=== PATIENT | male | born 1955 | race African-American/Black ===

== ENCOUNTER 2018-01-16 11:56 | Observation (INO) | payer SELFPAY ==
[2018-01-16 12:46] LABS: #Basophils 0.1 thou/uL (0.0-0.2); #Eosinphils 0.3 thou/uL (0.0-0.7); #Lymphocytes 2.2 thou/uL (1.20-3.40); #Monocytes 0.7 thou/uL (0.11-0.59); #Neutrophils 4.5 thou/uL (1.40-6.50); %Basophils 0.7 % (0.0-1.0); %Eosinophils 3.3 % (0.0-10.0); %Lymphocytes 28.3 % (21.0-51.0); %Monocytes 9.4 % (0.0-10.0); %Neutrophils 58.3 % (42.0-75.0); Hemoglobin 14.7 g/dL (14.0-18.0); Mean Corpuscular HGB CONC 32.3 g/dL (32.0-36.0); Mean Corpuscular Hemoglobin 28.8 pg (27.0-31.0); Mean Corpuscular Volume 89.1 fL (78.0-98.0); Mean Platelet Volume 8.2 fL (7.4-10.4); Platelet Count 210 thou/uL (130-400); RBC Distribution Width 13.6 % (11.5-14.5); White Blood Cell (WBC) Count 7.7 thou/uL (4.8-10.8)
[2018-01-16] MEDS ORDERED: Nitroglycerin 2% Ointment 1 INCH/1 GM Packet ONE (13:04)
--- NOTE | 2018-01-16 13:06 | RAD ---
PORTABLE CHEST: Date: 01/16/18 PROVIDED CLINICAL HISTORY: Cough. FINDINGS: Comparison with 09/29/15. The cardiac silhouette appears enlarged, which may be at least partially on the basis of portable kulwinder hnique. No focal consolidation, pleural fluid, or pneumothorax apparent. IMPRESSION: No evidence for an acute cardiopulmonary process. POS: [facility]
[2018-01-16 13:12] LABS: CKMB 3.8 ng/mL (0-6.6)
[2018-01-16 13:22] LABS: Troponin I Less than 0.010 ng/mL (< 0.028)
[2018-01-16 13:40] LABS: ALT (SGPT) 22 U/L (8-55); AST (SGOT) 28 U/L (5-34); Albumin 3.8 g/dL (3.4-4.8); Alkaline Phosphatase 158 U/L (40-150); Anion Gap 17 mmol/L (10-20); BUN (Urea Nitrogen) 15 mg/dL (8.4-25.7); Bilirubin, Total 0.6 mg/dL (0.2-1.2); CK (CPK) 272 U/L (30-200); Calc. Creatinine Clearance 0 mL/min (70-130); Calcium 8.7 mg/dL (7.8-10.44); Carbon Dioxide 19 mmol/L (23-31); Chloride 106 mmol/L (98-107); Estimated GFR-MDRD 80; Globulin 4.1 g/dL (2.4-3.5); Glucose 183 mg/dL (80-115); Lipase 14 U/L (8-78); Potassium 4.7 mmol/L (3.5-5.1); Protein, Total 7.9 g/dL (5.8-8.1); Sodium 137 mmol/L (136-145)
--- NOTE | 2018-01-16 15:06 | HP ---
PRIMARY CARE PHYSICIAN: [facility] call admission. REASON FOR ADMISSION: Chest pain. HISTORY OF PRESENT ILLNESS: This is a 62-year-old -Wel[place] male, who has a history of hypert ension and not on any medication, who came to the emergency room with a complaint of chest pain on th e left side, which started yesterday before going to bed. Because of pain, he was not able to sleep well. His pain was persistent about 6/10 in intensity. He was feeling some pressure as well as dull pain, and it was getting worse with movement as well as taking deep breath. He denies any associate d cough, but he feels shortness of breath with exertion. He denies any associated nausea, vomiting, diaphoresis. He denies any palpitation, dizziness, syncope. He denies any orthopnea, PND, or leg sw elling. Patient reports that he has hypertension, but he was not taking medication. He denies any exertion-r elated chest pain, palpitation, or shortness of breath. He denies any constipation, melena, diarrhea , or UTI symptoms. He denies any focal motor or sensory symptoms. In the emergency room, this patient had routine blood tests, which was unremarkable. His echocardiog sima was showing some repolarization-type of changes. He had slightly elevated D-dimer, but he was on room air and hypertensive. REVIEW OF SYSTEMS: The following complete review of systems was negative, unless otherwise mentioned in the HPI or below: Constitutional: Weight loss or gain, ability to conduct usual activities. Sk in: Rash, itching. Eyes: Double vision, pain. ENT/Mouth: Nose bleeding, neck stiffness, pain, te nderness. Cardiovascular: Palpitations, dyspnea on exertion, orthopnea. Respiratory: Shortness of breath, wheezing, cough, hemoptysis, fever, or night sweats. Gastrointestinal: Poor appetite, abdo chelsy pain, heartburn, nausea, vomiting, constipation, or diarrhea. Genitourinary: Urgency, frequen cy, dysuria, nocturia. Musculoskeletal: Pain, swelling. Neurologic/Psychiatric: Anxiety, depressi on. Allergy/Immunologic: Skin rash, bleeding tendency. Please see my HPI for pertinent positive an d negative. All other review of systems reviewed and negative except as mentioned in the HPI. The p atient denies any recent immobilization or any prolonged drive. He denies any calf tenderness. PAST MEDICAL HISTORY: Hypertension, untreated and uncontrolled; obesity; tobacco abuse disorder. PAST SURGICAL HISTORY: Right arm surgery, PICC line placement, incision and drainage for abscess of the right foot. PAST PSYCHIATRIC HISTORY: Reviewed and negative. SOCIAL HISTORY: Patient reports that he smokes about 5 to 6 cigarettes everyday basis. He drinks al cohol every weekend. He denies any other illicit drug abuse. He is not working. FAMILY HISTORY: No strong family history of premature coronary artery disease, stroke, or cancer. ALLERGIES: No known drug allergy. CURRENT HOME MEDICATIONS: The patient is not taking any prescribed or non-prescribed medication. EMERGENCY ROOM COURSE: Patient is given nitro patch and aspirin. PHYSICAL EXAMINATION: VITAL SIGNS: Blood pressure 180/81, pulse 82, respiratory rate 20, temperature 98.1, saturation 97% on room air, weight 98.8 kilograms. GENERAL: The patient is currently alert, awake, in no obvious acute distress. HEENT: Head: Normocephalic, atraumatic. Eyes: Pupils round, reactive to light. Extraocular muscl e intact. ENT: Oropharynx within normal limits. Moist mucous membranes. No oral lesion, no pharyn geal erythema, no exudate. NECK: Supple, no JVD, no thyromegaly, no carotid bruit, no jugular venous distention. LUNGS: Clear to auscultation without any rhonchi or rales. CARDIOVASCULAR: S1 and S2, regular. No murmur, no gallop, no rub. CHEST WALL: The patient does have mild discomfort in the left side of the chest. ABDOMEN: Obesity present. Bowel sounds present, nontender, nondistended. No organomegaly, no mass, no suprapubic tenderness, no Christensen's sign, no epigastric tenderness. BACK EXAMINATION: Unremarkable. No CVA tenderness. EXTREMITIES: Upper extremities, passive movement of all joints are normal. Lower extremities, no ed flavia. Good peripheral pulsation, no calf tenderness. SKIN: No skin rash. HEMATOLOGICAL SYSTEM: No lymphadenopathy. PSYCHIATRIC: Normal affect. SIGNIFICANT LABORATORY DATA: EKG showing normal sinus rhythm, nonspecific T-wave changes in lateral lead, which is unchanged from previous. Chest x-ray, based on my review, no acute cardiopulmonary pr ocess. CBC: WBC 7.7, hemoglobin 14.7, platelets 210. BNP 79.1. CK-MB 3.8. D-dimer 0.55. CK-MB 3 .8, troponin I less than 0.010. Lipase 14. CK 272. Sodium 137, potassium 4.7, chloride 106, carbon dioxide 19, anion gap 17, BUN 15, creatinine 1.12, glucose 183, calcium 8.7. LFT: Protein 7.9, alb umin 3.8, alkaline phosphatase is 158, AST 28, ALT 22. ASSESSMENT AND PLAN: 1. Acute chest pain. Patient's chest pain description is mostly nonanginal. He has chest pain star consuelo last night and constant without any stop. He has component of pleuritic pain and movement-relate d pain. I am suspecting mostly costochondritis, but given his slight elevated D-dimer, we need to ru le out pulmonary embolism, though probability of pulmonary embolism in this particular patient is ext remely low given hypertension and saturating normal. We will also perform nuclear medicine exercise stress test tomorrow morning for rule out ischemia. We will check lipid profile for risk stratificat ion. Meanwhile, we will continue the aspirin 325 mg p.o. daily, nitro patch q.8 hourly, and we will control his pain with the pain medication. We will also try Pepcid 20 mg p.o. b.i.d. 2. Hypertension, uncontrolled, likely due to his noncompliance with the treatment. We are going to start lisinopril 10 mg p.o. daily. Upon discharge, patient will need Coreg 6.25 mg p.o. b.i.d. We a re not giving beta delio, because we are planning to do stress test tomorrow. We will also continu e the nitro patch q.8 hourly. 3. Chronic kidney disease, stage 2. We will monitor renal function. 4. Tobacco abuse disorder. Smoking cessation counseling given. Healthy lifestyle measures discusse d with the patient. 5. Obesity. Dietary education given, weight loss education given. Healthy lifestyle measures discu ssed with the patient. 6. Deep venous thrombosis prophylaxis not needed, because we are expecting discharge in 24 hours. 7. Gastrointestinal prophylaxis, Pepcid 20 mg p.o. b.i.d. 8. Code status: The patient is FULL CODE. The patient does not have any surrogate decision maker. Disposition plan based on clinical course. We are expecting patient's stay in hospital [address] of care discussed with the patient's family member at bedside in the emergency room.
[2018-01-16] MEDS ORDERED: Artificial Tears 18 DROP/0.9 ML EA EYE PRN (15:16)
[2018-01-16] MEDS ORDERED: Nitroglycerin 0.4 MG TAB (25 Tab Bottle) SL PRN (15:16)
[2018-01-16] MEDS ORDERED: Senokot 8.6 MG TAB PO PRN (15:16)
[2018-01-16] MEDS ORDERED: Sodium Chloride 0.65% Nasal 44 ML BOT EA NARE PRN (15:16)
[2018-01-16] MEDS ORDERED: Zolpidem Tartrate 5 MG TAB PO PRN (15:16)
[2018-01-16] MEDS ORDERED: hydrALAZINE 20 MG/ML VIAL SLOW IVP PRN (15:16)
[2018-01-16] MEDS ORDERED: Loratadine 10 MG TAB PO PRN (15:16)
[2018-01-16] MEDS ORDERED: Eucerin (Mineral Oil/Petrolatum,White) 30 gm Jar TOP PRN (15:16)
[2018-01-16] MEDS ORDERED: Diabetic Tussin 200 MG/10 ML UDCUP PO PRN (15:16)
[2018-01-16] MEDS ORDERED: Ondansetron HCl/PF 4 MG/2 ML Vial IVP PRN (15:16)
[2018-01-16] MEDS ORDERED: Chloraseptic Spray 180 ml Bottle PO PRN (15:16)
[2018-01-16] MEDS ORDERED: Acetaminophen 325 MG TAB PO PRN (15:16)
[2018-01-16] MEDS ORDERED: Mag-Al 1200 mg/1200 mg/30 ML UDCUP PO PRN (15:16)
[2018-01-16] MEDS ORDERED: Ondansetron ODT 4 MG TAB PO PRN (15:16)
[2018-01-16] MEDS ORDERED: Milk Of Magnesia 30 ML UDCUP PO PRN (15:16)
[2018-01-16] MEDS ORDERED: Loperamide HCl 2 MG CAP PO PRN (15:16)
[2018-01-16 16:17] VITALS: BMI 29.9
[2018-01-16 17:05] LABS: Troponin I Less than 0.010 ng/mL (< 0.028)
[2018-01-16] MEDS: Famotidine 20 MG TAB PO SCH (19:46)
[2018-01-16] MEDS: HYDROcodone/Acetaminophen 5/325 mg Tablet PO PRN (19:46)
[2018-01-16] MEDS: Nitroglycerin 2% Ointment 1 INCH/1 GM Packet TOP SCH (19:48)
[2018-01-16 19:49] LABS: Troponin I Less than 0.010 ng/mL (< 0.028)
[2018-01-16 19:55] LABS: Medtox Reader # READER 4
[2018-01-16 19:57] LABS: Amphetamine Not Detected (NotDetected); Barbiturates Screen Not Detected (NotDetected); Benzodiazepine Screen Not Detected (NotDetected); Cocaine Metabolite Screen Detected (NotDetected); Medtox Control Line Valid? VALID (VALID); Methadone Not Detected (NotDetected); Methamphetamine Not Detected (NotDetected); Opiate Screen Not Detected (NotDetected); Oxycodone Screen Not Detected (NotDetected); Phencyclidine (PCP) Not Detected (NotDetected); THC/Cannabinoid Screen Not Detected (NotDetected); Tricyclic Screen Not Detected (NotDetected)
[2018-01-17] MEDS: HYDROcodone/Acetaminophen 5/325 mg Tablet PO PRN (00:09)
[2018-01-17 04:46] LABS: Cardiac Risk 4.5 (Less than 4.5)
[2018-01-17] MEDS: Nitroglycerin 2% Ointment 1 INCH/1 GM Packet TOP SCH ×2 (05:03→13:03)
[2018-01-17] MEDS ORDERED: Aspirin 325 MG TAB PO SCH (09:00)
[2018-01-17] MEDS ORDERED: Amlodipine 10 MG TAB PO SCH (09:00)
[2018-01-17] MEDS ORDERED: Lisinopril 10 MG TAB PO SCH (09:00)
--- NOTE | 2018-01-17 10:39 | PDOC.PN ---
- Subjective Encounter Start Date: 01/17/18 Encounter Start Time: 07:10 -: old records requested/rev Patient seen and examined. No new complaints. No overnight events - Objective Resuscitation Status: Resuscitation Status FULL:Full Resuscitation MAR Reviewed: Yes Vital Signs & Weight: Vital Signs (12 hours) Temp Pulse Resp BP BP Pulse Ox 01/17/18 08:25 98.2 F 68 19 01/17/18 07:43 98.2 F 68 19 175/99 H 97 01/17/18 04:50 71 20 140/67 95 01/17/18 03:49 98.0 F 76 16 191/91 H 95 01/16/18 23:55 98.0 F 79 20 169/75 H 97 Weight Weight 215 lb I&O: 01/16/18 01/17/18 01/18/18 06:59 06:59 06:59 Intake Total 2650 Output Total 450 Balance 2200 Result Diagrams: 01/16/18 12:35 01/16/18 12:35 EKG Reviewed by me: Yes (nsr) Phys Exam - Physical Examination Constitutional: NAD HEENT: PERRLA, moist MMs, sclera anicteric Neck: no JVD, supple Respiratory: no wheezing, no rales, no rhonchi Cardiovascular: RRR, no significant murmur, no rub Gastrointestinal: soft, non-tender, no distention, positive bowel sounds Musculoskeletal: no edema, pulses present Neurological: non-focal, normal sensation, moves all 4 limbs Lymphatic: no nodes Psychiatric: normal affect, A&O x 3 Skin: no rash, normal turgor Dx/Plan (1) Chest pain Code(s): R07.9 - CHEST PAIN, UNSPECIFIED Status: Acute (2) Cocaine abuse Code(s): F14.10 - COCAINE ABUSE, UNCOMPLICATED Status: Acute (3) CKD (chronic kidney disease), stage II Code(s): N18.2 - CHRONIC KIDNEY DISEASE, STAGE 2 (MILD) Status: Chronic (4) Hypertension Code(s): I10 - ESSENTIAL (PRIMARY) HYPERTENSION Status: Chronic (5) Obesity (BMI 30.0-34.9) Code(s): E66.9 - OBESITY, UNSPECIFIED Status: Chronic (6) Tobacco abuse Code(s): Z72.0 - TOBACCO USE Status: Chronic - Plan cont current plan of care, plan discussed w/ family * medication reviewed as below * symptomatic treatment * see discharge summery later today * stable for discharge today if stress test negative * discharge medication reconciliation done. . Review of Systems - Review of Systems Eyes: negative: Pain, Vision Change, Conjunctivae Inflammation, Eyelid Inflammation, Redness, Other ENT: negative: Ear Pain, Ear Discharge, Nose Pain, Nose Discharge, Nose Congestion, Mouth Pain, Mouth Swelling, Throat Pain, Throat Swelling, Other Respiratory: negative: Cough, Dry, Shortness of Breath, Hemoptysis, SOB with Excertion, Pleuritic Pain, Sputum, Wheezing Cardiovascular: negative: chest pain, palpitations, orthopnea, paroxysmal nocturnal dyspnea, edema, light headedness, other Gastrointestinal: negative: Nausea, Vomiting, Abdominal Pain, Diarrhea, Constipation, Melena, Hematochezia, Other Genitourinary: negative: Dysuria, Frequency, Incontinence, Hematuria, Retention , Other Musculoskeletal: negative: Neck Pain, Shoulder Pain, Arm Pain, Back Pain, Hand Pain, Leg Pain, Foot Pain, Other Skin: negative: Rash, Lesions, Jez, Bruising, Other - Medications/Allergies Allergies/Adverse Reactions: Allergies Allergy/AdvReac Type Severity Reaction Status Date / Time No Known Drug Allergies Allergy Verified 09/29/15 20:43 Medications: Current Medications Acetaminophen (Tylenol) 650 mg PO Q4H PRN PRN Reason: Headache/Fever or Pain Hydrocodone Bitart/Acetaminophen ([place] 5/325) 1 tab PO Q4H PRN PRN Reason: Moderate Pain (4-6) Last Admin: 01/17/18 00:09 Dose: 1 tab Al Hydroxide/Mg Hydroxide (Maalox) 30 ml PO Q6H PRN PRN Reason: Heartburn or Indigestion Amlodipine Besylate (Norvasc) 10 mg PO DAILY [facility] Artificial Tears (Tears Naturale) 0 drop EA EYE PRN PRN PRN Reason: Dry Eyes Aspirin (Aspirin) 325 mg PO DAILY [facility] Famotidine (Pepcid) 20 mg PO BID [facility] Last Admin: 01/16/18 19:46 Dose: 20 mg Guaifenesin (Robitussin Sf) 200 mg PO Q4H PRN PRN Reason: Cough Hydralazine HCl (Apresoline) 10 mg SLOW IVP Q4H PRN PRN Reason: Systolic BP > 180 Last Admin: 01/17/18 03:49 Dose: 10 mg Lisinopril (Zestril) 10 mg PO DAILY [facility] Last Admin: 01/17/18 00:09 Dose: 10 mg Loperamide HCl (Imodium) 2 mg PO PRN PRN PRN Reason: Diarrhea/Loose Stools Loratadine (Claritin) 10 mg PO DAILYPRN PRN PRN Reason: Sinus Symptoms Magnesium Hydroxide (Milk Of Magnesium) 30 ml PO DAILYPRN PRN PRN Reason: Constipation Mineral Oil/White Petrolatum (Eucerin Cream) 0 gm TOP BIDPRN PRN PRN Reason: Dry Skin Nitroglycerin (Nitrostat) 0.4 mg SL Q5MIN PRN PRN Reason: Chest Pain Nitroglycerin (Nitro-Bid 2% Ointment) 0.5 inch TOP Q8HR [facility] Last Admin: 01/17/18 05:03 Dose: Not Given Ondansetron HCl (Zofran Odt) 4 mg PO Q6H PRN PRN Reason: Nausea/Vomiting Ondansetron HCl (Zofran) 4 mg IVP Q6H PRN PRN Reason: Nausea/Vomiting Phenol (Chloraseptic [place] 180 Ml Bot) 0 ml PO PRN PRN PRN Reason: Sore Throat Senna (Senokot) 2 tab PO HSPRN PRN PRN Reason: Constipation Sodium Chloride ([place] Nasal [place] 0.65%) 0 ml EA NARE QIDPRN PRN PRN Reason: Nasal Congestion Zolpidem Tartrate (Ambien) 5 mg PO HSPRN PRN PRN Reason: Insomnia
[2018-01-17] MEDS: Famotidine 20 MG TAB PO SCH (11:29)
[2018-01-17 12:07] VITALS: TEMP 97.5
[2018-01-17] MEDS ORDERED: cloNIDine 0.1 MG TAB PO PRN (12:32)
[2018-01-17 12:48] VITALS: BP 169/83
--- NOTE | 2018-01-17 12:50 | NM ---
NUCLEAR MEDICINE MYOCARDIAL PERFUSION SCAN: DATE: 01/17/18. COMPARISON: None. HISTORY: Chest pain. TECHNIQUE: SPECT imaging of the left ventricular myocardium obtained during rest and stress following the intrav enous administration of 27.3 and 9.0 mCi Technetium 99m labelled sestamibi. FINDINGS: No discrete fixed or reversible defect is noted. TID is 1.23. Wall motion evaluation demonstrates mild global hypokinesis with a left ventricular eje ction fraction estimated at 38%. EDV is 142 mL and ESV is 88 mL. IMPRESSION: Global mild hypokinesis with the left ventricular ejection fraction at 38%. TID Is 1.23. No focal r eversible defect seen. POS: [facility]
--- NOTE | 2018-01-17 12:56 | DIS ---
PRIMARY CARE PHYSICIAN: [facility]. DATE OF ADMISSION: 01/16/2018 DATE OF DISCHARGE: 01/17/2018 DISCHARGE DISPOSITION: Home. PRIMARY DISCHARGE DIAGNOSES: 1. Hypertensive urgency. 2. Chest pain, likely due to cocaine abuse. SECONDARY DISCHARGE DIAGNOSES: Tobacco abuse disorder, polysubstance drug abuse , obesity with body mass index 30, hypertension, CKD stage 2. PRIMARY PROCEDURE/OPERATION: None. RADIOLOGICAL INVESTIGATION: Chest x-ray normal. Stress test revealed no reversible ischemia. SIGNIFICANT LABORATORY DATA: WBC 7.7, hemoglobin 14.7, platelet 210. D-dimer 0.55. Sodium 137, creatinine 1.12, AST 28, ALT 22, alkaline phosphatase is 158 , albumin 3.8. Cardiac enzymes negative. BNP 79.1. LDL 78, lipase 14. Urine drug screen positive for cocaine. DISCHARGE MEDICATIONS: Norvasc 10 mg p.o. daily, aspirin 81 mg p.o. daily, clonidine 0.1 mg p.o. b.i.d., Pepcid 20 mg p.o. b.i.d., lisinopril 10 mg p.o. daily. CONTRAINDICATIONS: None. CODE STATUS: FULL CODE. INPATIENT CONSULTANTS: None. ALLERGIES: No known drug allergy. DISCHARGE PLAN: Post hospital, the patient will follow up with primary care physician in 1 or 2 weeks. HOSPITAL COURSE: The patient is a 62-year-old male who came to emergency room with complaint of chest pain. His chest pain description was atypical. He was changing his character of chest pain. This patient was having very high blood pressure on admission. We suspected drug abuse and that is why we did urine drug screen and it was positive for cocaine that was contributing to his chest pain and elevated hypertension. He had slightly elevated D-dimer, but that was not contributing to any thromboembolic disorder. This patient was on room air and his description was not consistent with thromboembolic disorder and was extremely very, very low. We did not pursue any investigation at this point. He remained stable while in the hospital. He was hypertensive and that is why we started lisinopril, amlodipine and clonidine as above. Necessary patient education about avoidance of smoking cocaine abuse was given. Healthy lifestyle measures discussed with the patient. The patient underwent stress test and that was negative for any reversible ischemia. His troponins remain negative. His telemetry remained normal. His BNP is normal. At this point, patient is medically stable for discharge today. The patient is seen and examined at bedside today. Please see my progress note from today for further details. MTDD
[2018-01-17] MEDS ORDERED: ADENOSINE 60 MG/20 ML VIAL ONE (13:12)
[2018-01-17] MEDS ORDERED: cloNIDine 0.1 MG TAB PO SCH (21:00)
== END 2018-01-17 14:38 | disposition home or self-care (01) ==
LOC: ERS 11:56 → 2SW 15:12
PROVIDERS: ADMIT Internal Medicine; ATTEND Internal Medicine
DX: R07.9 Chest pain, unspecified (principal); I16.0 Hypertensive urgency; I12.9 Hypertensive chronic kidney disease with stage 1 through stage 4 chronic kidney disease, or unspecified chronic kidney disease; N18.2 Chronic kidney disease, stage 2 (mild); E66.9 Obesity, unspecified; F17.210 Nicotine dependence, cigarettes, uncomplicated; F14.10 Cocaine abuse, uncomplicated; Z68.30 Body mass index [BMI] 30.0-30.9, adult; Z79.82 Long term (current) use of aspirin; Z79.899 Other long term (current) drug therapy
CPT/HCPCS: 36415; 71045; 78452; 80053; 80061; 80306; 82550; 82553; 83690; 83880; 84484; 85025; 85379; 93005; 93017; 96374; 99406; A9500; G0378; J0153; J0360

== ENCOUNTER 2018-10-12 11:07 | Inpatient (IN) | payer SELFPAY ==
[2018-10-12] MEDS ORDERED: Nitroglycerin 0.4 MG TAB 1 EACH ONE (11:33)
--- NOTE | 2018-10-12 11:41 | RAD ---
EXAM: XR Chest 1 View Portable PROVIDED CLINICAL HISTORY: Left-sided chest pain with pain radiating to left arm. Diaphoresis. COMPARISON: 01/17/2028 FINDINGS: Cardiac pacing device overlies the right upper chest and left upper quadrant. The cardiac silhouette is magnified by projection. The pulmonary vasculature is within normal limits. The lungs remain clear . There is prominent right glenohumeral osteoarthropathy again noted with degenerative changes again seen in the spine. No other interval change. IMPRESSION: No acute cardiopulmonary process.
[2018-10-12 11:44] LABS: #Eosinphils 0.1 thou/uL (0.0-0.7); #Monocytes 0.7 thou/uL (0.11-0.59); #Neutrophils 5.4 thou/uL (1.40-6.50); %Basophils 0.5 % (0.0-1.0); %Eosinophils 1.4 % (0.0-10.0); %Lymphocytes 31.9 % (21.0-51.0); %Monocytes 7.9 % (0.0-10.0); %Neutrophils 58.4 % (42.0-75.0); Hemoglobin 15.1 g/dL (14.0-18.0); Mean Corpuscular HGB CONC 32.8 g/dL (32.0-36.0); Mean Corpuscular Volume 88.3 fL (78.0-98.0); Mean Platelet Volume 7.7 fL (7.4-10.4); Platelet Count 262 thou/uL (130-400); RBC Distribution Width 13.7 % (11.5-14.5); Red Blood Cell (RBC) Count 5.22 mill/uL (4.70-6.10); White Blood Cell (WBC) Count 9.3 thou/uL (4.8-10.8)
[2018-10-12] MEDS ORDERED: Iopamidol 370 76% 100 ML VIAL ONE (11:59)
[2018-10-12 12:01] LABS: ALT (SGPT) 35 U/L (8-55); AST (SGOT) 43 U/L (5-34); Albumin 3.8 g/dL (3.4-4.8); Alkaline Phosphatase 126 U/L (40-150); Anion Gap 13 mmol/L (10-20); BUN (Urea Nitrogen) 16 mg/dL (8.4-25.7); Bilirubin, Total 0.4 mg/dL (0.2-1.2); CK (CPK) 335 U/L (30-200); Calc. Creatinine Clearance 0 mL/min (70-130); Calcium 9.4 mg/dL (7.8-10.44); Carbon Dioxide 27 mmol/L (23-31); Estimated GFR-MDRD 74; Globulin 4.2 g/dL (2.4-3.5); Glucose 148 mg/dL (80-115); Lipase 7 U/L (8-78)
[2018-10-12] MEDS ORDERED: Heparin 10,000 UNITS/1 ML VIAL ONE (12:03)
[2018-10-12] MEDS ORDERED: Atropine Sulfate 1 mg/10 ml Syringe ONE (12:03)
[2018-10-12] MEDS ORDERED: Aspirin Chewable 81 MG TAB ONE (12:03)
[2018-10-12] MEDS ORDERED: Nitroglycerin 100MG/250ML BOT 250 ML ONE (12:16)
[2018-10-12 12:18] LABS: Chloride 101 mmol/L (98-107); Potassium 4.1 mmol/L (3.5-5.1); Sodium 137 mmol/L (136-145)
[2018-10-12] MEDS ORDERED: Adenosine 6 MG/2 ML VIAL ONE (12:19)
[2018-10-12 12:33] LABS: CKMB 8.7 ng/mL (0-6.6)
[2018-10-12] MEDS ORDERED: traMADol HCl 50 MG TAB PO PRN (12:50)
[2018-10-12] MEDS ORDERED: Milk Of Magnesia 30 ML UDCUP PO PRN (12:50)
[2018-10-12] MEDS ORDERED: Zolpidem Tartrate 5 MG TAB PO PRN (12:50)
[2018-10-12] MEDS ORDERED: Acetaminophen/Codeine 30-300mg Tablet PO PRN (12:50)
[2018-10-12] MEDS ORDERED: Mag-Al 1200 mg/1200 mg/30 ML UDCUP PO PRN (12:50)
[2018-10-12] MEDS ORDERED: Nitroglycerin 0.4 MG TAB (25 Tab Bottle) SL PRN (12:50)
[2018-10-12] MEDS ORDERED: Morphine 2 MG/ML SYRINGE SLOW IVP PRN (12:50)
[2018-10-12] MEDS ORDERED: Sodium Chloride 0.9% 1,000 ML IV SCH (13:00)
[2018-10-12] MEDS ORDERED: hydrALAZINE 20 MG/ML VIAL ONE (13:33)
--- NOTE | 2018-10-12 13:37 | HP ---
REASON FOR ADMISSION: Inferior ST-elevation NC. HISTORY OF PRESENT ILLNESS: Mr. Jennings is a 62-year-old gentleman, who comes to the hospital for chest pain. He started having chest pain at 7:30 a.m. this morning. He had breakfast prior to that. He continued to have pain, so showed up to the hospital close to noon. He had an EKG initially that showed ischemic inferior changes. A repeat EKG showed complete heart block and ST elevation in the inferior leads, so the STEMI pager was activated. On my evaluation initially, he had ongoing chest pain with ongoing ST elevations, so we brought him emergently to the catheterization lab where he was found to have a subtotaled and eventually occluded RCA. This was wired, ballooned open, and stented successfully with bare-metal stent. He had also a 70% lesion on the mid RCA which also received a bare-metal stent. He has moderate residual disease in a diagonal. Nothing flow limiting that would require further intervention. He is chest pain free. His complete heart block has resolved completely and is doing better. PAST MEDICAL HISTORY: 1. Hypertension. 2. Obesity. 3. Tobacco abuse. 4. Drug abuse in the past with cocaine. 5. Noncompliance. SURGICAL HISTORY: 1. Right arm surgery. 2. Incision and drainage of abscess in the right foot. SOCIAL HISTORY: Smokes about 5 cigarettes a day. Drinks alcohol only on weekends. Denies drug use, but has been positive for cocaine in the past. FAMILY HISTORY: No early coronary artery disease. OUTPATIENT MEDICATIONS: None. ALLERGIES: NO KNOWN DRUG ALLERGIES. REVIEW OF SYSTEMS: A 12-point review of systems was done and was found to be negative unless stated in the History of Present Illness. PHYSICAL EXAMINATION: VITAL SIGNS: Temperature 98.2, pulse 80, respiratory rate 20, saturations 98% on 2 L nasal cannula, blood pressure 138/62. GENERAL: Awake, alert, and oriented x3, in no distress. HEENT: Normocephalic and atraumatic. NECK: Supple. LUNGS: Clear. CARDIOVASCULAR: S1 and S2. No S3 or S4. No murmurs. ABDOMEN: Soft. Positive bowel sounds. EXTREMITIES: No edema. SKIN: Warm and dry. LABORATORY DATA: Laboratory work was reviewed. CBC with a white count of 9.3, hemoglobin of 15, hematocrit of 46, platelet count of 262. Coags were reviewed. Chemistries were reviewed. Troponin initially was 0.3 with a CK-MB of 8.7. Glucose was 148, but this is nonfasting, globulin of 4.2, lipase is 7. Chest x-ray on admission today showed no acute cardiopulmonary process. EKG was reviewed. ASSESSMENT: 1. Acute inferior ST-elevation myocardial infarction. 2. Hypertension. 3. Noncompliance. 4. Substance abuse in the past. PLAN: 1. Dual anticoagulant therapy with Plavix and aspirin for minimum of 1 month and then aspirin for life. 2. High dose statins. 3. We will start beta-delio and MILLY inhibitor tomorrow as long as blood pressure allows. 4. Echocardiogram pending. 5. Counseled on cessation of substance abuse. 6. Full code. 7. We will admit to the ICU overnight, probably transfer to the floor if stable tomorrow. DISPOSITION: Home when clinically indicated. Job ID: [id number]
[2018-10-12 15:04] LABS: CKMB 43.1 ng/mL (0-6.6); Troponin I 1.771 ng/mL (< 0.028)
[2018-10-12] MEDS ORDERED: Morphine 2 MG/ML SYRINGE ONE (15:21)
[2018-10-12] MEDS ORDERED: hydrALAZINE 20 MG/ML VIAL SLOW IVP SCH (16:15)
[2018-10-12] MEDS ORDERED: Fentanyl 100 MCG/2 ML VIAL ONE (16:25)
--- NOTE | 2018-10-12 17:10 | EKG ---
Test Reason : Blood Pressure : / mmHG Vent. Rate : 082 BPM Atrial Rate : 082 BPM P-R Int : 176 ms QRS Dur : 100 ms QT Int : 410 ms P-R-T Axes : 067 061 042 degrees QTc Int : 479 ms Normal sinus rhythm Possible Left atrial enlargement Prolonged QT Abnormal ECG When compared with ECG of 16-JAN-2018 12:01, Nonspecific T wave abnormality no longer evident in Inferior leads Confirmed by Laura MUJICA ([id number]) on 10/12/2018 5:09:45 PM Referred By: THOMPSON Confirmed By:Laura MUJICA
[2018-10-12] MEDS ORDERED: Fentanyl 100 MCG/2 ML VIAL SLOW IVP SCH (17:15)
[2018-10-12 18:27] VITALS: BMI 30.9
[2018-10-12 19:59] LABS: CKMB 86.1 ng/mL (0-6.6); Troponin I 10.359 ng/mL (< 0.028)
[2018-10-12 20:23] LABS: Medtox Reader # READER 1
[2018-10-12 20:24] LABS: Amphetamine Not Detected (NotDetected); Barbiturates Screen Not Detected (NotDetected); Benzodiazepine Screen Not Detected (NotDetected); Cocaine Metabolite Screen Detected (NotDetected); Medtox Control Line Valid? VALID (VALID); Methadone Not Detected (NotDetected); Methamphetamine Not Detected (NotDetected); Opiate Screen Detected (NotDetected); Oxycodone Screen Not Detected (NotDetected); Phencyclidine (PCP) Not Detected (NotDetected); THC/Cannabinoid Screen Not Detected (NotDetected); Tricyclic Screen Not Detected (NotDetected)
[2018-10-12] MEDS: Atorvastatin Calcium 40 MG TAB PO SCH (20:30)
[2018-10-13 06:12] LABS: #Basophils 0.1 thou/uL (0.0-0.2); #Eosinphils 0.1 thou/uL (0.0-0.7); #Lymphocytes 2.4 thou/uL (1.20-3.40); #Monocytes 0.8 thou/uL (0.11-0.59); %Basophils 0.7 % (0.0-1.0); %Eosinophils 0.8 % (0.0-10.0); %Lymphocytes 25.5 % (21.0-51.0); %Monocytes 8.3 % (0.0-10.0); %Neutrophils 64.7 % (42.0-75.0); Hemoglobin 13.7 g/dL (14.0-18.0); Mean Corpuscular HGB CONC 31.1 g/dL (32.0-36.0); Mean Corpuscular Hemoglobin 27.6 pg (27.0-31.0); Mean Corpuscular Volume 88.8 fL (78.0-98.0); Mean Platelet Volume 7.8 fL (7.4-10.4); Platelet Count 238 thou/uL (130-400); RBC Distribution Width 13.7 % (11.5-14.5); Red Blood Cell (RBC) Count 4.97 mill/uL (4.70-6.10); White Blood Cell (WBC) Count 9.2 thou/uL (4.8-10.8)
[2018-10-13 06:33] LABS: ALT (SGPT) 30 U/L (8-55); AST (SGOT) 64 U/L (5-34); Albumin 3.2 g/dL (3.4-4.8); Alkaline Phosphatase 103 U/L (40-150); Anion Gap 11 mmol/L (10-20); BUN (Urea Nitrogen) 13 mg/dL (8.4-25.7); Bilirubin, Total 0.6 mg/dL (0.2-1.2); Calc. Creatinine Clearance 121 mL/min (70-130); Calcium 9.1 mg/dL (7.8-10.44); Carbon Dioxide 22 mmol/L (23-31); Chloride 107 mmol/L (98-107); Cholesterol 140 mg/dl (< 200 Desired); Estimated GFR-MDRD Greater than 90; Globulin 3.7 g/dL (2.4-3.5); Glucose 103 mg/dL (80-115); HDL Cholesterol 28 mg/dL (>60 Neg Risk); LDL Cholesterol, Calculated 87 mg/dL; Potassium 4.1 mmol/L (3.5-5.1); Protein, Total 6.9 g/dL (5.8-8.1); Sodium 136 mmol/L (136-145); Triglycerides 127 mg/dL (Less than 150)
[2018-10-13 06:50] LABS: Free T4 (Free Thyroxine) 0.94 ng/dL (0.70-1.48); Thyroid Stimulating Hormone 0.6646 uIU/mL (0.35-4.94)
[2018-10-13] MEDS ORDERED: Lisinopril 2.5 MG TAB PO SCH (09:00)
[2018-10-13] MEDS: Clopidogrel Bisulfate 75 MG TAB PO SCH (09:28)
[2018-10-13] MEDS: Metoprolol Tartrate 25 MG TAB PO SCH ×2 (09:29→20:39)
[2018-10-13] MEDS: Aspirin Chewable 81 MG TAB PO SCH (09:29)
[2018-10-13 10:45] LABS: CKMB 37.5 ng/mL (0-6.6)
--- NOTE | 2018-10-13 16:25 | PDOC.CTH ---
Cardiology Progress Note - Subjective He is doing well. No chest pain. - Objective Vital Signs Temp Pulse Pulse Pulse Resp BP BP 10/13/18 16:15 99 F 69 20 10/13/18 16:00 99 F 10/13/18 15:00 97.9 F 10/13/18 14:00 98.8 F 10/13/18 12:00 98.1 F 10/13/18 09:56 72 73 156/94 H 10/13/18 09:27 86 159/77 H 10/13/18 08:00 10/13/18 07:00 98.7 F BP BP Pulse Ox Pulse Ox Pulse Ox 10/13/18 16:15 163/67 H 97 10/13/18 16:00 10/13/18 15:00 10/13/18 14:00 10/13/18 12:00 10/13/18 09:56 175/90 H 96 96 10/13/18 09:27 10/13/18 08:00 96 10/13/18 07:00 Admit Weight 222 lb 3.615 oz Weight 222 lb 3.615 oz 10/12/18 10/13/18 10/14/18 06:59 06:59 06:59 Intake Total 1463 720 Output Total 500 300 Balance 963 420 - Physical Examination General/Neuro: alert & oriented x3, NAD Neck: no JVD present Lungs: CTA, unlabored respirations Heart: RRR Abdomen: NT/ND Extremities: other: (no edema) - Telemetry Telemetry Rhythm: NSR - Labs Result Diagrams: 10/13/18 05:52 10/13/18 05:52 Troponin/CKMB CK-MB (CK-2) 37.5 ng/mL (0-6.6) H* 10/13/18 09:40 Troponin I 7.276 ng/mL (< 0.028) H* 10/13/18 09:40 - Assessment/Plan 1. Acute inferior STEMI. 2. HTN 3. Noncompliacne 4. Substance abuse PLAN: - Cocaine positive. - Counselled on cessation og tobacco and cocaine,. - JUST[place] for 1 month ideally for one year. - Will increase Lisinopril for better BP control. - High dos statins. - Will transfer to telemetry. - Likely home tomorrow.
[2018-10-13] MEDS: Atorvastatin Calcium 40 MG TAB PO SCH (20:39)
--- NOTE | 2018-10-14 00:29 | CON ---
DATE OF CONSULTATION: 10/13/2018 HISTORY OF PRESENT ILLNESS: Mr. Jennings is a very pleasant 62-year-old male who recreationally uses cocaine. He came in with myocardial infarction, underwent emergent cardiac catheterization with stenting. He says he is pain-free now. PAST MEDICAL HISTORY: 1. Remarkable for hypertension. 2. History of tobacco use. 3. History of surgery on his right arm and incision and drainage of an abscess of his right foot. SOCIAL HISTORY: He smokes 5 cigarettes a day. Occasionally uses cocaine. Drinks alcohol on the weekends. FAMILY HISTORY: Negative for lung disease in early age. ALLERGIES: HE HAS NO REPORTED ALLERGIES. REVIEW OF SYSTEMS: 10 point review of systems completed, completely negative. PHYSICAL EXAMINATION: GENERAL: He is a very pleasant gentleman, in no distress. He is afebrile. Heart rate 69, respiratory rate 20, oximetry is 97% on room air, blood pressure 163/ 67. HEENT: His pupils are equal. Sclerae are anicteric. NECK: Supple. No lymphadenopathy. LUNGS: Clear. HEART: Regular rhythm. S1, S2 normal. No murmur or gallop. ABDOMEN: Soft and nontender. No masses. EXTREMITIES: Without clubbing, cyanosis, or edema. NEUROLOGY: Grossly nonfocal. LABORATORY DATA: White count is 9.2, hemoglobin 13.7, platelets 238. Sodium 136, potassium 4.1, chloride 107, bicarb 22, BUN 13, creatinine 0.9, glucose 103. Troponin peaked at 10.3. IMPRESSION: 1. Myocardial infarction status post stenting. 2. Cocaine use. We discussed abstinence from tobacco and cocaine. 3. He says he has done with his extracurricular activities. Hopefully, he will proceed down the road in a stable fashion. We will see him as long as he is in the Critical Care Unit. TIME SPENT: This is a 70-minute consult, with greater than 50% of the time spent on the unit coordinating care. Job ID: [id number] MTDD
[2018-10-14 08:31] LABS: #Basophils 0.1 thou/uL (0.0-0.2); #Eosinphils 0.2 thou/uL (0.0-0.7); #Lymphocytes 2.4 thou/uL (1.20-3.40); #Monocytes 0.8 thou/uL (0.11-0.59); #Neutrophils 4.4 thou/uL (1.40-6.50); %Basophils 0.7 % (0.0-1.0); %Eosinophils 2.3 % (0.0-10.0); %Lymphocytes 30.9 % (21.0-51.0); %Monocytes 9.7 % (0.0-10.0); %Neutrophils 56.3 % (42.0-75.0); Hemoglobin 13.5 g/dL (14.0-18.0); Mean Corpuscular HGB CONC 30.9 g/dL (32.0-36.0); Mean Corpuscular Hemoglobin 27.7 pg (27.0-31.0); Mean Corpuscular Volume 89.7 fL (78.0-98.0); Mean Platelet Volume 7.9 fL (7.4-10.4); Platelet Count 235 thou/uL (130-400); RBC Distribution Width 13.8 % (11.5-14.5); Red Blood Cell (RBC) Count 4.89 mill/uL (4.70-6.10); White Blood Cell (WBC) Count 7.9 thou/uL (4.8-10.8)
[2018-10-14 08:49] LABS: ALT (SGPT) 39 U/L (8-55); AST (SGOT) 47 U/L (5-34); Albumin 3.3 g/dL (3.4-4.8); Alkaline Phosphatase 116 U/L (40-150); Anion Gap 12 mmol/L (10-20); BUN (Urea Nitrogen) 13 mg/dL (8.4-25.7); Bilirubin, Total 0.7 mg/dL (0.2-1.2); Calc. Creatinine Clearance 116 mL/min (70-130); Carbon Dioxide 21 mmol/L (23-31); Chloride 107 mmol/L (98-107); Estimated GFR-MDRD Greater than 90; Globulin 3.6 g/dL (2.4-3.5); Glucose 143 mg/dL (80-115); Potassium 3.9 mmol/L (3.5-5.1); Protein, Total 6.9 g/dL (5.8-8.1); Sodium 136 mmol/L (136-145)
[2018-10-14] MEDS ORDERED: Lisinopril 5 MG TAB PO SCH (09:00)
[2018-10-14] MEDS: Metoprolol Tartrate 25 MG TAB PO SCH ×2 (09:18→18:15)
[2018-10-14] MEDS: Clopidogrel Bisulfate 75 MG TAB PO SCH (09:19)
[2018-10-14] MEDS: Aspirin Chewable 81 MG TAB PO SCH (09:19)
[2018-10-14 15:53] VITALS: BP 166/79; TEMP 99.1
[2018-10-14] MEDS: Atorvastatin Calcium 40 MG TAB PO SCH (18:15)
[2018-10-15] MEDS ORDERED: Lisinopril 10 MG TAB PO SCH (09:00)
[2018-10-15] MEDS ORDERED: Amlodipine 10 MG TAB PO SCH (09:00)
--- NOTE | 2018-10-17 07:36 | DIS ---
DATE OF ADMISSION: 10/12/2018 DATE OF DISCHARGE: 10/14/2018 PRIMARY DIAGNOSES: 1. Inferior ST-elevation myocardial infarction. 2. Substance abuse, positive for cocaine. 3. Hypertension. PROCEDURES PERFORMED: 1. Heart catheterization with bare-metal stenting to the RCA. 2. Echocardiogram. SUMMARY: Mr. Jennings is a 62-year-old gentleman, who came to the hospital for chest pain. He was diagnosed with an acute ST-elevation [place] and transferred over and received a bare-metal stent to the right coronary artery. He tested positive for cocaine. He admitted to this as well. He was doing much better. He has remained asymptomatic and with normal sinus rhythm throughout his hospital stay. He has tolerated all his medications. He was evaluated today and will be discharged home in a stable condition. DISCHARGE MEDICATIONS: Unchanged from his home medications except the addition of: 1. Plavix 75 mg a day. 2. Aspirin 81 mg a day. 3. Metoprolol 12.5 mg b.i.d. 4. Sublingual nitroglycerin p.r.n. for chest pain. 5. Atorvastatin 80 mg at bedtime. Follow up in the office in 1 month. Over 30 minutes was spent at bedside counseling for discharge. Job ID: [id number]
== END 2018-10-14 18:30 | disposition home or self-care (01) | DRG 249 ==
LOC: ERS 11:07 → CCU 12:58 → 2NO 10-13 18:27
PROVIDERS: ADMIT Internal Medicine Cardiovascular Disease; ATTEND Internal Medicine Cardiovascular Disease
PROC: 02713EZ Dilation of Coronary Artery, Two Arteries with Two Intraluminal Devices, Percutaneous Approach (ICD-10-PCS; principal; 2018-10-12)
PROC: 4A023N7 Measurement of Cardiac Sampling and Pressure, Left Heart, Percutaneous Approach (ICD-10-PCS; 2018-10-12)
PROC: B2111ZZ Fluoroscopy of Multiple Coronary Arteries using Low Osmolar Contrast (ICD-10-PCS; 2018-10-12)
PROC: B2151ZZ Fluoroscopy of Left Heart using Low Osmolar Contrast (ICD-10-PCS; 2018-10-12)
DX: I21.19 ST elevation (STEMI) myocardial infarction involving other coronary artery of inferior wall (principal); I44.2 Atrioventricular block, complete; I10 Essential (primary) hypertension; F17.210 Nicotine dependence, cigarettes, uncomplicated; I25.10 Atherosclerotic heart disease of native coronary artery without angina pectoris; E66.9 Obesity, unspecified; F14.10 Cocaine abuse, uncomplicated; Z68.31 Body mass index [BMI] 31.0-31.9, adult; Z91.19 Patient's noncompliance with other medical treatment and regimen
CPT/HCPCS: 36415; 71045; 80053; 80061; 80306; 82550; 82553; 83690; 83880; 84439; 84443; 84484; 85025; 85347; 92941; 93005; 93010; 93306; 93458; 93798; 94760; C1725; C1769; C1876; C1887; J0153; J0360; J0461; J1644; J2270; J3010; Q9967

== ENCOUNTER 2019-01-24 10:55 | Emergency (ER) | payer SELFPAY ==
[2019-01-24] MEDS ORDERED: methylPREDNISolone Sod Succ/PF 125 MG/2 ML VIAL ONE (11:53)
[2019-01-24 12:04] LABS: #Eosinphils 0.2 thou/uL (0.0-0.7); #Lymphocytes 2.4 thou/uL (1.20-3.40); #Monocytes 0.9 thou/uL (0.11-0.59); #Neutrophils 4.9 thou/uL (1.40-6.50); %Basophils 0.5 % (0.0-1.0); %Eosinophils 2.1 % (0.0-10.0); %Lymphocytes 29.1 % (21.0-51.0); %Monocytes 10.2 % (0.0-10.0); %Neutrophils 58.1 % (42.0-75.0); Hemoglobin 14.1 g/dL (14.0-18.0); Mean Corpuscular HGB CONC 31.2 g/dL (32.0-36.0); Mean Corpuscular Hemoglobin 27.8 pg (27.0-31.0); Mean Corpuscular Volume 88.9 fL (78.0-98.0); Mean Platelet Volume 7.8 fL (7.4-10.4); Platelet Count 236 thou/uL (130-400); RBC Distribution Width 13.5 % (11.5-14.5); Red Blood Cell (RBC) Count 5.09 mill/uL (4.70-6.10); White Blood Cell (WBC) Count 8.4 thou/uL (4.8-10.8)
[2019-01-24 12:21] LABS: ALT (SGPT) 39 U/L (8-55); AST (SGOT) 49 U/L (5-34); Albumin 3.6 g/dL (3.4-4.8); Alkaline Phosphatase 120 U/L (40-150); Anion Gap 15 mmol/L (10-20); BUN (Urea Nitrogen) 26 mg/dL (8.4-25.7); Bilirubin, Total 0.9 mg/dL (0.2-1.2); Calc. Creatinine Clearance 0 mL/min (70-130); Calcium 9.1 mg/dL (7.8-10.44); Carbon Dioxide 23 mmol/L (23-31); Chloride 104 mmol/L (98-107); Estimated GFR-MDRD 58; Globulin 4.2 g/dL (2.4-3.5); Glucose 140 mg/dL (80-115); Protein, Total 7.8 g/dL (5.8-8.1); Sodium 138 mmol/L (136-145)
--- NOTE | 2019-01-24 12:32 | RAD ---
EXAM: Chest Two Views 01/24/2019 12:28 PM HISTORY: Cough COMPARISON: October 12, 2018 FINDINGS: Heart: There is mild/moderate cardiomegaly Pulmonary vessels: There is mild to moderate pulmonary vascular congestion Costophrenic angles: There are small bilateral pleural effusions Lungs: There is perihilar airspace opacities. Pneumothorax: None. Osseous structures:There is scattered degenerative change. No acute osseous abnormality. Additional findings: None. IMPRESSION: Findings of mild CHF. Perihilar airspace opacities are most suspicious for edema. A component of pneu monia cannot be entirely excluded. Recommend correlation with the clinical examination.
[2019-01-24] MEDS ORDERED: Furosemide 40 MG/4 ML VIAL ONE (13:19)
[2019-01-24] MEDS ORDERED: Azithromycin 250 MG TAB ONE (13:25)
== END 2019-01-24 13:40 | disposition home or self-care (01) ==
LOC: ERS 10:55
DX: I11.0 Hypertensive heart disease with heart failure (principal); I50.9 Heart failure, unspecified; I25.2 Old myocardial infarction; E78.5 Hyperlipidemia, unspecified; F17.210 Nicotine dependence, cigarettes, uncomplicated; Z79.82 Long term (current) use of aspirin; Z79.891 Long term (current) use of opiate analgesic; Z79.899 Other long term (current) drug therapy
CPT/HCPCS: 36415; 71046; 80053; 83880; 84484; 85025; 87081; 87430; 93005; 94640; 94760; 96361; 96374; 96375; J1940; J2930; J7620

== ENCOUNTER 2019-01-27 00:47 | Inpatient (IN) | payer SELFPAY ==
[2019-01-27 01:18] LABS: #Basophils 0.1 thou/uL (0.0-0.2); #Eosinphils 0.2 thou/uL (0.0-0.7); #Lymphocytes 2.5 thou/uL (1.20-3.40); #Neutrophils 5.8 thou/uL (1.40-6.50); %Eosinophils 2.6 % (0.0-10.0); %Lymphocytes 25.9 % (21.0-51.0); %Monocytes 10.1 % (0.0-10.0); %Neutrophils 60.4 % (42.0-75.0); Hemoglobin 14.3 g/dL (14.0-18.0); Mean Corpuscular HGB CONC 32.7 g/dL (32.0-36.0); Mean Corpuscular Hemoglobin 28.5 pg (27.0-31.0); Mean Corpuscular Volume 87.2 fL (78.0-98.0); Mean Platelet Volume 8.2 fL (7.4-10.4); Platelet Count 233 thou/uL (130-400); RBC Distribution Width 13.1 % (11.5-14.5); Red Blood Cell (RBC) Count 5.02 mill/uL (4.70-6.10); White Blood Cell (WBC) Count 9.6 thou/uL (4.8-10.8)
[2019-01-27] MEDS ORDERED: Aspirin Chewable 81 MG TAB ONE (01:21)
[2019-01-27] MEDS ORDERED: Dexamethasone 10 MG/ML VIAL ONE (01:21)
[2019-01-27 01:42] LABS: ALT (SGPT) 31 U/L (8-55); AST (SGOT) 33 U/L (5-34); Albumin 3.4 g/dL (3.4-4.8); Alkaline Phosphatase 148 U/L (40-150); Anion Gap 13 mmol/L (10-20); BUN (Urea Nitrogen) 41 mg/dL (8.4-25.7); Bilirubin, Total 0.4 mg/dL (0.2-1.2); Calc. Creatinine Clearance 0 mL/min (70-130); Calcium 8.9 mg/dL (7.8-10.44); Carbon Dioxide 23 mmol/L (23-31); Chloride 106 mmol/L (98-107); Estimated GFR-MDRD 65; Globulin 4.3 g/dL (2.4-3.5); Glucose 149 mg/dL (80-115); Potassium 4.1 mmol/L (3.5-5.1); Protein, Total 7.7 g/dL (5.8-8.1); Sodium 138 mmol/L (136-145)
[2019-01-27] MEDS ORDERED: Azithromycin 500 MG VIAL ONE (03:48)
[2019-01-27] MEDS ORDERED: cefTRIAXone\\ROCEPHIN 1 GM VIAL ONE (03:49)
[2019-01-27] MEDS ORDERED: Sodium Chloride For Inhalation 0.9% 3 ML NEB ONE (05:41)
--- NOTE | 2019-01-27 07:41 | CT ---
PRELIMINARY REPORT/[facility]/EMERGENCY AFTER HOURS PROCEDURE: EXAM: CT Angiography Chest With Contrast EXAM DATE/TIME: 01/27/2019 2:06 AM CLINICAL HISTORY: 63 years old, male; Cough and shortness of breath; Patient HX: M63 w/ HX of HTN and mi presents to the ED for evaluation of SOB and chest pain onset today. PT reports chest pain was onset 1.5 hours ago and lasted about 10 min. PT reports his pain is similar to angina he has experienced in the past. States his throat feels "full. " PT denies using o2 at home. TECHNIQUE: Imaging protocol: Axial computed tomographic angiography images of the chest with intravenous contrast using CT angiography protocol. 3D rendering: MIP reconstructed images were created and reviewed. COMPARISON: No relevant prior studies available. FINDINGS: Pulmonary arteries: Contrast enhancement of segmental and subsegmental pulmonary arteries is suboptimal. No pulmonary embolism is identified. Aorta: Calcifications in the estevez of the aorta and other arteries are consistent with atherosclerosi s. No thoracic aortic aneurysm or dissection is identified. Lungs: There is a 3.5 x 2.8 cm mass in the right lung apex. There are right perihilar consolidations and patchy groundglass opacities in the right upper, middle and lower lobes. There is a probable calcified granuloma in the right lower lobe. Pleural space: There is a moderate-sized right pleural effusion. There is a small left pleural effusi on. Heart: There are widespread coronary artery calcifications. A pericardial effusion measures 2.5 cm in thickness. It demonstrates increased density. Mediastinum: Mild infiltration of the anterior mediastinal fat is nonspecific. Kidneys and ureters: There is a nonobstructing right renal calculus. Lymph nodes: There is right hilar lymphadenopathy. Bones/joints: There are degenerative changes in the spine. There is sclerosis in multiple vertebral bodies and right scapula adjacent to glenoid cavity. Soft tissues: Unremarkable. IMPRESSION: 1. No pulmonary embolism identified. 2. Pleural and pericardial effusions. 3. Right upper lobe mass. 4. Right perihilar consolidations and opacities that may be due to pneumonia or neoplasm. 5. Right hilar lymphadenopathy. 6. Nonobstructing right renal calculus. 7. Sclerosis in multiple vertebral bodies and right scapula which may be due to degenerative changes or neoplasm. 8. Additional findings as above. Thank you for allowing us to participate in the care of your patient. Dictated and Authenticated by: Laz Sanchez MD 01/27/2019 3:39 AM Central Time ([place] & [place]) FINAL REPORT CT PULMONARY ANGIOGRAM WITH IV CONTRAST AND 3-D POSTPROCESSING: FINDINGS/IMPRESSION: I agree with the preliminary report given by Dr. Laz Sanchez of [facility] Transcribed Date/Time: 01/27/2019 7:51 AM
--- NOTE | 2019-01-27 08:02 | RAD ---
EXAM: CHEST ONE VIEW HISTORY: Shortness of breath. COMPARISON: 01/24/2019 FINDINGS: Cardiac silhouette is magnified by projection. Pulmonary vasculature is at the upper limits of normal . There is a rounded masslike density seen within the medial aspect of the right lung apex. Again noted is increased perihilar interstitial and alveolar opacities with small right pleural effusion pr esent. The left lung appears clear, but the most inferior aspect of the left lateral costophrenic angle is excluded from view. No other interval change. IMPRESSION: 1. Mass right lung apex better visualized on CTA thorax which was obtained after this exam. 2. Persistent right perihilar interstitial and alveolar opacities which could be related to infectiou s process. Follow-up to resolution is recommended. Neoplastic process cannot be entirely excluded.
[2019-01-27] MEDS ORDERED: Loratadine 10 MG TAB PO PRN (08:05)
[2019-01-27] MEDS ORDERED: Loperamide HCl 2 MG CAP PO PRN (08:05)
[2019-01-27] MEDS ORDERED: Ondansetron PF 4 MG/2 ML Vial IVP PRN (08:05)
[2019-01-27] MEDS ORDERED: Acetaminophen 325 MG TAB PO PRN (08:05)
[2019-01-27] MEDS ORDERED: Senokot S 8.6-50 MG TAB PO PRN (08:05)
[2019-01-27] MEDS ORDERED: Nicotine 21 MG PATCH TD PRN (08:05)
[2019-01-27] MEDS ORDERED: Calcium Carbonate 500 MG ChewTAB PO PRN (08:05)
[2019-01-27] MEDS ORDERED: Artificial Tears 18 DROP/0.9 ML EA EYE PRN (08:05)
[2019-01-27] MEDS ORDERED: Ondansetron ODT 4 MG TAB PO PRN (08:05)
[2019-01-27] MEDS ORDERED: hydrALAZINE 20 MG/ML VIAL SLOW IVP PRN (08:05)
[2019-01-27] MEDS ORDERED: Sodium Chloride 0.65% Nasal 44 ML BOT EA NARE PRN (08:05)
[2019-01-27] MEDS ORDERED: Bisacodyl 10 MG SUPP PR PRN (08:05)
[2019-01-27] MEDS ORDERED: Vancomycin HCl 1 GM in Premix Bag 1 BAG IVPB SCH (09:00)
--- NOTE | 2019-01-27 09:32 | CT ---
PRELIMINARY REPORT/[facility]/EMERGENCY AFTER HOURS PROCEDURE: EXAM: CT Neck With Contrast EXAM DATE/TIME: 01/27/2019 2:06 AM CLINICAL HISTORY: 63 years old, male; Dysphagia / difficulty swallowing and dyspnea / difficulty breathing; Patient HX: M63 patient states his throat feels "full. " reports voice changes. PT reports cervical adenopa thy. PT states he smokes cigarettes. PT denies using o2 at home. TECHNIQUE: Imaging protocol: Axial computed tomography images of the neck with intravenous contrast. Coronal and sagittal reformatted images were created and reviewed. COMPARISON: No relevant prior studies available. FINDINGS: Nasopharynx: The adenoid is prominent. Oropharynx: The tonsils are prominent. Hypopharynx: Normal. Larynx: Normal. Normal epiglottis. Retropharyngeal space: Normal. Submandibular/Parotid glands: Normal. Glands are normal in size. Thyroid: Normal. No enlarged or calcified nodules. Lymph nodes: There is a prominent number of small mediastinal lymph nodes. There are multiple small c ervical lymph nodes throughout the neck bilaterally. The lymph nodes demonstrate indistinct boundarie s and low density centers. Cervical lymph nodes measure up to 2.0 x 1.7 cm. Trachea: Visualized trachea is unremarkable. Lungs: There is a right pleural effusion. There are groundglass opacities in the right upper lobe and superior segment of the right lower lobe. There is a 3.4 x 2.5 cm mass in the right lung apex. It ab uts the pleura. Vasculature: There is evidence of atherosclerosis. Bones/joints: There are degenerative changes in the spine. There is sclerosis in all cervical vertebr ae. Soft tissues: Infiltration and nodularity of the anterior mediastinal fat is nonspecific. IMPRESSION: 1. Multiple abnormal-appearing cervical lymph nodes. 2. Prominent adenoid and tonsils. 3. Abnormal findings in the chest evaluated with a chest CT and reported separately. 4. Sclerosis in vertebral bodies. Thank you for allowing us to participate in the care of your patient. Dictated and Authenticated by: Laz Sanchez MD 01/27/2019 3:57 AM Central Time ([place] & [place]) FINAL REPORT BY DR. BERRY EMERGENCY AFTER HOURS STUDY CT NECK SOFT TISSUES WITH CONTRAST: Date: 01/27/19 Time: 0210 hours HISTORY: 63-year-old male with dysphagia and dyspnea, and vocal changes. FINDINGS: Conglomeration of very pathological, enlarged, matted right Level II cervical lymph nodes, with moder ately low density centers and rim enhancement. In aggregate, this large cluster on the right measures approximately 4.5 x 2.5 x 4.5 cm. Each individual lymph node is on the order of 1.0-1.5 cm in size. The margins are somewhat indistinct. On the contralateral left side, additional necrotic left Level II lymph nodes are visualized, smaller in aggregate than on the right. There are additional lymph nodes that are only mildly enlarged, but abnormally round in shape, throug hout the bilateral supraclavicular regions, and at levels 3, 4, and 5. There is diffuse thickening throughout the pharyngeal mucosal space, at the nasopharynx, oropharynx, hypopharynx, and larynx, including true and false vocal cords, such that there is effacement of the l aryngeal ventricles and complete effacement of the bilateral piriform sinuses, with thickening of the aryepiglottic folds, and effacement of the paraglottic fat. Adenoids and palatine tonsils are diffus alex mildly and symmetrically thickened. Epiglottis is thickened. Regarding these findings, this is in disagreement with the preliminary report by [facility]. There is an approximately 3.5 x 3 x 2.5 cm irregularly shaped soft tissue density pulmonary mass at t he apical segment of the right upper lobe, abutting the medial apical pleural surface. There is a rig ht pleural effusion that almost reaches the right apex. There is also diffuse fat stranding throughout the visceral space, such that the boundaries of the th yroid gland are difficult to distinguish from adjacent soft tissues. There is diffuse mild edema in t he deep soft tissues. Maxillary, sphenoid, and ethmoid sinuses, and bilateral mastoid and middle ear cavities, are grossly clear. IMPRESSION: 1. Evidence for right upper lobe primary lung cancer. 2. Evidence for pathological, highly abnormal bilateral cervical lymphadenopathy diffusely, but maryan cially conglomeration of numerous lymph nodes at Level II on the right, highly suspicious for maligna nt, metastatic lymphadenopathy. 3. Evidence for diffuse, inflammatory or infectious process throughout the pharyngeal mucosal space, especially of the larynx and hypopharynx (suggestive of laryngitis), and hyperplasia of Waldeyer's r ing. 4. Right pleural effusion. POS: TPC
[2019-01-27] MEDS: Famotidine/PF 20 mg/2ml Vial SLOW IVP SCH ×2 (09:42→20:08)
[2019-01-27] MEDS: Enoxaparin Sodium 40 MG/0.4 ML SYRINGE SC SCH (09:53)
[2019-01-27] MEDS: Piperacillin/Tazobactam 4.5 GM in Sodium Chloride 0.9% 100 ML IVPB SCH ×3 (09:53→21:11)
[2019-01-27] MEDS: Famotidine 20 MG TAB PO SCH ×2 (09:53→20:08)
[2019-01-27] MEDS: Saccharomyces boulardii 250 MG CAP PO SCH (09:53)
[2019-01-27 12:09] LABS: Bacteria/HPF None Seen HPF (None Seen); Bilirubin Negative (Negative); Blood, Urine Negative (Negative); Clarity Clear (Clear); Glucose, Urine (Dipstick) 70 mg/dL (Negative); Leukocyte Negative Leu/uL (Negative); Nitrite Negative (Negative); Protein, Urine (Dipstick) 10 mg/dL (Neg-Trace); RBC/HPF 0-3 HPF (0-3); Squamous Epithelial None Seen HPF (0-3); Urobilinogen Normal mg/dL (Less than 2); WBC/HPF 0-3 HPF (0-3)
--- NOTE | 2019-01-27 12:45 | CON ---
DATE OF CONSULTATION: HISTORY OF PRESENT ILLNESS: Eddie Jennings is a 63-year-old gentleman, who came to the hospital last night with shortness of breath, with chest pain on the left side, coughing and wheezing. He is still smoking about half a pack a day. His throat was feeling full. Additionally, he has noticed some supraclavicular adenopathy, which he says has been there for almost several weeks. He was recently in the hospital with myocardial infarction on the for evaluation of cough. It was unclear exactly what transpired, but he had an x-ray taken on the , which showed evidence of a right hilar mass-like density and a small pleural effusion. His x-ray now shows the similar findings. A CAT scan was done. He had an echocardiogram done during his last cardiac catheterization, which showed his EF was normal. He denied any wheezing, orthopnea, or any weight loss. PAST MEDICAL HISTORY: Pertinent for substance abuse, coronary artery disease, and hypertension. PAST SURGICAL HISTORY: Right arm drainage, recent stent insertion. HOME MEDICATIONS: Include; 1. Catapres 0.1. 2. Nitrostat. 3. Lopressor 12.5 b.i.d. 4. Lisinopril 10. 5. Pepcid 20. 6. Plavix 75. 7. Lipitor 80. 8. Aspirin 81. 9. Amlodipine 10. He now was started on steroids and neb treatments. SOCIAL AND FAMILY HISTORY: Otherwise, unremarkable. ALLERGIES: NO ALLERGIES. SOCIAL HISTORY: Tobacco, as noted. Substance abuse, he said he has quit. REVIEW OF SYSTEMS: Otherwise, ten-point negative. PHYSICAL EXAMINATION: VITAL SIGNS: On examination, saturations are 95% on 2 L, respirations 18, temperature 97, pulse 76, and blood pressure 140/93. EXTREMITIES: Finger clubbing. CHEST: Reveals decreased breath sounds in right lung. No wheezing. No crackles. CARDIAC: Normal S1 and S2. No gallop. ABDOMEN: Soft. LYMPHATICS: He has bilateral supraclavicular adenopathy. LABORATORY DATA: Shows white count 9000, H and H are unremarkable, and platelet count is normal. Creatinine 1.35. IMPRESSION: 1. Right upper lung mass, right hilar adenopathy, right pleural effusion, supraclavicular adenopathy is suggestive of metastatic disease. 2. Former smoker. 3. Previous substance abuse. 4. Renal failure. 5. Coronary artery disease. PLAN: The lesion in the right upper lung is not accessible via bronch. His pleural effusion at this stage is not large enough to be tapped. Awaiting input from Cardiology to see when his Plavix can be discontinued. He probably needs a supraclavicular lymph node biopsy. This may give a diagnosis regarding the right upper lung mass. Otherwise, agree with steroids and neb treatments. We will notify Dr. Jean, who has seen him in the past. Consultation note, 70 minutes, 50% direct patient care. Job ID: [id number]
[2019-01-27] MEDS: Diabetic Tussin 200 MG/10 ML UDCUP PO PRN ×3 (12:48→23:12)
[2019-01-27] MEDS: methylPREDNISolone Sod Succ 40 MG VIAL IVP SCH ×2 (13:57→21:10)
--- NOTE | 2019-01-27 16:12 | HP ---
PRIMARY CARE PHYSICIAN: [facility]. REASON FOR ADMISSION: New diagnosis of lung cancer, possible pneumonia. HISTORY OF PRESENT ILLNESS: A 63-year-old male, who has previous history of hypertension, coronary artery disease, as well as smoking history, who presented to emergency room with complaint of shortness of breath. The patient has symptoms for about 1 to 2 weeks. He is experiencing gradual increasing shortness of breath. His voice was also changed. He was feeling gurgling sound in his throat. He experienced chest pain today. He was coughing with a scant amount of sputum. He denies any weight loss. He denies any pleurisy. He denies any fever or chills. He denies any hemoptysis, lower extremity edema, orthopnea, or PND. This patient was evaluated in the emergency room and he had CT angiography for elevated D-dimer, which showed no evidence of pulmonary embolism, but the patient was found with pleural and pericardial effusion as well as right upper lobe mass and there was a perihilar consolidation on the right side as well as a hilar lymphadenopathy. The patient was admitted to medical floor. The patient was requiring oxygen to keep saturation normal. Normally, he does not use any oxygen at home. He denies any headache. REVIEW OF SYSTEMS: CONSTITUTIONAL: Negative for weight loss or gain, ability to conduct usual activities. SKIN: Negative for rash, itching. EYES: Negative for double vision, pain. ENT/MOUTH: Negative for nose bleeding, neck stiffness, pain, tenderness. CARDIOVASCULAR: Negative for palpitations, dyspnea on exertion, orthopnea. RESPIRATORY: Negative for shortness of breath, wheezing, cough, hemoptysis, fever or night sweats. GASTROINTESTINAL: Negative for poor appetite, abdominal pain, heartburn, nausea, vomiting, constipation, or diarrhea. GENITOURINARY: Negative for urgency, frequency, dysuria, nocturia. MUSCULOSKELETAL: Negative for pain, swelling. NEUROLOGIC/PSYCHIATRIC: Negative for anxiety, depression. ALLERGY/IMMUNOLOGIC: Negative for skin rash, bleeding tendency. Please see my HPI for pertinent positives and negatives. All other review of systems reviewed and negative except as mentioned in HPI. PAST MEDICAL HISTORY: Coronary artery disease with history of ME, hypertension, dyslipidemia, tobacco abuse disorder. PAST SURGICAL HISTORY: Cardiac catheterization, right arm surgery, right foot surgery. PAST PSYCHIATRIC HISTORY: Reviewed and negative. SOCIAL HISTORY: The patient is drinking about 25 ounce can every day. He smokes 3 to 4 cigarettes every day since age of 17. He is and lives at home with his . No history of ongoing drug abuse, but he has previous history of cocaine abuse. FAMILY HISTORY: No strong family history of premature coronary artery disease, stroke, or cancer. ALLERGIES: NO KNOWN DRUG ALLERGIES. CURRENT HOME MEDICATIONS: 1. Nitroglycerin 0.4 mg sublingual p.r.n. 2. Amlodipine 10 mg daily. 3. Aspirin 81 mg daily. 4. Lipitor 80 mg p.o. q.h.s. 5. Clonidine 0.1 mg b.i.d. 6. Plavix 75 mg p.o. daily. 7. Lisinopril 10 mg daily. 8. Metoprolol 12.5 mg twice daily. EMERGENCY ROOM COURSE: The patient has received racepinephrine, azithromycin, Rocephin, aspirin, and Decadron. PHYSICAL EXAMINATION: VITAL SIGNS: On arrival, blood pressure 152/108, pulse 96, respiratory rate 22, temperature 97.7, saturation 89% on room air, weight 102.06 kg. GENERAL: The patient is currently alert, awake, follows commands. No obvious acute distress. HEENT: Head; normocephalic, atraumatic. Eyes; pupils round, reactive to light. Extraocular muscle intact. ENT; oropharynx within normal limits. Moist mucous membranes. No oral lesion. No pharyngeal erythema. No exudate. NECK: Supple. LYMPHATIC: The patient does have palpable lymph nodes in the supraclavicular area. LUNGS: Bilateral coarse breath sound with rhonchi and rales. CARDIAC: S1 and S2 appears regular without any murmur. ABDOMEN: Obesity present. Bowel sounds present. Nontender. Nondistended. No organomegaly. No mass. No suprapubic tenderness. BACK: Unremarkable. No CVA tenderness. EXTREMITIES: Upper extremity, the patient does feel subjectively intermittent tingling and numbness on the right upper extremity with pain. The patient also experiencing pain in his shoulder on the right side. Lower extremity, no edema. Good distal pulsation. No calf tenderness. SKIN: No skin rash. HEMATOLOGIC: No lymphadenopathy. PSYCHIATRIC: Normal affect. NEUROLOGIC: Nonfocal examination. SIGNIFICANT LABORATORY DATA: As mentioned above. CT angiography showing no evidence of pulmonary embolism. Pleural and pericardial effusion, right upper lobe lung mass, right perihilar consolidation, right hilar lymphadenopathy. Nonobstructive right renal calculi. Sclerosis in multiple vertebral bodies and right scapula. CT soft tissue neck reported as multiple cervical lymph nodes, prominent adenoid and tonsil, sclerosis of vertebral body. Chest x-ray showing mass in the right upper apex and lymphadenopathy. CBC: WBC 9.6, hemoglobin 14.3 platelets 233. D-dimer 1.76. Sodium 138, potassium 4.1, chloride 106, carbon dioxide 23, BUN 41, creatinine 1.35, glucose 149, calcium 8.9. LFT: AST 33, ALT 31, alkaline phosphatase 148, and albumin 3.4. Troponin negative. BNP 76.9. Lactic acid 1.7. Urinalysis normal. Echocardiography done and showed moderate pericardial effusion. ASSESSMENT AND PLAN: 1. Likely new onset lung cancer with metastasis. This patient has lung mass in the right apex and the patient is also experiencing some Pancoast tumor symptoms. He does not have any superior vena cava syndrome, but his right upper extremity symptoms concerning with Pancoast tumor. He does have some vertebral and scapular lesions and suspected for bone metastasis. He already has pleural and pericardial effusion as well as supraclavicular lymphadenopathy. In this way, the patient has advanced metastatic lung cancer. He will need diagnosis and that is why we are consulting [employer]. He will need radiological guidance lymph node biopsy and Oncology will be consulted. We will obtain echocardiography. Further decision will defer to a specialist, oncologist, and [employer]. Further investigation, we will also defer to them. 2. Pneumonia suspected. The patient has hilar consolidation, most likely postobstructive versus neoplasm. The patient does not have any classic history of pneumonia with infectious etiology, but for benefit of doubt, we will treat with vancomycin and Zosyn. We will also prescribe Solu-Medrol 20 mg IV q.8 hourly and we will treat with DuoNeb therapy. 3. Tobacco abuse disorder. Smoking cessation counseling given. We will offer nicotine patch if needed. 4. Coronary artery disease. We will continue aspirin 81 mg p.o. daily, Lipitor 80 mg p.o. q.h.s., Plavix 75 mg p.o. daily, metoprolol 12.5 mg twice daily, lisinopril 10 mg p.o. daily, nitroglycerin p.r.n. basis, amlodipine 10 mg p.o. daily. 5. Hypertension. We will use clonidine only p.r.n. basis, but we will continue amlodipine and lisinopril if blood pressure permits. 6. Dyslipidemia. We will continue Lipitor 80 mg p.o. q.h.s. 7. Chronic kidney disease, stage 2. We will monitor renal function. 8. Pleural and pericardial effusion. We did echocardiography. The patient does not have any clinical tamponade symptoms at this point, but we will closely monitor while in hospital. 9. DVT prophylaxis. Lovenox 40 mg subcutaneous daily. 10. GI prophylaxis. Pepcid 20 mg p.o. or IV b.i.d. 11. Acute respiratory failure with hypoxia. We will monitor the patient's oxygen saturation while in the hospital and currently, we will continue the oxygen to keep saturation above 92%. CODE STATUS: The patient is full code. DISPOSITION PLAN: Based on clinical course, we are expecting the patient's stay in hospital more than 2 midnights. Job ID: [id number]
--- NOTE | 2019-01-27 16:44 | CON ---
DATE OF CONSULTATION: REASON FOR CONSULTATION: Likely metastatic cancer. HISTORY OF PRESENT ILLNESS: A 63-year-old male presenting to the hospital with worsening shortness of breath, coughing, and left-sided chest pain. According to the history, the patient was recently admitted to the hospital for evaluation of chest pain on January 24, 2019. He was then sent home and has now come back. He complains of cough for the past 8 or 9 years that has been worsening over the last 2 months along with worsening shortness of breath and gets very winded walking only a few feet. He also complains of swollen glands and lymph nodes in his neck, which has caused him dysphasia and continued to affect his breathing as well and cause voice changes. The patient is a pack and half daily smoker for the last 40+ years and is currently decreased to 4 or 5 cigarettes per day. He also drinks 25 ounce can of beer every other day. He denies any fevers, night sweats, weight loss, poor appetite, nausea, vomiting, or diarrhea. CT of the neck and chest show a 3.5 x 3 x 2.5 cm mass at the apical segment of the right upper lobe along with bilateral cervical lymphadenopathy mostly at level two on the right lung with supraclavicular lymphadenopathy and diffuse inflammatory infectious process throughout the pharyngeal mucosal space suspicious for larynx, hypopharynx, hyperplasia Waldeyer's ring, and right pleural effusion. REVIEW OF SYSTEMS: Ten-point review of systems negative except as per HPI. PAST MEDICAL HISTORY: Coronary artery disease, hypertension, tobacco abuse. PAST SURGICAL HISTORY: Right arm drainage, recent PCI. SOCIAL HISTORY: Polysubstance abuse. One and half packs per day times 40+ years, currently 4 cigarettes a day and 25-ounce beer every other day. CURRENT MEDICATIONS: Reviewed. PHYSICAL EXAMINATION: VITAL SIGNS: Temperature 98, pulse 89, respirations 20, saturating 98% on 3 L by nasal cannula, and blood pressure 139/88. GENERAL APPEARANCE: The patient is lying in bed, in no acute distress. HEENT: Normocephalic and atraumatic. CARDIOVASCULAR: S1 and S2. Regular rate and rhythm. RESPIRATIONS: Clear to auscultation bilaterally. ABDOMEN: Soft, nondistended, nontender. LYMPHATICS: Bilateral cervical and supraclavicular adenopathy. NEUROLOGIC: Cranial nerves 2 through 12 grossly intact and otherwise nonfocal. PSYCHIATRIC: Awake, alert, and oriented x3. LABORATORY DATA: White blood cells 9.6, hemoglobin 14.3, platelets 33. D-dimer 1.76, BUN 41, creatinine 1.35, glucose 149, troponin 0.018. BNP 76.9, lactic acid 1.7, calcium 8.9. IMAGING DATA: CT of the neck and CT chest showed 3.5 x 3 x 2.5 cm irregular-shaped pulmonary mass at the apical segment of the right upper lobe abutting the medial apical pleural surface and a right pleural effusion. In addition had a known bilateral cervical lymphadenopathy, especially at the level 2 on the right and supraclavicular adenopathy as well as diffuse inflammatory infectious process throughout the pharyngeal mucosal spaces suspicious for larynx, hypopharynx with hyperplasia Waldeyer's ring. ASSESSMENT AND PLAN: A 63-year-old male with tobacco use, worsening shortness of breath, cough, and cervical and supraclavicular lymphadenopathy with a right lung mass. The patient is currently on oxygen and has had an echocardiogram which shows moderate pericardial effusion, but no tamponade physiology. His bone mass is likely a primary lung cancer and they may not have a primary cancer of the head, neck area or this could be related or unrelated. He has easily palpable cervical or supraclavicular lymphadenopathy, and I have asked Dr. Farnsworth to get a core biopsy of one of these nodes for diagnosis. We will continue to follow this patient peripherally until we have pathology results at which time we can come up with a further plan which will likely include a PET scan and potential chemoimmunotherapy. Please call with questions. Job ID: [id number]
[2019-01-27] MEDS: Atorvastatin Calcium 40 MG TAB PO SCH (20:07)
[2019-01-27] MEDS: Metoprolol Tartrate 25 MG TAB PO SCH (20:07)
[2019-01-27] MEDS: Amlodipine 10 MG TAB PO SCH (20:08)
[2019-01-27] MEDS: Zolpidem Tartrate 5 MG TAB PO PRN (20:09)
[2019-01-28] MEDS: Diabetic Tussin 200 MG/10 ML UDCUP PO PRN ×3 (04:54→14:21)
[2019-01-28] MEDS: methylPREDNISolone Sod Succ 40 MG VIAL IVP SCH ×2 (05:00→21:54)
[2019-01-28] MEDS: Piperacillin/Tazobactam 4.5 GM in Sodium Chloride 0.9% 100 ML IVPB SCH ×3 (05:00→21:54)
[2019-01-28 07:10] LABS: #Lymphocytes 1.5 thou/uL (1.20-3.40); #Monocytes 1.1 thou/uL (0.11-0.59); #Neutrophils 11.8 thou/uL (1.40-6.50); %Basophils 0.2 % (0.0-1.0); %Eosinophils 0.1 % (0.0-10.0); %Lymphocytes 10.3 % (21.0-51.0); %Monocytes 7.8 % (0.0-10.0); %Neutrophils 81.6 % (42.0-75.0); Hemoglobin 14.2 g/dL (14.0-18.0); Mean Corpuscular HGB CONC 31.8 g/dL (32.0-36.0); Mean Corpuscular Hemoglobin 28.1 pg (27.0-31.0); Mean Corpuscular Volume 88.4 fL (78.0-98.0); Mean Platelet Volume 8.3 fL (7.4-10.4); Platelet Count 246 thou/uL (130-400); RBC Distribution Width 13.4 % (11.5-14.5); Red Blood Cell (RBC) Count 5.07 mill/uL (4.70-6.10); White Blood Cell (WBC) Count 14.4 thou/uL (4.8-10.8)
[2019-01-28 07:31] LABS: ALT (SGPT) 27 U/L (8-55); AST (SGOT) 23 U/L (5-34); Albumin 3.4 g/dL (3.4-4.8); Alkaline Phosphatase 116 U/L (40-150); Anion Gap 13 mmol/L (10-20); BUN (Urea Nitrogen) 23 mg/dL (8.4-25.7); Bilirubin, Total 0.4 mg/dL (0.2-1.2); Calc. Creatinine Clearance 108 mL/min (70-130); Calcium 9.3 mg/dL (7.8-10.44); Carbon Dioxide 24 mmol/L (23-31); Chloride 107 mmol/L (98-107); Estimated GFR-MDRD Greater than 90; Glucose 142 mg/dL (80-115); Potassium 4.6 mmol/L (3.5-5.1); Protein, Total 7.4 g/dL (5.8-8.1); Sodium 139 mmol/L (136-145)
[2019-01-28] MEDS: Clopidogrel Bisulfate 75 MG TAB PO SCH (09:42)
[2019-01-28] MEDS: Aspirin 81 mg Enteric Coated Tablet PO SCH (09:42)
[2019-01-28] MEDS: Saccharomyces boulardii 250 MG CAP PO SCH (09:42)
[2019-01-28] MEDS: Metoprolol Tartrate 25 MG TAB PO SCH ×2 (09:42→21:54)
[2019-01-28] MEDS: Famotidine 20 MG TAB PO SCH ×2 (09:43→21:54)
[2019-01-28] MEDS: Famotidine/PF 20 mg/2ml Vial SLOW IVP SCH ×2 (09:43→21:55)
[2019-01-28] MEDS: Lisinopril 10 MG TAB PO SCH (09:43)
[2019-01-28] MEDS: Enoxaparin Sodium 40 MG/0.4 ML SYRINGE SC SCH (09:43)
--- NOTE | 2019-01-28 11:18 | PRG ---
DATE OF SERVICE: 01/28/2019 SUBJECTIVE: Eddie Jennings this morning, is coughing and short of breath. He had a right supraclavicular lymph node removed yesterday by surgery. Awaiting final path. OBJECTIVE: VITAL SIGNS: Saturations 96% on 2 L, blood pressure 180/80, temperature 97, pulse 93. CHEST: Extensive rhonchi and crackles. CARDIAC: . IMPRESSION: Metastatic lung cancer, chronic obstructive pulmonary disease, congestive heart failure, coronary artery disease. PLAN: Continue present treatment. Continue steroids. We will follow. Await path. Job ID: [id number]
--- NOTE | 2019-01-28 14:37 | PDOC.HOSPP ---
- Subjective Subjective: Pt seen for followup re: lung mass. Reports dry cough, did not sleep well. - Objective Vital Signs & Weight: Vital Signs (12 hours) Temp Pulse Resp BP BP Pulse Ox 01/28/19 13:55 162/97 H 01/28/19 12:07 81 172/99 H 01/28/19 12:00 98.0 F 81 20 172/99 H 96 01/28/19 10:20 93 16 96 01/28/19 09:43 189/103 H 01/28/19 08:00 97.5 F L 93 24 H 189/103 H 96 01/28/19 06:22 89 16 98 01/28/19 04:00 97.6 F 88 20 169/97 H 96 Weight Weight 212 lb I&O: 01/27/19 01/28/19 01/29/19 06:59 06:59 06:59 Intake Total 1960 300 Output Total 701 Balance 1259 300 Result Diagrams: 01/28/19 06:42 01/28/19 06:42 Additional Labs: Labs and MARs reviewed by me ROS - Review of Systems All systems: All other ROS were reviewed and found negative. Constitutional: denies: fever, chills, sweats, weakness, malaise Respiratory: reports: cough, dry. denies: shortness of breath, hemoptysis, SOB with excertion, pleuritic pain, sputum, wheezing Cardiovascular: denies: chest pain, palpitations, orthopnea, paroxysmal noc. dyspnea, edema, light headedness Gastrointestinal: denies: nausea, vomitting, abdominal pain, diarrhea, constipation, melena, hematochezia Genitourinary: reports: other. denies: dysuria, frequency, incontinence, hematuria, retention - Medication Medications: Active Medications Generic Name Dose Route Start Last Admin Trade Name Freq PRN Reason Stop Dose Admin Albuterol/Ipratropium 3 ml 01/27/19 06:30 01/28/19 10:20 Duoneb NEB 3 ml [id number] FLOR Administration Amlodipine Besylate 10 mg 01/27/19 21:00 01/27/19 20:08 Norvasc PO 10 mg QPM FLOR Administration Aspirin 81 mg 01/28/19 09:00 01/28/19 09:42 Ecotrin PO 81 mg DAILY FLOR Administration Atorvastatin Calcium 80 mg 01/27/19 21:00 01/27/19 20:07 Lipitor PO 80 mg HS FLOR Administration Clopidogrel Bisulfate 75 mg 01/28/19 09:00 01/28/19 09:42 Plavix PO 75 mg DAILY FLOR Administration Enoxaparin Sodium 40 mg 01/27/19 09:00 01/28/19 09:43 Lovenox SC 40 mg 0900 FLOR Administration Famotidine 20 mg 01/27/19 09:00 01/28/19 09:43 Pepcid SLOW IVP Not Given Q12HR [facility] Famotidine 20 mg 01/27/19 09:00 01/28/19 09:43 Pepcid PO 20 mg BID FLOR Administration Guaifenesin 200 mg 01/27/19 08:05 01/28/19 14:21 Robitussin Sf PO 200 mg Q4H PRN Administration Cough Hydralazine HCl 10 mg 01/27/19 08:05 01/28/19 12:07 Apresoline SLOW IVP 10 mg Q4H PRN Administration SBP > 180 and HR < 70 Piperacillin Sod/Tazobactam 100 mls @ 200 mls/hr 01/27/19 06:00 01/28/19 14: 21 Sod 4.5 gm/ Sodium Chloride IVPB 100 mls Q8HR [facility] Administration Lisinopril 10 mg 01/28/19 09:00 01/28/19 09:43 Zestril PO 10 mg DAILY [facility] Administration Metoprolol Tartrate 12.5 mg 01/27/19 21:00 01/28/19 09:42 Lopressor PO 12.5 mg BID [facility] Administration Nicotine 21 mg 01/27/19 08:05 01/27/19 12:48 Nicoderm Patch TD 21 mg Q24H PRN Administration Smoking Cessation Saccharomyces Boulardii 250 mg 01/27/19 09:00 01/28/19 09:42 Florastor PO 250 mg DAILY [facility] Administration Zolpidem Tartrate 5 mg 01/27/19 08:05 01/27/19 20:09 Ambien PO 5 mg HSPRN PRN Administration Insomnia - Exam NAD Neck: supple, symmetric, no JVD, no Thyromegaly (cervical lymphadenopathy) Heart: RRR, no murmur, no rubs, normal peripheral pulses Respiratory: CTAB, no wheezes, no rales, no ronchi, normal chest expansion Gastrointestinal: soft, non-tender, non-distended, normal bowel sounds Extremities: no cyanosis Skin: normal turgor Neurological: CN's grossly intact Psychiatric: normal affect, normal behavior, A&O x 3 Hosp A/P (1) Lung mass Code(s): R91.8 - OTHER NONSPECIFIC ABNORMAL FINDING OF LUNG FIELD Status: Acute (2) Pneumonia Code(s): J18.9 - PNEUMONIA, UNSPECIFIED ORGANISM Status: Acute (3) Pericardial effusion Code(s): I31.3 - PERICARDIAL EFFUSION (NONINFLAMMATORY) Status: Acute (4) Hypertension Code(s): I10 - ESSENTIAL (PRIMARY) HYPERTENSION Status: Chronic (5) Tobacco abuse Code(s): Z72.0 - TOBACCO USE Status: Chronic (6) NATHAN (acute kidney injury) Code(s): N17.9 - ACUTE KIDNEY FAILURE, UNSPECIFIED Status: Resolved - Plan respiratory therapy, out of bed/ambulate, DVT proph w/lovenox Continue Zosyn, bronchodilators and steroids. s/p biposy of lymph node, await path report. Continue nicotine patch. Blood pressure is high, increase Lopressor to 25 mg PO BID. No evidence of cardiac tamponade. Discussed with CV surgery, they will intervene if pt's hemodynamics change or if the lymph node biopsy does not reveal malignancy.
[2019-01-28] MEDS: Cepastat Lozenges 1 LOZ PO PRN ×2 (16:33→21:59)
[2019-01-28] MEDS: Mometasone/Formoterol 120 PUFF INHALER INH SCH (18:36)
[2019-01-28] MEDS: Amlodipine 10 MG TAB PO SCH (21:54)
[2019-01-28] MEDS: Atorvastatin Calcium 40 MG TAB PO SCH (21:54)
[2019-01-29] MEDS: Piperacillin/Tazobactam 4.5 GM in Sodium Chloride 0.9% 100 ML IVPB SCH ×3 (06:28→22:32)
[2019-01-29] MEDS: Mometasone/Formoterol 120 PUFF INHALER INH SCH ×2 (06:56→19:09)
[2019-01-29] MEDS ORDERED: guaiFENesin ER 600 MG TAB PO SCH (10:00)
[2019-01-29] MEDS: Saccharomyces boulardii 250 MG CAP PO SCH (10:02)
[2019-01-29] MEDS: Lisinopril 10 MG TAB PO SCH (10:03)
[2019-01-29] MEDS: Famotidine 20 MG TAB PO SCH ×2 (10:03→22:07)
[2019-01-29] MEDS: Clopidogrel Bisulfate 75 MG TAB PO SCH (10:03)
[2019-01-29] MEDS: Aspirin 81 mg Enteric Coated Tablet PO SCH (10:03)
[2019-01-29] MEDS: Sodium Chloride 0.9% 10 ML ONE ×2 (10:04→14:03)
[2019-01-29] MEDS: Enoxaparin Sodium 40 MG/0.4 ML SYRINGE SC SCH (10:04)
[2019-01-29] MEDS: Metoprolol Tartrate 25 MG TAB PO SCH ×2 (10:04→22:07)
[2019-01-29] MEDS: methylPREDNISolone Sod Succ 40 MG VIAL IVP SCH ×2 (10:04→22:11)
[2019-01-29] MEDS: Famotidine/PF 20 mg/2ml Vial SLOW IVP SCH ×2 (10:05→22:15)
[2019-01-29] MEDS: Diabetic Tussin 200 MG/10 ML UDCUP PO PRN ×2 (10:13→17:43)
--- NOTE | 2019-01-29 11:08 | PRG ---
DATE OF SERVICE: 01/29/2019 SUBJECTIVE: This morning, he is awake, alert, responsive, having some pain, shortness of breath. OBJECTIVE: VITAL SIGNS: 151/85 blood pressure, pulse 90, and respiratory rate 18, sats 91% on 1 L. CHEST: Decreased breath sounds. No wheezing. CARDIAC: Normal S1, S2. No gallops. ABDOMEN: No masses. ASSESSMENT: Metastatic cancer, probably lung, pericardial effusion, pleural effusion, coronary artery disease, previous substance abuse. PLAN: Pulmonary estrada, await reports of the path. Continue neb treatments, supportive care. Job ID: [id number]
--- NOTE | 2019-01-29 11:29 | PDOC.HOSPP ---
- Subjective Subjective: Pt seen for followup re: lung mass. Cough+, no sputum. - Objective Vital Signs & Weight: Vital Signs (12 hours) Temp Pulse Resp BP BP Pulse Ox 01/29/19 10:03 151/85 H 01/29/19 10:01 90 20 98 01/29/19 06:59 88 20 98 01/29/19 06:56 88 20 98 01/29/19 06:28 97.6 F 70 20 181/94 H 95 01/29/19 02:34 95 20 98 Weight Weight 221 lb 5 oz I&O: 01/28/19 01/29/19 01/30/19 06:59 06:59 06:59 Intake Total 1960 1220 Output Total 701 125 Balance 1259 1095 Result Diagrams: 01/28/19 06:42 01/28/19 06:42 Additional Labs: Labs and MARs reviewed by me EKG Reviewed by me: Yes (Tele: NSR) ROS - Review of Systems All systems: All other ROS were reviewed and found negative. Constitutional: denies: fever, chills, sweats, weakness, malaise Respiratory: reports: cough, dry. denies: shortness of breath, hemoptysis, SOB with excertion, pleuritic pain, sputum, wheezing Cardiovascular: denies: chest pain, palpitations, orthopnea, paroxysmal noc. dyspnea, edema - Medication Medications: Active Medications Generic Name Dose Route Start Last Admin Trade Name Freq PRN Reason Stop Dose Admin Acetaminophen 650 mg 01/27/19 08:05 01/28/19 21:59 Tylenol PO 650 mg Q4H PRN Administration Headache/Fever/Mild Pain (1-3) Albuterol/Ipratropium 3 ml 01/27/19 06:30 01/29/19 10:01 Duoneb NEB 3 ml [id number] FLOR Administration Amlodipine Besylate 10 mg 01/27/19 21:00 01/28/19 21:54 Norvasc PO 10 mg QPM FLOR Administration Aspirin 81 mg 01/28/19 09:00 01/29/19 10:03 Ecotrin PO 81 mg DAILY [facility] Administration Atorvastatin Calcium 80 mg 01/27/19 21:00 01/28/19 21:54 Lipitor PO 80 mg HS FLOR Administration Clopidogrel Bisulfate 75 mg 01/28/19 09:00 01/29/19 10:03 Plavix PO 75 mg DAILY [facility] Administration Enoxaparin Sodium 40 mg 01/27/19 09:00 01/29/19 10:04 Lovenox SC 40 mg 0900 [facility] Administration Famotidine 20 mg 01/27/19 09:00 01/29/19 10:05 Pepcid SLOW IVP Not Given Q12HR [facility] Famotidine 20 mg 01/27/19 09:00 01/29/19 10:03 Pepcid PO 20 mg BID [facility] Administration Guaifenesin 200 mg 01/27/19 08:05 01/29/19 10:13 Robitussin Sf PO 200 mg Q4H PRN Administration Cough Guaifenesin 600 mg 01/29/19 10:00 01/29/19 10:14 Mucinex PO 01/29/19 12:00 600 mg 1000 FLOR Administration Hydralazine HCl 10 mg 01/27/19 08:05 01/28/19 12:07 Apresoline SLOW IVP 10 mg Q4H PRN Administration SBP > 180 and HR < 70 Piperacillin Sod/Tazobactam 100 mls @ 200 mls/hr 01/27/19 06:00 01/29/19 06: 28 Sod 4.5 gm/ Sodium Chloride IVPB 100 mls Q8HR [facility] Administration Lisinopril 10 mg 01/28/19 09:00 01/29/19 10:03 Zestril PO 10 mg DAILY [facility] Administration Methylprednisolone Sodium Succinate 40 mg 01/28/19 21:00 01/29/19 10:04 Solu-Medrol IVP 40 mg BID [facility] Administration Metoprolol Tartrate 25 mg 01/28/19 21:00 01/29/19 10:04 Lopressor PO 25 mg BID [facility] Administration Mometasone Furoate/Formoterol Fumar 2 puff 01/28/19 18:30 01/29/19 06:56 Dulera 200 Mcg/5 Mcg Inhaler INH 2 puff BID-RT [facility] Administration Nicotine 21 mg 01/27/19 08:05 01/27/19 12:48 Nicoderm Patch TD 21 mg Q24H PRN Administration Smoking Cessation Saccharomyces Boulardii 250 mg 01/27/19 09:00 01/29/19 10:02 Florastor PO 250 mg DAILY [facility] Administration Throat Lozenges 1 tayo 01/27/19 08:05 01/28/19 21:59 Cepastat Lozenges PO 1 tayo Q2H PRN Administration Sore Throat Zolpidem Tartrate 5 mg 01/27/19 08:05 01/27/19 20:09 Ambien PO 5 mg HSPRN PRN Administration Insomnia - Exam NAD Eye: PERRL ENT: no oropharyngeal lesions Neck: supple Heart: RRR Respiratory: CTAB Gastrointestinal: soft Skin: normal turgor Psychiatric: normal affect Hosp A/P (1) Lung mass Code(s): R91.8 - OTHER NONSPECIFIC ABNORMAL FINDING OF LUNG FIELD Status: Acute (2) Pneumonia Code(s): J18.9 - PNEUMONIA, UNSPECIFIED ORGANISM Status: Acute (3) Pericardial effusion Code(s): I31.3 - PERICARDIAL EFFUSION (NONINFLAMMATORY) Status: Acute (4) Hypertension Code(s): I10 - ESSENTIAL (PRIMARY) HYPERTENSION Status: Chronic (5) Tobacco abuse Code(s): Z72.0 - TOBACCO USE Status: Chronic (6) NATHAN (acute kidney injury) Code(s): N17.9 - ACUTE KIDNEY FAILURE, UNSPECIFIED Status: Resolved - Plan plan discussed w/ family, continue antibiotics, respiratory therapy, DVT proph w /lovenox Continue IV Zosyn. Ambulate patient. Await path report of lymph node. Add Mucinex. Continue nicotine patch.
--- NOTE | 2019-01-29 16:43 | CON ---
DATE OF CONSULTATION: HISTORY OF PRESENT ILLNESS: Mr. Jennings is a 63-year-old gentleman, who presented to the emergency department with shortness of breath and chest pain on the left side, coughing, wheezing. He has a history of a right hilar mass and small pleural effusion. He also has a right upper lobe lesion. He had a supraclavicular node, was biopsied by Dr. Farnsworth for diagnostic purposes. I was asked to see him for treatment options for pericardial effusion, which he is currently asymptomatic from. He has had an echocardiogram performed, which shows no tamponade physiology. The patient hemodynamically has been asymptomatic. PAST MEDICAL HISTORY: 1. Coronary artery disease. 2. Hypertension. 3. Right upper lobe mass concerning for metastatic lung cancer with a supraclavicular node that has been biopsied. PAST SURGICAL HISTORY: Right forearm I and D. MEDICATIONS: noted. ALLERGIES: NONE. SOCIAL HISTORY: He smokes both tobacco and marijuana. PHYSICAL EXAMINATION: GENERAL: This is a well-developed, well-nourished man, resting on the telemetry unit. VITAL SIGNS: Temperature is 97.6, pulse is 80 and regular, blood pressure is 181/94. LUNGS: Clear bilaterally. HEART: Rhythm is regular. ABDOMEN: Soft and nontender. EXTREMITIES: No cyanosis, clubbing, or edema. There is no JVD. ASSESSMENT AND PLAN: Right lower lobe lesion concerning for metastatic lung cancer. He has had a right supraclavicular node biopsy, pathology is pending. Currently, I would wait for the pathology to return from his lymph node. If this gives a diagnosis, then there is no indication for drainage of his pericardial effusion at this point. If he becomes symptomatic, has tamponade physiology on echocardiogram, or if the node is nondiagnostic, then certainly pericardial window can be performed for diagnostic and therapeutic purposes at that time. Job ID: [id number]
[2019-01-29] MEDS: cloNIDine 0.1 MG TAB PO PRN (17:45)
[2019-01-29] MEDS: guaiFENesin ER 600 MG TAB PO SCH (22:07)
[2019-01-29] MEDS: Atorvastatin Calcium 40 MG TAB PO SCH (22:07)
[2019-01-29] MEDS: Amlodipine 10 MG TAB PO SCH (22:08)
[2019-01-30] MEDS ORDERED: Sodium Chloride 0.9% 10 ML ONE (08:27)
[2019-01-30] MEDS: Lisinopril 10 MG TAB PO SCH (08:59)
[2019-01-30] MEDS: Clopidogrel Bisulfate 75 MG TAB PO SCH (08:59)
[2019-01-30] MEDS: Aspirin 81 mg Enteric Coated Tablet PO SCH (08:59)
[2019-01-30] MEDS: guaiFENesin ER 600 MG TAB PO SCH ×2 (08:59→20:24)
[2019-01-30] MEDS: Saccharomyces boulardii 250 MG CAP PO SCH (08:59)
[2019-01-30] MEDS: Enoxaparin Sodium 40 MG/0.4 ML SYRINGE SC SCH (09:00)
[2019-01-30] MEDS: Famotidine 20 MG TAB PO SCH ×2 (09:00→20:25)
[2019-01-30] MEDS: Metoprolol Tartrate 25 MG TAB PO SCH ×2 (09:00→20:25)
[2019-01-30] MEDS: Piperacillin/Tazobactam 4.5 GM in Sodium Chloride 0.9% 100 ML IVPB SCH ×3 (09:00→21:49)
[2019-01-30] MEDS: Famotidine/PF 20 mg/2ml Vial SLOW IVP SCH ×2 (09:01→20:29)
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
[2019-01-30] MEDS: Mometasone/Formoterol 120 PUFF INHALER INH SCH ×2 (10:28→19:26)
[2019-01-30] MEDS ORDERED: guaiFENesin ER 600 MG TAB PO SCH (11:15)
--- NOTE | 2019-01-30 12:15 | OP ---
DATE OF PROCEDURE: 01/27/2019 PREOPERATIVE DIAGNOSES: Lung mass, tobacco abuse, dyspnea, supraclavicular adenopathy, voice change. POSTOPERATIVE DIAGNOSES: Lung mass, tobacco abuse, dyspnea, supraclavicular adenopathy, voice change. PROCEDURE PERFORMED: Biopsy of right supraclavicular lymphadenopathy. ANESTHESIA: 1% Xylocaine with epinephrine. DESCRIPTION OF PROCEDURE: With the patient at bedside in his room, his supraclavicular area, right side, was prepared with alcohol and local anesthetic, 1% Xylocaine with epinephrine mixed with 0.5% Marcaine with epinephrine and bicarbonate infiltrated into the skin and subcutaneous tissue about the operative site. Using the core biopsy gun, three cores were obtained from the supraclavicular mass biopsying this tangentially to avoid injury to the lungs or clavicle or significant vascular soft tissues. Several cores were obtained, placed in formalin, submitted to Pathology. The patient tolerated the procedure well. Band-Aid applied. Job ID: [id number]
[2019-01-30] MEDS: Cepastat Lozenges 1 LOZ PO PRN ×2 (12:57→16:52)
[2019-01-30] MEDS: methylPREDNISolone Sod Succ 40 MG VIAL IVP SCH ×2 (12:57→20:27)
--- NOTE | 2019-01-30 14:25 | OP ---
DATE OF PROCEDURE: 01/30/2019 PREOPERATIVE DIAGNOSES: New lung mass, supraclavicular lymphadenopathy masses bilaterally. POSTOPERATIVE DIAGNOSES: New lung mass, supraclavicular lymphadenopathy masses bilaterally. ANESTHESIA: 1% Xylocaine with epinephrine. DESCRIPTION OF PROCEDURE: With the patient at bedside, using alcohol prep, right supraclavicular area was prepared with alcohol and local anesthetic 1% Xylocaine with epinephrine was infiltrated into the skin and subcutaneous tissue and a core biopsy gun used to biopsy the supraclavicular mass/nodes. Obtained several good cores, submitted to pathology in formalin. The patient tolerated the procedure well without complications. A Band-Aid applied. Job ID: [id number]
--- NOTE | 2019-01-30 15:16 | PDOC.HOSPP ---
- Subjective Subjective: Pt seen for followup re; lung mass. Feels better, coughing up sputum. - Objective Vital Signs & Weight: Vital Signs (12 hours) Temp Pulse Resp BP BP Pulse Ox 01/30/19 15:01 95 12 01/30/19 11:44 97.2 F L 82 16 158/85 H 97 01/30/19 10:28 81 16 01/30/19 10:22 90 L 01/30/19 10:21 81 16 01/30/19 08:59 168/77 H 01/30/19 08:00 97.0 F L 81 16 168/77 H 96 01/30/19 04:00 97.5 F L 80 20 168/91 H 97 Weight Weight 221 lb 5 oz I&O: 01/29/19 01/30/19 01/31/19 06:59 06:59 06:59 Intake Total 1220 1181 Output Total 125 1250 Balance 1095 -69 Result Diagrams: 01/28/19 06:42 01/28/19 06:42 EKG Reviewed by me: Yes (Tele: NSR) ROS - Review of Systems All systems: All other ROS were reviewed and found negative. Respiratory: reports: cough, SOB with excertion, sputum. denies: dry, shortness of breath, hemoptysis, pleuritic pain, wheezing Cardiovascular: denies: chest pain, palpitations, orthopnea, paroxysmal noc. dyspnea, edema, light headedness - Medication Medications: Active Medications Generic Name Dose Route Start Last Admin Trade Name Freq PRN Reason Stop Dose Admin Acetaminophen 650 mg 01/27/19 08:05 01/28/19 21:59 Tylenol PO 650 mg Q4H PRN Administration Headache/Fever/Mild Pain (1-3) Albuterol/Ipratropium 3 ml 01/27/19 06:30 01/30/19 15:01 Duoneb NEB 3 ml [id number] [facility] Administration Amlodipine Besylate 10 mg 01/27/19 21:00 01/29/19 22:08 Norvasc PO 10 mg QPM [facility] Administration Aspirin 81 mg 01/28/19 09:00 01/30/19 08:59 Ecotrin PO 81 mg DAILY [facility] Administration Atorvastatin Calcium 80 mg 01/27/19 21:00 01/29/19 22:07 Lipitor PO 80 mg HS [facility] Administration Clonidine 0.1 mg 01/27/19 08:05 01/29/19 17:45 Catapres PO 0.1 mg Q4H PRN Administration SBP Greater Than 170 Clopidogrel Bisulfate 75 mg 01/28/19 09:00 01/30/19 08:59 Plavix PO 75 mg DAILY [facility] Administration Enoxaparin Sodium 40 mg 01/27/19 09:00 01/30/19 09:00 Lovenox SC 40 mg 0900 [facility]OR Administration Famotidine 20 mg 01/27/19 09:00 01/30/19 09:01 Pepcid SLOW IVP Not Given Q12HR [facility] Famotidine 20 mg 01/27/19 09:00 01/30/19 09:00 Pepcid PO 20 mg BID [facility] Administration Guaifenesin 200 mg 01/27/19 08:05 01/29/19 17:43 Robitussin Sf PO 200 mg Q4H PRN Administration Cough Hydralazine HCl 10 mg 01/27/19 08:05 01/28/19 12:07 Apresoline SLOW IVP 10 mg Q4H PRN Administration SBP > 180 and HR < 70 Piperacillin Sod/Tazobactam 100 mls @ 200 mls/hr 01/27/19 06:00 01/30/19 09: 00 Sod 4.5 gm/ Sodium Chloride IVPB 100 mls Q8HR [facility] Administration Lisinopril 10 mg 01/28/19 09:00 01/30/19 08:59 Zestril PO 10 mg DAILY [facility] Administration Methylprednisolone Sodium Succinate 40 mg 01/28/19 21:00 01/30/19 12:57 Solu-Medrol IVP 40 mg BID [facility] Administration Metoprolol Tartrate 25 mg 01/28/19 21:00 01/30/19 09:00 Lopressor PO 25 mg BID [facility] Administration Mometasone Furoate/Formoterol Fumar 2 puff 01/28/19 18:30 01/30/19 10:28 Dulera 200 Mcg/5 Mcg Inhaler INH 2 puff BID-RT [facility] Administration Nicotine 21 mg 01/27/19 08:05 01/27/19 12:48 Nicoderm Patch TD 21 mg Q24H PRN Administration Smoking Cessation Saccharomyces Boulardii 250 mg 01/27/19 09:00 01/30/19 08:59 Florastor PO 250 mg DAILY [facility] Administration Throat Lozenges 1 tayo 01/27/19 08:05 01/30/19 12:57 Cepastat Lozenges PO 1 tayo Q2H PRN Administration Sore Throat Zolpidem Tartrate 5 mg 01/27/19 08:05 01/27/19 20:09 Ambien PO 5 mg HSPRN PRN Administration Insomnia - Exam NAD Eye: anicteric sclera ENT: normocephalic atraumatic Neck: supple Heart: RRR Respiratory: CTAB Gastrointestinal: soft Extremities: no cyanosis Neurological: CN's grossly intact Psychiatric: normal affect Hosp A/P (1) Lung mass Code(s): R91.8 - OTHER NONSPECIFIC ABNORMAL FINDING OF LUNG FIELD Status: Acute (2) Pneumonia Code(s): J18.9 - PNEUMONIA, UNSPECIFIED ORGANISM Status: Acute (3) Pericardial effusion Code(s): I31.3 - PERICARDIAL EFFUSION (NONINFLAMMATORY) Status: Acute (4) Hypertension Code(s): I10 - ESSENTIAL (PRIMARY) HYPERTENSION Status: Chronic (5) Tobacco abuse Code(s): Z72.0 - TOBACCO USE Status: Chronic (6) NATHAN (acute kidney injury) Code(s): N17.9 - ACUTE KIDNEY FAILURE, UNSPECIFIED Status: Resolved - Plan Continue IV Zosyn Await lymph node path report. Pt needs IV access, central line per surgical service. Increase Mucinex dose.
[2019-01-30] MEDS: Sodium Chloride 0.9% 10 ML ONE (16:31)
[2019-01-30] MEDS: Diabetic Tussin 200 MG/10 ML UDCUP PO PRN (16:51)
[2019-01-30] MEDS: Amlodipine 10 MG TAB PO SCH (20:25)
[2019-01-30] MEDS: HYDROcodone/Acetaminophen 5/325 mg Tablet PO PRN (20:25)
[2019-01-30] MEDS: Atorvastatin Calcium 40 MG TAB PO SCH (20:25)
--- NOTE | 2019-01-30 21:31 | PRG ---
DATE OF SERVICE: 01/30/2019 SUBJECTIVE: Eddie Jennings had no new complaints. We discussed his pending lymph node biopsy results. There are no results back yet. If we do not have results in the morning, I will call Pathology. His lymph node biopsy was done on the . OBJECTIVE: LUNGS: Clear. GENERAL: He is in no distress. He has no complaints. VITAL SIGNS: Stable. IMPRESSION AND PLAN: Lung mass, awaiting results of lymph node biopsy. We will follow the other physicians. Job ID: [id number]
[2019-01-31] MEDS: Piperacillin/Tazobactam 4.5 GM in Sodium Chloride 0.9% 100 ML IVPB SCH ×3 (05:29→20:45)
[2019-01-31] MEDS: Cepastat Lozenges 1 LOZ PO PRN ×2 (05:30→20:45)
[2019-01-31] MEDS: Mometasone/Formoterol 120 PUFF INHALER INH SCH ×2 (07:31→19:28)
[2019-01-31] MEDS ORDERED: Sodium Chloride 0.9% 10 ML ONE ×2 (08:58→13:32)
[2019-01-31] MEDS: Saccharomyces boulardii 250 MG CAP PO SCH (09:55)
[2019-01-31] MEDS: Metoprolol Tartrate 25 MG TAB PO SCH ×2 (09:55→20:42)
[2019-01-31] MEDS: Enoxaparin Sodium 40 MG/0.4 ML SYRINGE SC SCH (09:55)
[2019-01-31] MEDS: Clopidogrel Bisulfate 75 MG TAB PO SCH (09:55)
[2019-01-31] MEDS: guaiFENesin ER 600 MG TAB PO SCH ×2 (09:55→20:42)
[2019-01-31] MEDS: Aspirin 81 mg Enteric Coated Tablet PO SCH (09:55)
[2019-01-31] MEDS: methylPREDNISolone Sod Succ 40 MG VIAL IVP SCH ×2 (09:56→20:45)
[2019-01-31] MEDS: Famotidine 20 MG TAB PO SCH ×2 (09:56→20:42)
[2019-01-31] MEDS: Lisinopril 10 MG TAB PO SCH (09:57)
[2019-01-31] MEDS: Famotidine/PF 20 mg/2ml Vial SLOW IVP SCH ×2 (10:00→20:44)
--- NOTE | 2019-01-31 14:35 | PDOC.HOSPP ---
- Subjective Subjective: Pt seen for followup re: lung mass. Feels better, coughing up a lot of sputum. - Objective Vital Signs & Weight: Vital Signs (12 hours) Temp Pulse Resp BP BP BP Pulse Ox 01/31/19 14:13 87 18 95 01/31/19 11:35 97.2 F L 81 20 131/89 94 L 01/31/19 10:40 91 18 98 01/31/19 09:57 183/94 H 01/31/19 07:48 98.9 F 78 18 184/97 H 94 L 01/31/19 07:30 88 18 96 01/31/19 04:00 97.9 F 55 L 20 169/83 H 93 L Weight Weight 223 lb 8 oz I&O: 01/30/19 01/31/19 02/01/19 06:59 06:59 06:59 Intake Total 1181 1725 Output Total 1250 875 Balance -69 850 Result Diagrams: 01/28/19 06:42 01/28/19 06:42 Additional Labs: Labs and MARs reviewed by me EKG Reviewed by me: Yes (Tele: NSR) ROS - Review of Systems All systems: All other ROS were reviewed and found negative. Respiratory: reports: cough, sputum. denies: dry, shortness of breath, hemoptysis, SOB with excertion, pleuritic pain, wheezing Cardiovascular: denies: chest pain, palpitations, orthopnea, paroxysmal noc. dyspnea, edema, light headedness - Medication Medications: Active Medications Generic Name Dose Route Start Last Admin Trade Name Freq PRN Reason Stop Dose Admin Acetaminophen 650 mg 01/27/19 08:05 01/28/19 21:59 Tylenol PO 650 mg Q4H PRN Administration Headache/Fever/Mild Pain (1-3) Hydrocodone Bitart/Acetaminophen 1 tab 01/27/19 08:05 01/30/19 20:25 [place] 5/325 PO 1 tab Q4H PRN Administration Moderate Pain (4-6) Albuterol/Ipratropium 3 ml 01/27/19 06:30 01/31/19 14:13 Duoneb NEB 3 ml [id number] [facility]OR Administration Amlodipine Besylate 10 mg 01/27/19 21:00 01/30/19 20:25 Norvasc PO 10 mg QPM [facility] Administration Aspirin 81 mg 01/28/19 09:00 01/31/19 09:55 Ecotrin PO 81 mg DAILY [facility] Administration Atorvastatin Calcium 80 mg 01/27/19 21:00 01/30/19 20:25 Lipitor PO 80 mg HS [facility] Administration Clonidine 0.1 mg 01/27/19 08:05 01/29/19 17:45 Catapres PO 0.1 mg Q4H PRN Administration SBP Greater Than 170 Clopidogrel Bisulfate 75 mg 01/28/19 09:00 01/31/19 09:55 Plavix PO 75 mg DAILY [facility] Administration Enoxaparin Sodium 40 mg 01/27/19 09:00 01/31/19 09:55 Lovenox SC 40 mg 0900 [facility] Administration Famotidine 20 mg 01/27/19 09:00 01/31/19 10:00 Pepcid SLOW IVP Not Given Q12HR [facility] Famotidine 20 mg 01/27/19 09:00 01/31/19 09:56 Pepcid PO 20 mg BID [facility] Administration Guaifenesin 200 mg 01/27/19 08:05 01/30/19 16:51 Robitussin Sf PO 200 mg Q4H PRN Administration Cough Guaifenesin 1,200 mg 01/30/19 21:00 01/31/19 09:55 Mucinex PO 1,200 mg Q12HR [facility] Administration Hydralazine HCl 10 mg 01/27/19 08:05 01/28/19 12:07 Apresoline SLOW IVP 10 mg Q4H PRN Administration SBP > 180 and HR < 70 Piperacillin Sod/Tazobactam 100 mls @ 200 mls/hr 01/27/19 06:00 01/31/19 05: 29 Sod 4.5 gm/ Sodium Chloride IVPB 100 mls Q8HR [facility] Administration Lisinopril 10 mg 01/28/19 09:00 01/31/19 09:57 Zestril PO 10 mg DAILY [facility] Administration Methylprednisolone Sodium Succinate 40 mg 01/28/19 21:00 01/31/19 09:56 Solu-Medrol IVP 40 mg BID [facility] Administration Metoprolol Tartrate 25 mg 01/28/19 21:00 01/31/19 09:55 Lopressor PO 25 mg BID [facility] Administration Mometasone Furoate/Formoterol Fumar 2 puff 01/28/19 18:30 01/31/19 07:31 Dulera 200 Mcg/5 Mcg Inhaler INH 2 puff BID-RT [facility] Administration Nicotine 21 mg 01/27/19 08:05 01/27/19 12:48 Nicoderm Patch TD 21 mg Q24H PRN Administration Smoking Cessation Saccharomyces Boulardii 250 mg 01/27/19 09:00 01/31/19 09:55 Florastor PO 250 mg DAILY [facility] Administration Throat Lozenges 1 tayo 01/27/19 08:05 01/31/19 05:30 Cepastat Lozenges PO 1 tayo Q2H PRN Administration Sore Throat Zolpidem Tartrate 5 mg 01/27/19 08:05 01/27/19 20:09 Ambien PO 5 mg HSPRN PRN Administration Insomnia - Exam NAD Eye: anicteric sclera ENT: normocephalic atraumatic Neck: supple Heart: RRR Respiratory: CTAB Gastrointestinal: soft Skin: normal turgor Psychiatric: normal affect Hosp A/P (1) Lung mass Code(s): R91.8 - OTHER NONSPECIFIC ABNORMAL FINDING OF LUNG FIELD Status: Acute (2) Pneumonia Code(s): J18.9 - PNEUMONIA, UNSPECIFIED ORGANISM Status: Acute (3) Pericardial effusion Code(s): I31.3 - PERICARDIAL EFFUSION (NONINFLAMMATORY) Status: Acute (4) Hypertension Code(s): I10 - ESSENTIAL (PRIMARY) HYPERTENSION Status: Chronic (5) Tobacco abuse Code(s): Z72.0 - TOBACCO USE Status: Chronic (6) NATHAN (acute kidney injury) Code(s): N17.9 - ACUTE KIDNEY FAILURE, UNSPECIFIED Status: Resolved - Plan plan discussed w/ family, continue antibiotics, PT/OT, respiratory therapy, out of bed/ambulate Await pathology report. Continue IV Zosyn Continue Mucinex Continue nicotine patch.
--- NOTE | 2019-01-31 15:33 | PRG ---
DATE OF SERVICE: 01/31/2019 SUBJECTIVE: Eddie Jennings has no new complaints. Pathology is consistent with metastatic adenocarcinoma originating in the lung. OBJECTIVE: VITAL SIGNS: He is afebrile, heart rate is 81, respiratory rate is 20, oximetry is 94%, and blood pressure 131/89. LUNGS: Clear. HEART: Regular rhythm. ABDOMEN: Soft. IMPRESSION: 1. Metastatic lung cancer, stage IV based on biopsy of a supraclavicular node. 2. History of coronary artery disease. 3. Hypertension. 4. Pericardial effusion, which is not creating any tamponade physiology. PLAN: Chemotherapy recommendations for Oncology are pending. Job ID: [id number]
[2019-01-31] MEDS: cloNIDine 0.1 MG TAB PO PRN (17:36)
[2019-01-31] MEDS: Atorvastatin Calcium 40 MG TAB PO SCH (20:42)
[2019-01-31] MEDS: HYDROcodone/Acetaminophen 5/325 mg Tablet PO PRN (20:42)
[2019-01-31] MEDS: Amlodipine 10 MG TAB PO SCH (20:43)
[2019-01-31] MEDS: Diabetic Tussin 200 MG/10 ML UDCUP PO PRN (20:47)
[2019-02-01] MEDS: Piperacillin/Tazobactam 4.5 GM in Sodium Chloride 0.9% 100 ML IVPB SCH ×3 (06:18→20:38)
[2019-02-01] MEDS: Cepastat Lozenges 1 LOZ PO PRN ×4 (06:22→20:40)
[2019-02-01] MEDS: Mometasone/Formoterol 120 PUFF INHALER INH SCH ×2 (07:50→19:19)
--- NOTE | 2019-02-01 08:41 | PDOC.MOPN ---
Interval History: Pt feeling better but still having cough and lots of phlegm. His path showed Lung adenocarcinoma. I d/w the patient and his family the diagnosis, prognosis, and potential treatments. - Vital Signs Vital Signs: Vital Signs (12 hours) Temp Pulse Resp BP BP BP Pulse Ox 02/01/19 07:50 71 18 97 02/01/19 07:40 97.7 F 72 20 184/96 H 93 L 02/01/19 04:00 97.6 F 64 16 139/87 92 L 01/31/19 22:16 67 20 01/31/19 20:43 80 166/93 H Weight Weight 222 lb 6.4 oz - Physical Exam General: Alert, Oriented x3, No acute distress HEENT: Other (B/L cervical and supraclavicular LAD) Lungs: Other (CTAB) Cardiovascular: Regular rate, Normal S1, Normal S2, No murmurs, Gallops, Rubs Abdomen: Normal bowel sounds, Soft, No tenderness, No hepatospenomegaly, No masses Extremities: No clubbing, No cyanosis, No edema, Normal pulses, No tenderness/ swelling Skin: No rashes, No breakdown, No significant lesion Neurological: Normal gait, Normal speech, Strength at 5/5 X4 ext, Normal tone, Sensation intact, Cranial nerves 3-12 NL, Reflexes 2+ Psych/Mental Status: Mental status NL, Mood NL - Labs Result Diagrams: 01/28/19 06:42 01/28/19 06:42 - Pathology Pathology: supraclavicular LN - Lung adenocarcinoma A/P - Problem (1) Lung cancer Current Visit: Yes Code(s): C34.90 - MALIGNANT NEOPLASM OF UNSP PART OF UNSP BRONCHUS OR LUNG Status: Acute - Plan Plan: Adenocarcinoma, stage IV MRI-brain outpatient PET Mediport by Dr. Farnsworth path: f/u PD-L1 and lung panel to determine proper treatment - immunotherapy vs chemoimmunotherapy vs targeted oral therapies
[2019-02-01] MEDS: Famotidine/PF 20 mg/2ml Vial SLOW IVP SCH ×2 (09:18→20:42)
[2019-02-01] MEDS: methylPREDNISolone Sod Succ 40 MG VIAL IVP SCH ×2 (09:21→20:47)
[2019-02-01] MEDS: Clopidogrel Bisulfate 75 MG TAB PO SCH (09:22)
[2019-02-01] MEDS: Enoxaparin Sodium 40 MG/0.4 ML SYRINGE SC SCH (09:22)
[2019-02-01] MEDS: Lisinopril 10 MG TAB PO SCH (09:22)
[2019-02-01] MEDS: Famotidine 20 MG TAB PO SCH ×2 (09:22→20:41)
[2019-02-01] MEDS: Aspirin 81 mg Enteric Coated Tablet PO SCH (09:22)
[2019-02-01] MEDS: Metoprolol Tartrate 25 MG TAB PO SCH ×2 (09:23→20:41)
[2019-02-01] MEDS: guaiFENesin ER 600 MG TAB PO SCH ×2 (09:23→20:41)
[2019-02-01] MEDS: Saccharomyces boulardii 250 MG CAP PO SCH (09:25)
--- NOTE | 2019-02-01 11:36 | MRI ---
MRI BRAIN WITH AND WITHOUT CONTRAST: DATE: 02/01/2019 HISTORY: 63-year-old male with lung cancer. Evaluate for brain metastasis. TECHNIQUE: Multiplanar, multisequence MRI of the brain obtained pre and post IV injection of gadolinium based co ntrast agent. FINDINGS: There is no obstructive hydrocephalus. There is no midline shift or any other evidence of mass effect . There is no extra-axial fluid collection. There is a moderate-severe degree of T2-hyperintensities in the cerebral white matter consistent with chronic ischemic white matter change s due to microvascular atherosclerosis. There is no abnormal enhancement, mass, recent hemorrhage, or restricted diffusion. No evidence of intracranial metastasis. IMPRESSION: 1) moderate-severe chronic ischemic white matter changes. 2) otherwise negative
--- NOTE | 2019-02-01 13:52 | PDOC.HOSPP ---
- Subjective Subjective: Pt seen for followup re: lung cancer. Cough+, sputum+ - Objective Vital Signs & Weight: Vital Signs (12 hours) Temp Pulse Resp BP BP BP Pulse Ox 02/01/19 12:10 97.8 F 72 20 171/80 H 92 L 02/01/19 11:00 70 16 94 L 02/01/19 07:50 71 18 97 02/01/19 07:40 97.7 F 72 20 184/96 H 93 L 02/01/19 04:00 97.6 F 64 16 139/87 92 L Weight Weight 222 lb 6.4 oz I&O: 01/31/19 02/01/19 02/02/19 06:59 06:59 06:59 Intake Total 1725 3020 Output Total 875 1350 Balance 850 1670 Result Diagrams: 01/28/19 06:42 01/28/19 06:42 Additional Labs: Labs and MARs reviewed by me EKG Reviewed by me: Yes (Tele: NSR) ROS - Review of Systems All systems: All other ROS were reviewed and found negative. Constitutional: denies: fever, chills, sweats, weakness, malaise Respiratory: reports: cough, sputum. denies: dry, shortness of breath, hemoptysis, SOB with excertion, pleuritic pain, wheezing Neurological: denies: weakness, numbness, incoordination, change in speech, confusion, seizures - Medication Medications: Active Medications Generic Name Dose Route Start Last Admin Trade Name Freq PRN Reason Stop Dose Admin Acetaminophen 650 mg 01/27/19 08:05 01/28/19 21:59 Tylenol PO 650 mg Q4H PRN Administration Headache/Fever/Mild Pain (1-3) Hydrocodone Bitart/Acetaminophen 1 tab 01/27/19 08:05 01/31/19 20:42 [place] 5/325 PO 1 tab Q4H PRN Administration Moderate Pain (4-6) Albuterol/Ipratropium 3 ml 01/27/19 06:30 02/01/19 11:00 Duoneb NEB 3 ml [id number] [facility] Administration Amlodipine Besylate 10 mg 01/27/19 21:00 01/31/19 20:43 Norvasc PO 10 mg QPM [facility] Administration Aspirin 81 mg 01/28/19 09:00 02/01/19 09:22 Ecotrin PO 81 mg DAILY [facility] Administration Atorvastatin Calcium 80 mg 01/27/19 21:00 01/31/19 20:42 Lipitor PO 80 mg HS [facility] Administration Clonidine 0.1 mg 01/27/19 08:05 01/31/19 17:36 Catapres PO 0.1 mg Q4H PRN Administration SBP Greater Than 170 Clopidogrel Bisulfate 75 mg 01/28/19 09:00 02/01/19 09:22 Plavix PO 75 mg DAILY [facility] Administration Enoxaparin Sodium 40 mg 01/27/19 09:00 02/01/19 09:22 Lovenox SC 40 mg 0900 [facility] Administration Famotidine 20 mg 01/27/19 09:00 02/01/19 09:18 Pepcid SLOW IVP Not Given Q12HR [facility] Famotidine 20 mg 01/27/19 09:00 02/01/19 09:22 Pepcid PO 20 mg BID [facility] Administration Guaifenesin 200 mg 01/27/19 08:05 01/31/19 20:47 Robitussin Sf PO 200 mg Q4H PRN Administration Cough Guaifenesin 1,200 mg 01/30/19 21:00 02/01/19 09:23 Mucinex PO 1,200 mg Q12HR [facility] Administration Hydralazine HCl 10 mg 01/27/19 08:05 01/28/19 12:07 Apresoline SLOW IVP 10 mg Q4H PRN Administration SBP > 180 and HR < 70 Piperacillin Sod/Tazobactam 100 mls @ 200 mls/hr 01/27/19 06:00 02/01/19 06: 18 Sod 4.5 gm/ Sodium Chloride IVPB 100 mls Q8HR [facility] Administration Lisinopril 10 mg 01/28/19 09:00 02/01/19 09:22 Zestril PO 10 mg DAILY [facility] Administration Methylprednisolone Sodium Succinate 40 mg 01/28/19 21:00 02/01/19 09:21 Solu-Medrol IVP 40 mg BID [facility] Administration Metoprolol Tartrate 25 mg 01/28/19 21:00 02/01/19 09:23 Lopressor PO 25 mg BID [facility] Administration Mometasone Furoate/Formoterol Fumar 2 puff 01/28/19 18:30 02/01/19 07:50 Dulera 200 Mcg/5 Mcg Inhaler INH 2 puff BID-RT [facility] Administration Nicotine 21 mg 01/27/19 08:05 01/27/19 12:48 Nicoderm Patch TD 21 mg Q24H PRN Administration Smoking Cessation Saccharomyces Boulardii 250 mg 01/27/19 09:00 02/01/19 09:25 Florastor PO 250 mg DAILY [facility] Administration Throat Lozenges 1 tayo 01/27/19 08:05 02/01/19 12:08 Cepastat Lozenges PO 1 tayo Q2H PRN Administration Sore Throat Zolpidem Tartrate 5 mg 01/27/19 08:05 01/27/19 20:09 Ambien PO 5 mg HSPRN PRN Administration Insomnia - Exam NAD ENT: normocephalic atraumatic Neck: supple Heart: RRR, no rubs Respiratory: CTAB Gastrointestinal: soft Psychiatric: normal affect, normal behavior Hosp A/P (1) Lung cancer Code(s): C34.90 - MALIGNANT NEOPLASM OF UNSP PART OF UNSP BRONCHUS OR LUNG Status: Acute (2) Pneumonia Code(s): J18.9 - PNEUMONIA, UNSPECIFIED ORGANISM Status: Acute (3) Pericardial effusion Code(s): I31.3 - PERICARDIAL EFFUSION (NONINFLAMMATORY) Status: Acute (4) Hypertension Code(s): I10 - ESSENTIAL (PRIMARY) HYPERTENSION Status: Chronic (5) Tobacco abuse Code(s): Z72.0 - TOBACCO USE Status: Chronic (6) NATHAN (acute kidney injury) Code(s): N17.9 - ACUTE KIDNEY FAILURE, UNSPECIFIED Status: Resolved - Plan plan discussed w/ family, continue antibiotics, PT/OT, out of bed/ambulate, DVT proph w/SCDs Plan for MRI brain, MedPort, chemotherapy. Continue IV Zosyn. Continue Mucinex.
[2019-02-01] MEDS ORDERED: Mag-Al 1200 mg/1200 mg/30 ML UDCUP PO SCH (15:45)
[2019-02-01 17:22] LABS: Troponin I Less than 0.010 ng/mL (< 0.028)
[2019-02-01] MEDS: Amlodipine 10 MG TAB PO SCH (20:41)
[2019-02-01] MEDS: HYDROcodone/Acetaminophen 5/325 mg Tablet PO PRN (20:45)
[2019-02-01] MEDS: Atorvastatin Calcium 40 MG TAB PO SCH (20:45)
--- NOTE | 2019-02-01 20:57 | PRG ---
DATE OF SERVICE: 02/01/2019 SUBJECTIVE: Eddie Jennings is a 63-year-old male. He says that he is overall feeling better. He is aware that he has a metastatic lung cancer. He underwent brain imaging today. No central nervous system metastatic disease was identified. OBJECTIVE: VITAL SIGNS: He is afebrile, heart rate 72, respiratory rate 16, oximetry is 93% on 2 L, blood pressure 147/84. LUNGS: Clear. HEART: Regular rhythm. ABDOMEN: Soft. IMPRESSION: 1. Chronic obstructive pulmonary disease. 2. [id number] respiratory failure with hypoxemia. 3. Metastatic [id number] lung cancer. PLAN: Placement of a port, then chemo plus/minus immunotherapy per Oncology's recommendations. In my opinion, he could be transferred off the telemetry unit. Job ID: [id number]
[2019-02-01 22:48] LABS: Troponin I Less than 0.010 ng/mL (< 0.028)
[2019-02-02] MEDS: Cepastat Lozenges 1 LOZ PO PRN ×4 (03:14→21:23)
[2019-02-02] MEDS: Piperacillin/Tazobactam 4.5 GM in Sodium Chloride 0.9% 100 ML IVPB SCH ×3 (05:56→22:58)
[2019-02-02] MEDS: Mometasone/Formoterol 120 PUFF INHALER INH SCH ×2 (07:10→19:07)
[2019-02-02] MEDS ORDERED: CEFAZOLIN 2 GM in Premix Bag 1 BAG IVPB SCH (07:15)
[2019-02-02] MEDS ORDERED: CEFAZOLIN 2 GM in Sodium Chloride 0.9% 100 ML IVPB SCH (07:30)
[2019-02-02] MEDS: guaiFENesin ER 600 MG TAB PO SCH ×2 (09:57→20:40)
[2019-02-02] MEDS: Aspirin 81 mg Enteric Coated Tablet PO SCH (09:57)
[2019-02-02] MEDS: Famotidine 20 MG TAB PO SCH ×2 (09:58→20:39)
[2019-02-02] MEDS: Saccharomyces boulardii 250 MG CAP PO SCH (09:58)
[2019-02-02] MEDS: Clopidogrel Bisulfate 75 MG TAB PO SCH (09:58)
[2019-02-02] MEDS: Lisinopril 10 MG TAB PO SCH (09:58)
[2019-02-02] MEDS: Enoxaparin Sodium 40 MG/0.4 ML SYRINGE SC SCH (09:58)
[2019-02-02] MEDS: Metoprolol Tartrate 25 MG TAB PO SCH ×2 (09:58→20:40)
[2019-02-02] MEDS: methylPREDNISolone Sod Succ 40 MG VIAL IVP SCH (09:59)
[2019-02-02] MEDS: Famotidine/PF 20 mg/2ml Vial SLOW IVP SCH (10:00)
--- NOTE | 2019-02-02 10:22 | PRG ---
DATE OF SERVICE: 02/02/2019 Eddie Jennings is a pathology return from his supraclavicular node biopsy and he has had an adenocarcinoma, lung primary. Dr. Sharpe has asked me to place a MediPort. That is scheduled for tomorrow afternoon. Dr. Sharpe is waiting on further pathology and analytical data to determine treatment. Plan is to place a MediPort tomorrow. The patient understands risks and benefits, consents. He will be n.p.o. after midnight. Job ID: [id number]
[2019-02-02 11:51] LABS: #Basophils 0.1 thou/uL (0.0-0.2); #Lymphocytes 2.5 thou/uL (1.20-3.40); #Monocytes 1.8 thou/uL (0.11-0.59); #Neutrophils 13.4 thou/uL (1.40-6.50); %Basophils 0.3 % (0.0-1.0); %Eosinophils 0.2 % (0.0-10.0); %Lymphocytes 13.9 % (21.0-51.0); %Monocytes 10.2 % (0.0-10.0); %Neutrophils 75.4 % (42.0-75.0); Hemoglobin 15.4 g/dL (14.0-18.0); Mean Corpuscular HGB CONC 31.9 g/dL (32.0-36.0); Mean Corpuscular Hemoglobin 28.4 pg (27.0-31.0); Mean Corpuscular Volume 88.9 fL (78.0-98.0); Mean Platelet Volume 8.3 fL (7.4-10.4); Platelet Count 276 thou/uL (130-400); RBC Distribution Width 13.9 % (11.5-14.5); Red Blood Cell (RBC) Count 5.41 mill/uL (4.70-6.10); White Blood Cell (WBC) Count 17.8 thou/uL (4.8-10.8)
[2019-02-02 12:00] LABS: Anion Gap 12 mmol/L (10-20); BUN (Urea Nitrogen) 25 mg/dL (8.4-25.7); Calc. Creatinine Clearance 92 mL/min (70-130); Calcium 9.3 mg/dL (7.8-10.44); Carbon Dioxide 29 mmol/L (23-31); Estimated GFR-MDRD 80; Glucose 109 mg/dL (80-115); Potassium 4.1 mmol/L (3.5-5.1)
[2019-02-02 12:09] LABS: Chloride 101 mmol/L (98-107); Sodium 138 mmol/L (136-145)
[2019-02-02] MEDS: Nitroglycerin 0.4 MG TAB (25 Tab Bottle) SL PRN ×2 (14:01→15:33)
--- NOTE | 2019-02-02 17:07 | PDOC.HOSPP ---
- Subjective Subjective: has cough, throat dyscomfort no sob family at bedside - Objective Vital Signs & Weight: Vital Signs (12 hours) Temp Pulse Resp BP BP BP Pulse Ox 02/02/19 16:45 97.9 F 92 20 135/97 H 96 02/02/19 14:00 86 16 97 02/02/19 11:30 97.7 F 78 20 167/97 H 98 02/02/19 10:46 84 18 96 02/02/19 09:58 142/81 H 02/02/19 07:50 97.6 F 90 20 142/81 H 98 02/02/19 07:13 84 20 95 02/02/19 07:10 84 16 95 Weight Weight 212 lb 6.4 oz I&O: 02/01/19 02/02/19 02/03/19 06:59 06:59 06:59 Intake Total 3020 1200 Output Total 1350 Balance 1670 1200 Result Diagrams: 02/02/19 11:29 02/02/19 11:29 ROS - Review of Systems All systems: All other ROS were reviewed and found negative. - Medication Medications: Active Medications Generic Name Dose Route Start Last Admin Trade Name Freq PRN Reason Stop Dose Admin Acetaminophen 650 mg 01/27/19 08:05 01/28/19 21:59 Tylenol PO 650 mg Q4H PRN Administration Headache/Fever/Mild Pain (1-3) Hydrocodone Bitart/Acetaminophen 1 tab 01/27/19 08:05 02/01/19 20:45 [place] 5/325 PO 1 tab Q4H PRN Administration Moderate Pain (4-6) Albuterol/Ipratropium 3 ml 01/27/19 06:30 02/02/19 14:00 Duoneb NEB 3 ml [id number] [facility] Administration Amlodipine Besylate 10 mg 01/27/19 21:00 02/01/19 20:41 Norvasc PO 10 mg QPM [facility] Administration Aspirin 81 mg 01/28/19 09:00 02/02/19 09:57 Ecotrin PO 81 mg DAILY [facility] Administration Atorvastatin Calcium 80 mg 01/27/19 21:00 02/01/19 20:45 Lipitor PO 80 mg HS [facility] Administration Clonidine 0.1 mg 01/27/19 08:05 01/31/19 17:36 Catapres PO 0.1 mg Q4H PRN Administration SBP Greater Than 170 Clopidogrel Bisulfate 75 mg 01/28/19 09:00 02/02/19 09:58 Plavix PO 75 mg DAILY [facility] Administration Enoxaparin Sodium 40 mg 01/27/19 09:00 02/02/19 09:58 Lovenox SC 40 mg 0900 [facility] Administration Famotidine 20 mg 01/27/19 09:00 02/02/19 09:58 Pepcid PO 20 mg BID [facility] Administration Guaifenesin 200 mg 01/27/19 08:05 01/31/19 20:47 Robitussin Sf PO 200 mg Q4H PRN Administration Cough Guaifenesin 1,200 mg 01/30/19 21:00 02/02/19 09:57 Mucinex PO 1,200 mg Q12HR [facility] Administration Hydralazine HCl 10 mg 01/27/19 08:05 01/28/19 12:07 Apresoline SLOW IVP 10 mg Q4H PRN Administration SBP > 180 and HR < 70 Piperacillin Sod/Tazobactam 100 mls @ 200 mls/hr 01/27/19 06:00 02/02/19 14: 04 Sod 4.5 gm/ Sodium Chloride IVPB 100 mls Q8HR [facility] Administration Cefazolin Sodium 2 gm/ Sodium 100 mls @ 100 mls/hr 02/02/19 07:30 02/02/19 09 :59 Chloride IVPB 100 mls WILLCALL [facility] Administration Lisinopril 10 mg 01/28/19 09:00 02/02/19 09:58 Zestril PO 10 mg DAILY [facility] Administration Metoprolol Tartrate 25 mg 01/28/19 21:00 02/02/19 09:58 Lopressor PO 25 mg BID COUNTS INCLUDE 234 BEDS AT [facility] Administration Mometasone Furoate/Formoterol Fumar 2 puff 01/28/19 18:30 02/02/19 07:10 Dulera 200 Mcg/5 Mcg Inhaler INH 2 puff BID-RT [facility] Administration Nicotine 21 mg 01/27/19 08:05 01/27/19 12:48 Nicoderm Patch TD 21 mg Q24H PRN Administration Smoking Cessation Nitroglycerin 0.4 mg 01/27/19 14:58 02/02/19 15:33 Nitrostat SL 1 tab Q5MIN PRN Administration Chest Pain Saccharomyces Boulardii 250 mg 01/27/19 09:00 02/02/19 09:58 Florastor PO 250 mg DAILY [facility] Administration Sodium Chloride 10 ml 02/02/19 09:00 02/02/19 09:59 Flush - Normal Saline IVF 10 ml Q12HR [facility] Administration Throat Lozenges 1 tayo 01/27/19 08:05 02/02/19 14:04 Cepastat Lozenges PO 1 tayo Q2H PRN Administration Sore Throat Zolpidem Tartrate 5 mg 01/27/19 08:05 01/27/19 20:09 Ambien PO 5 mg HSPRN PRN Administration Insomnia - Exam NAD, awake alert Eye: PERRL, anicteric sclera ENT: normocephalic atraumatic, no oropharyngeal lesions Neck: no JVD (has multiple enlarged lymph nodes on both sides) Heart: RRR, no murmur Respiratory: no wheezes, rhonchi Gastrointestinal: soft, non-tender, normal bowel sounds Extremities: no cyanosis, no clubbing Neurological: CN's grossly intact, no focal deficits Musculoskeletal: normal tone, no muscle wasting Psychiatric: normal affect, A&O x 3 Hosp A/P (1) Lung cancer Code(s): C34.90 - MALIGNANT NEOPLASM OF UNSP PART OF UNSP BRONCHUS OR LUNG Status: Acute Qualifiers: Laterality: right Lung location: upper lobe of lung Qualified Code(s): C34.11 - Malignant neoplasm of upper lobe, right bronchus or lung (2) Pericardial effusion Code(s): I31.3 - PERICARDIAL EFFUSION (NONINFLAMMATORY) Status: Acute (3) NATHAN (acute kidney injury) Code(s): N17.9 - ACUTE KIDNEY FAILURE, UNSPECIFIED Status: Resolved (4) Hypertension Code(s): I10 - ESSENTIAL (PRIMARY) HYPERTENSION Status: Chronic Qualifiers: Hypertension type: essential hypertension Qualified Code(s): I10 - Essential (primary) hypertension (5) Dyslipidemia Code(s): E78.5 - HYPERLIPIDEMIA, UNSPECIFIED Status: Chronic (6) Acute bronchitis Code(s): J20.9 - ACUTE BRONCHITIS, UNSPECIFIED Status: Acute Qualifiers: Bronchitis organism: unspecified organism Qualified Code(s): J20.9 - Acute bronchitis, unspecified - Plan is on zosyn, nebs, dulera inhaler, oral prednisone continue asp, plavix, lopressor, norvasc, lisinopril, lipitor await genomic report of adeno ca for help with deciding on immunotherapy/chemo for mediport in am to ambulate as tolerated
[2019-02-02] MEDS ORDERED: Ipratropium Bromide 2.5 ml Neb ONE (19:09)
--- NOTE | 2019-02-02 19:25 | PDOC.EVN ---
Event Note - Event Note Event Note: pt went into afib rvr, rapid respond called. Pt's bp stable 156/80. He was given cardizem 10mg ivp and then started on drip. CXR ordered, labs drawn. I will change his breathing tx. Also pt's updated and she states that he was nervous today since he is going for his mediport placement in am. Pt's HR now 110.
[2019-02-02 19:26] LABS: #Lymphocytes 1.8 thou/uL (1.20-3.40); #Monocytes 1.4 thou/uL (0.11-0.59); #Neutrophils 13.5 thou/uL (1.40-6.50); %Eosinophils 0.2 % (0.0-10.0); %Monocytes 8.4 % (0.0-10.0); %Neutrophils 80.4 % (42.0-75.0); Hemoglobin 15.8 g/dL (14.0-18.0); Mean Corpuscular HGB CONC 32.4 g/dL (32.0-36.0); Mean Corpuscular Volume 89.6 fL (78.0-98.0); Mean Platelet Volume 8.4 fL (7.4-10.4); Platelet Count 250 thou/uL (130-400); RBC Distribution Width 13.9 % (11.5-14.5); Red Blood Cell (RBC) Count 5.46 mill/uL (4.70-6.10); White Blood Cell (WBC) Count 16.8 thou/uL (4.8-10.8)
--- NOTE | 2019-02-02 19:30 | RAD ---
Portable frontal chest radiograph: 02/02/2019 COMPARISON: 01/27/2019 HISTORY: Code Green, follow-up examination FINDINGS: There is prominence of the cardiac silhouette. There is mild elevation of the right hemidia phragm. Probable small right pleural effusion. Left lung is clear. There is focal airspace disease in the right perihilar region with increased density along the minor fissure which may represent alve olar opacity or pleural fluid. Overall, aeration within the right lung has improved. Continued follow-up to full resolution advised. IMPRESSION: Right pleural effusion with focal opacity in the right perihilar region suggesting infect ious pneumonitis or aspiration. No new mass within the right lung apex medially seen on the 01/27/2019 CT examination is not seen on this examination secondary to technique.
[2019-02-02 19:53] LABS: ALT (SGPT) 85 U/L (8-55); AST (SGOT) 75 U/L (5-34); Albumin 3.8 g/dL (3.4-4.8); Alkaline Phosphatase 141 U/L (40-150); Anion Gap 18 mmol/L (10-20); BUN (Urea Nitrogen) 25 mg/dL (8.4-25.7); Bilirubin, Total 0.5 mg/dL (0.2-1.2); Calc. Creatinine Clearance 94 mL/min (70-130); Calcium 9.7 mg/dL (7.8-10.44); Carbon Dioxide 25 mmol/L (23-31); Chloride 101 mmol/L (98-107); Estimated GFR-MDRD 82; Globulin 3.9 g/dL (2.4-3.5); Glucose 136 mg/dL (80-115); Magnesium 1.9 mg/dL (1.6-2.6); Potassium 4.8 mmol/L (3.5-5.1); Protein, Total 7.7 g/dL (5.8-8.1); Sodium 139 mmol/L (136-145)
[2019-02-02] MEDS: Atorvastatin Calcium 40 MG TAB PO SCH (20:39)
[2019-02-02] MEDS: Amlodipine 10 MG TAB PO SCH (20:40)
[2019-02-02] MEDS: Ipratropium Bromide 2.5 ml Neb NEB SCH (22:01)
[2019-02-03] MEDS: Ipratropium Bromide 2.5 ml Neb NEB SCH ×6 (02:01→21:55)
[2019-02-03] MEDS: Diabetic Tussin 200 MG/10 ML UDCUP PO PRN ×2 (05:08→15:49)
[2019-02-03] MEDS: Piperacillin/Tazobactam 4.5 GM in Sodium Chloride 0.9% 100 ML IVPB SCH (05:09)
[2019-02-03] MEDS: Mometasone/Formoterol 120 PUFF INHALER INH SCH ×2 (07:02→19:15)
[2019-02-03] MEDS: Sodium Chloride 0.9% 1,000 ML IV SCH ×2 (08:42→16:04)
[2019-02-03] MEDS ORDERED: Bupivacaine HCl 0.5%/Epinephrine 1:200,000/PF 30 ml Vial ONE (10:41)
[2019-02-03] MEDS ORDERED: Lidocaine 2% PF 5 ML VIAL ONE ×2 (10:41→11:03)
[2019-02-03] MEDS ORDERED: Midazolam HCl 2 mg/2 ml Vial ONE (10:48)
--- NOTE | 2019-02-03 12:11 | RAD ---
XR Chest 1 View Portable History: MediPort placement Comparison: Radiograph prior day Findings: Marked fullness of the right hilum concerning for lymphangitic spread of tumor. Right upper lobe mass is similar. No pneumothorax. Impression: Uncomplicated placement port catheter.
--- NOTE | 2019-02-03 12:37 | OP ---
DATE OF PROCEDURE: 02/03/2019 PREOPERATIVE DIAGNOSES: Lung cancer, lymphadenopathy, stage IV adenocarcinoma. POSTOPERATIVE DIAGNOSES: Lung cancer, lymphadenopathy, stage IV adenocarcinoma. PROCEDURE PERFORMED: Right subclavian vein MediPort, low-profile, fluoroscopy used. ANESTHESIA: TIVA, local of 0.5% Marcaine with epinephrine 30 mL. DESCRIPTION OF PROCEDURE: Under intravenous sedation, chest and neck were prepared with ChloraPrep and draped in routine fashion. Local anesthetic was infiltrated in the skin and subcutaneous tissue about the operative site. Infraclavicular approach used to cannulate the subclavian vein and with a trocar catheter and J-wire threaded, trocar catheter removed. Skin site was enlarged sharply and subcutaneous pocket was created with blunt and sharp dissection, using cautery for hemostasis. Dilator and Peel-Away sheath were placed over the J-wire in the superior vena cava. Dilator and J-wire were removed. Catheter placed with Peel-Away sheath. Peel-Away sheath removed. Catheter fluoroscopically was placed in optimal position in superior vena cava and catheter tailored to length and connected to the MediPort, placed in subcutaneous pocket and secured with 2 interrupted suture of 3-0 Prolene. Subcutaneous tissue was approximated with 3-0 Monocryl, skin with subdermal 4-0 Monocryl and [place] glue applied. MediPort accessed with a Lou needle, aspirated blood, flushed with heparinized saline solution placed. The patient tolerated the procedure well. Job ID: [id number]
[2019-02-03] MEDS: Lisinopril 10 MG TAB PO SCH (13:18)
[2019-02-03] MEDS: Aspirin 81 mg Enteric Coated Tablet PO SCH (13:18)
[2019-02-03] MEDS: Saccharomyces boulardii 250 MG CAP PO SCH (13:18)
[2019-02-03] MEDS: Clopidogrel Bisulfate 75 MG TAB PO SCH (13:19)
[2019-02-03] MEDS: predniSONE 20 MG TAB PO SCH (13:19)
[2019-02-03] MEDS: Famotidine 20 MG TAB PO SCH ×2 (13:19→21:29)
[2019-02-03] MEDS: Enoxaparin Sodium 40 MG/0.4 ML SYRINGE SC SCH (13:19)
[2019-02-03] MEDS: Cepastat Lozenges 1 LOZ PO PRN ×2 (13:19→16:03)
[2019-02-03] MEDS: Metoprolol Tartrate 25 MG TAB PO SCH ×2 (13:20→21:29)
[2019-02-03] MEDS: guaiFENesin ER 600 MG TAB PO SCH ×2 (13:20→21:29)
--- NOTE | 2019-02-03 16:46 | CON ---
DATE OF CONSULTATION: 02/03/2019 REASON FOR CONSULTATION: Atrial fibrillation with RVR. HISTORY OF PRESENT ILLNESS: Mr. Jennings is a very pleasant 63-year-old gentleman, who comes to the hospital for shortness of breath. He has a new diagnosis of lung cancer and was possibly having a pneumonia. He was admitted and during his admission yesterday, he had an episode of atrial fibrillation with RVR, lasted about an hour. He felt very short-winded during the episode. Cardiology is being consulted for this. He was started on diltiazem drip and he converted on his own. Currently, he is in sinus rhythm. His only complaint is having a lot of phlegm. PAST MEDICAL HISTORY: 1. Coronary artery disease, status post inferior AK with bare-metal stent placement. 2. Hypertension. 3. Hyperlipidemia. 4. Tobacco use. 5. New diagnosis of lung cancer. 6. Noncompliance. 7. Drug abuse in the past with cocaine. PAST SURGICAL HISTORY: 1. Right arm surgery. 2. Incision and drainage of abscess on the right foot. 3. Heart catheterization with stent to the mid right coronary with a bare-metal stent. SOCIAL HISTORY: Smokes five cigarettes a day. Alcohol on weekends. No drug use since his AK in October of this year. FAMILY HISTORY: Noncontributory. OUTPATIENT MEDICATIONS: 1. Clonidine 0.1 mg b.i.d. 2. Sublingual nitroglycerin p.r.n. 3. Metoprolol tartrate 12.5 mg b.i.d. 4. Lisinopril 10 mg a day. 5. Plavix 75 mg a day. 6. Lipitor 80 mg at bedtime. 7. Aspirin 81 mg a day. 8. Amlodipine 10 mg q.p.m. ALLERGIES: NO KNOWN DRUG ALLERGIES. REVIEW OF SYSTEMS: A 12-point review of systems was done and was all negative unless stated in the history of present illness. PHYSICAL EXAMINATION: VITAL SIGNS: Temperature 98.0, pulse 86, respiratory rate 18, sat 97% on 2 L, blood pressure 129/84. GENERAL: Awake, alert, oriented x3, in no distress. HEENT: Normocephalic and atraumatic. NECK: Supple. LUNGS: Have coarse breath sounds bilaterally. CARDIOVASCULAR: S1 and S2. No S3 or S4. No murmurs. ABDOMEN: Soft. Positive bowel sounds. EXTREMITIES: Trace edema. SKIN: Warm and dry. LABORATORY DATA: Laboratory work was reviewed. White count of 16, hemoglobin of 15, hematocrit 48, platelet count of 250. Coags were reviewed. Chemistries were reviewed, were unremarkable except for an AST and ALT that are mildly elevated. Troponin is negative x3. Albumin of 3.8. UA was unremarkable. Echocardiogram was reviewed. He has a moderate-sized pericardial effusion and a pleural effusion. EF at 60% with moderate LVH. ASSESSMENT AND PLAN: 1. New onset paroxysmal atrial fibrillation. 2. New diagnosis of lung cancer. 3. Coronary artery disease, status post bare-metal stent to the RCA in October of 2018. 4. History of drug user. 5. History of tobacco use. PLAN: We will plan on up titration of his beta delio. His CHADS-VASc score is only 1 for hypertension, so we will do aspirin alone for stroke prophylaxis. If he continues to have a lot more burden of atrial fibrillation, we will plan on starting anticoagulation for stroke prophylaxis. Thank you for letting me to participate in the care of your patient. We will follow. Job ID: [id number]
--- NOTE | 2019-02-03 18:07 | PDOC.HOSPP ---
- Subjective Subjective: is npo for mediport makes a lot of throat clearing, nasal voices in between few words when he tries to talk has off and on chest dyscomfort, likely due to malignancy no c/o palp, he went into afib with rvr overnight, currently in sinus rhythm on cardizem drip at bedside - Objective Vital Signs & Weight: Vital Signs (12 hours) Temp Pulse Resp BP BP BP Pulse Ox 02/03/19 15:52 98.0 F 114 H 22 H 129/84 99 02/03/19 14:50 86 18 97 02/03/19 13:18 157/81 H 02/03/19 12:35 97.4 F L 73 18 157/81 H 97 02/03/19 10:10 82 18 96 02/03/19 07:20 97.4 F L 71 20 141/72 H 100 02/03/19 07:05 68 20 98 02/03/19 07:02 68 18 98 Weight Weight 212 lb 8 oz I&O: 02/02/19 02/03/19 02/04/19 06:59 06:59 06:59 Intake Total 1200 545 Output Total 960 Balance 1200 -415 Result Diagrams: 02/02/19 19:22 02/02/19 19:22 Additional Labs: Accuchecks 02/02/19 18:52 POC Glucose 161 H ROS - Review of Systems All systems: All other ROS were reviewed and found negative. - Medication Medications: Active Medications Generic Name Dose Route Start Last Admin Trade Name Freq PRN Reason Stop Dose Admin Acetaminophen 650 mg 01/27/19 08:05 01/28/19 21:59 Tylenol PO 650 mg Q4H PRN Administration Headache/Fever/Mild Pain (1-3) Hydrocodone Bitart/Acetaminophen 1 tab 01/27/19 08:05 02/01/19 20:45 [place] 5/325 PO 1 tab Q4H PRN Administration Moderate Pain (4-6) Aspirin 81 mg 01/28/19 09:00 02/03/19 13:18 Ecotrin PO 81 mg DAILY FLOR Administration Atorvastatin Calcium 80 mg 01/27/19 21:00 02/02/19 20:39 Lipitor PO 80 mg HS FLOR Administration Clonidine 0.1 mg 01/27/19 08:05 01/31/19 17:36 Catapres PO 0.1 mg Q4H PRN Administration SBP Greater Than 170 Clopidogrel Bisulfate 75 mg 01/28/19 09:00 02/03/19 13:19 Plavix PO 75 mg DAILY FLOR Administration Enoxaparin Sodium 40 mg 01/27/19 09:00 02/03/19 13:19 Lovenox SC 40 mg 0900 FLOR Administration Famotidine 20 mg 01/27/19 09:00 02/03/19 13:19 Pepcid PO Not Given BID FLOR Guaifenesin 200 mg 01/27/19 08:05 02/03/19 15:49 Robitussin Sf PO 200 mg Q4H PRN Administration Cough Guaifenesin 1,200 mg 01/30/19 21:00 02/03/19 13:20 Mucinex PO Not Given Q12HR FLOR Hydralazine HCl 10 mg 01/27/19 08:05 01/28/19 12:07 Apresoline SLOW IVP 10 mg Q4H PRN Administration SBP > 180 and HR < 70 Sodium Chloride 1,000 mls @ 75 mls/hr 02/03/19 08:00 02/03/19 16:04 Normal Saline 0.9% IV 1,000 mls .[id number] FLOR Administration Cefazolin Sodium 2 gm/ Sodium 100 mls @ 100 mls/hr 02/02/19 07:30 02/02/19 09 :59 Chloride IVPB 100 mls WILLCALL FLOR Administration Diltiazem HCl 125 mg/ Sodium 125 mls @ 5 mls/hr 02/02/19 19:15 02/02/19 19:35 Chloride IVPB 125 mls INF FLOR Administration Protocol Ipratropium [place] 2.5 ml 02/02/19 22:30 02/03/19 14:50 Atrovent NEB 2.5 ml [id number] FLOR Administration Lisinopril 10 mg 01/28/19 09:00 02/03/19 13:18 Zestril PO 10 mg DAILY FLOR Administration Metoprolol Tartrate 25 mg 01/28/19 21:00 02/03/19 13:20 Lopressor PO Not Given BID FLOR Mometasone Furoate/Formoterol Fumar 2 puff 01/28/19 18:30 02/03/19 07:02 Dulera 200 Mcg/5 Mcg Inhaler INH 2 puff BID-RT FLOR Administration Nicotine 21 mg 01/27/19 08:05 01/27/19 12:48 Nicoderm Patch TD 21 mg Q24H PRN Administration Smoking Cessation Nitroglycerin 0.4 mg 01/27/19 14:58 02/02/19 15:33 Nitrostat SL 1 tab Q5MIN PRN Administration Chest Pain Prednisone 10 mg 02/03/19 08:00 02/03/19 13:19 Prednisone PO 10 mg QAM-WM FLOR Administration Saccharomyces Boulardii 250 mg 01/27/19 09:00 02/03/19 13:18 Florastor PO 250 mg DAILY FLOR Administration Sodium Chloride 10 ml 02/02/19 09:00 02/03/19 13:20 Flush - Normal Saline IVF Not Given Q12HR FLOR Sodium Chloride 10 ml 02/02/19 07:18 02/03/19 05:09 Flush - Normal Saline IVF 10 ml PRN PRN Administration Saline Flush Throat Lozenges 1 tayo 01/27/19 08:05 02/03/19 16:03 Cepastat Lozenges PO 1 tayo Q2H PRN Administration Sore Throat Zolpidem Tartrate 5 mg 01/27/19 08:05 01/27/19 20:09 Ambien PO 5 mg HSPRN PRN Administration Insomnia - Exam Eye: PERRL, anicteric sclera ENT: dry oral mucosa Neck: no JVD (multiple lymph nodes both sides of neck) Heart: RRR, no murmur Respiratory: no wheezes, no rales, rhonchi Gastrointestinal: soft, non-tender, non-distended, normal bowel sounds Extremities: no clubbing, no edema Neurological: CN's grossly intact, no focal deficits Musculoskeletal: normal tone, no muscle wasting Psychiatric: normal affect, A&O x 3 Hosp A/P (1) Lung cancer Code(s): C34.90 - MALIGNANT NEOPLASM OF UNSP PART OF UNSP BRONCHUS OR LUNG Status: Acute Qualifiers: Laterality: right Lung location: upper lobe of lung Qualified Code(s): C34.11 - Malignant neoplasm of upper lobe, right bronchus or lung (2) Pericardial effusion Code(s): I31.3 - PERICARDIAL EFFUSION (NONINFLAMMATORY) Status: Acute (3) NATHAN (acute kidney injury) Code(s): N17.9 - ACUTE KIDNEY FAILURE, UNSPECIFIED Status: Resolved (4) Hypertension Code(s): I10 - ESSENTIAL (PRIMARY) HYPERTENSION Status: Chronic Qualifiers: Hypertension type: essential hypertension Qualified Code(s): I10 - Essential (primary) hypertension (5) Dyslipidemia Code(s): E78.5 - HYPERLIPIDEMIA, UNSPECIFIED Status: Chronic (6) Acute bronchitis Code(s): J20.9 - ACUTE BRONCHITIS, UNSPECIFIED Status: Acute Qualifiers: Bronchitis organism: unspecified organism Qualified Code(s): J20.9 - Acute bronchitis, unspecified - Plan not sure if he is a candidate for trach and peg, d/w awaiting genomic studies on his path to aid in treatment consideration dc plan per onc adv afib in sinus on cardizem drip, lopressor bid. Prior ef of 60% on steroids, nebs, lisinopril, dulera, asp, lipitor, plavix prognosis guarded
[2019-02-03] MEDS: Atorvastatin Calcium 40 MG TAB PO SCH (21:29)
[2019-02-04] MEDS: Ipratropium Bromide 2.5 ml Neb NEB SCH ×7 (02:07→22:08)
[2019-02-04] MEDS: Cepastat Lozenges 1 LOZ PO PRN ×2 (05:21→19:51)
[2019-02-04] MEDS: Sodium Chloride 0.9% 1,000 ML IV SCH (05:54)
[2019-02-04] MEDS: Nitroglycerin 0.4 MG TAB (25 Tab Bottle) SL PRN (06:46)
[2019-02-04] MEDS: Mometasone/Formoterol 120 PUFF INHALER INH SCH ×2 (07:19→19:32)
[2019-02-04] MEDS: predniSONE 20 MG TAB PO SCH (08:16)
[2019-02-04] MEDS: Enoxaparin Sodium 40 MG/0.4 ML SYRINGE SC SCH (08:17)
[2019-02-04] MEDS: Aspirin 81 mg Enteric Coated Tablet PO SCH (08:17)
[2019-02-04] MEDS: Clopidogrel Bisulfate 75 MG TAB PO SCH (08:17)
[2019-02-04] MEDS: Lisinopril 10 MG TAB PO SCH (08:18)
[2019-02-04] MEDS: Saccharomyces boulardii 250 MG CAP PO SCH (08:18)
[2019-02-04] MEDS: Metoprolol Tartrate 25 MG TAB PO SCH ×2 (08:18→19:52)
[2019-02-04] MEDS: guaiFENesin ER 600 MG TAB PO SCH ×2 (08:18→19:52)
[2019-02-04] MEDS: Famotidine 20 MG TAB PO SCH ×2 (08:18→19:51)
--- NOTE | 2019-02-04 12:15 | PDOC.HOSPP ---
- Subjective Subjective: c/o choking sensation to eat and feels his throat is swelling no c/o palpitations - Objective Vital Signs & Weight: Vital Signs (12 hours) Temp Pulse Resp BP BP Pulse Ox 02/04/19 11:20 97.7 F 71 20 134/80 99 02/04/19 10:49 70 16 97 02/04/19 07:23 94 L 02/04/19 07:22 81 16 94 L 02/04/19 07:19 81 20 94 L 02/04/19 07:08 97.6 F 99 25 H 149/65 H 97 02/04/19 04:00 97.9 F 68 20 118/58 L 94 L 02/04/19 02:07 78 16 Weight Weight 211 lb 12.8 oz I&O: 02/03/19 02/04/19 02/05/19 06:59 06:59 06:59 Intake Total 545 3141 Output Total 960 Balance -415 3141 Result Diagrams: 02/02/19 19:22 02/02/19 19:22 ROS - Review of Systems All systems: All other ROS were reviewed and found negative. - Medication Medications: Active Medications Generic Name Dose Route Start Last Admin Trade Name Freq PRN Reason Stop Dose Admin Acetaminophen 650 mg 01/27/19 08:05 01/28/19 21:59 Tylenol PO 650 mg Q4H PRN Administration Headache/Fever/Mild Pain (1-3) Hydrocodone Bitart/Acetaminophen 1 tab 01/27/19 08:05 02/01/19 20:45 [place] 5/325 PO 1 tab Q4H PRN Administration Moderate Pain (4-6) Aspirin 81 mg 01/28/19 09:00 02/04/19 08:17 Ecotrin PO 81 mg DAILY FLOR Administration Atorvastatin Calcium 80 mg 01/27/19 21:00 02/03/19 21:29 Lipitor PO 80 mg HS FLOR Administration Clonidine 0.1 mg 01/27/19 08:05 01/31/19 17:36 Catapres PO 0.1 mg Q4H PRN Administration SBP Greater Than 170 Clopidogrel Bisulfate 75 mg 01/28/19 09:00 02/04/19 08:17 Plavix PO 75 mg DAILY FLOR Administration Enoxaparin Sodium 40 mg 01/27/19 09:00 02/04/19 08:17 Lovenox SC 40 mg 0900 FLOR Administration Famotidine 20 mg 01/27/19 09:00 02/04/19 08:18 Pepcid PO 20 mg BID FLOR Administration Guaifenesin 200 mg 01/27/19 08:05 02/03/19 15:49 Robitussin Sf PO 200 mg Q4H PRN Administration Cough Guaifenesin 1,200 mg 01/30/19 21:00 02/04/19 08:18 Mucinex PO 1,200 mg Q12HR FLOR Administration Hydralazine HCl 10 mg 01/27/19 08:05 01/28/19 12:07 Apresoline SLOW IVP 10 mg Q4H PRN Administration SBP > 180 and HR < 70 Cefazolin Sodium 2 gm/ Sodium 100 mls @ 100 mls/hr 02/02/19 07:30 02/02/19 09 :59 Chloride IVPB 100 mls WILLCALL FLOR Administration Diltiazem HCl 125 mg/ Sodium 125 mls @ 5 mls/hr 02/02/19 19:15 02/03/19 19:59 Chloride IVPB 125 mls INF FLOR Administration Protocol Ipratropium [place] 2.5 ml 02/02/19 22:30 02/04/19 10:49 Atrovent NEB 2.5 ml [id number] FLOR Administration Lisinopril 10 mg 01/28/19 09:00 02/04/19 08:18 Zestril PO 10 mg DAILY FLOR Administration Metoprolol Tartrate 25 mg 01/28/19 21:00 02/04/19 08:18 Lopressor PO 25 mg BID FLOR Administration Mometasone Furoate/Formoterol Fumar 2 puff 01/28/19 18:30 02/04/19 07:19 Dulera 200 Mcg/5 Mcg Inhaler INH 2 puff BID-RT FLOR Administration Nicotine 21 mg 01/27/19 08:05 01/27/19 12:48 Nicoderm Patch TD 21 mg Q24H PRN Administration Smoking Cessation Nitroglycerin 0.4 mg 01/27/19 14:58 02/04/19 06:46 Nitrostat SL 1 tab Q5MIN PRN Administration Chest Pain Prednisone 10 mg 02/03/19 08:00 02/04/19 08:16 Prednisone PO 10 mg QAM-WM FLOR Administration Saccharomyces Boulardii 250 mg 01/27/19 09:00 02/04/19 08:18 Florastor PO 250 mg DAILY FLOR Administration Sodium Chloride 10 ml 02/02/19 09:00 02/04/19 08:18 Flush - Normal Saline IVF 10 ml Q12HR FLOR Administration Sodium Chloride 10 ml 02/02/19 07:18 02/03/19 05:09 Flush - Normal Saline IVF 10 ml PRN PRN Administration Saline Flush Throat Lozenges 1 tayo 01/27/19 08:05 02/04/19 05:21 Cepastat Lozenges PO 1 tayo Q2H PRN Administration Sore Throat Zolpidem Tartrate 5 mg 01/27/19 08:05 01/27/19 20:09 Ambien PO 5 mg HSPRN PRN Administration Insomnia - Exam NAD, awake alert Eye: PERRL, anicteric sclera ENT: moist mucosa Neck: no JVD (has multiple lymph nodes b/l) Heart: RRR, no rubs Respiratory: no wheezes, rhonchi Gastrointestinal: soft, non-distended, normal bowel sounds Extremities: no cyanosis, no edema Neurological: CN's grossly intact, no focal deficits Psychiatric: normal affect, A&O x 3 Hosp A/P (1) Lung cancer Code(s): C34.90 - MALIGNANT NEOPLASM OF UNSP PART OF UNSP BRONCHUS OR LUNG Status: Acute Qualifiers: Laterality: right Lung location: upper lobe of lung Qualified Code(s): C34.11 - Malignant neoplasm of upper lobe, right bronchus or lung (2) Pericardial effusion Code(s): I31.3 - PERICARDIAL EFFUSION (NONINFLAMMATORY) Status: Acute (3) NATHAN (acute kidney injury) Code(s): N17.9 - ACUTE KIDNEY FAILURE, UNSPECIFIED Status: Resolved (4) Hypertension Code(s): I10 - ESSENTIAL (PRIMARY) HYPERTENSION Status: Chronic Qualifiers: Hypertension type: essential hypertension Qualified Code(s): I10 - Essential (primary) hypertension (5) Dyslipidemia Code(s): E78.5 - HYPERLIPIDEMIA, UNSPECIFIED Status: Chronic (6) Acute bronchitis Code(s): J20.9 - ACUTE BRONCHITIS, UNSPECIFIED Status: Acute Qualifiers: Bronchitis organism: unspecified organism Qualified Code(s): J20.9 - Acute bronchitis, unspecified - Plan bedside swallow eval shows aspiration risk await opinion for likely trach and peg CT neck to see for airway encroachment by malignancy is on cardizem drip, in sinus rhythm nebs, may try nasal sprays continue steroids, lopressor, lipitor, lisinopril, asp, plavix. prognosis guarded
[2019-02-04] MEDS ORDERED: Oxymetazoline HCl 0.05% ( 15 ML ) NASAL PRN (12:34)
[2019-02-04] MEDS ORDERED: predniSONE 20 MG TAB PO SCH (12:45)
[2019-02-04] MEDS ORDERED: ISOVUE-370 76%-LOCM 1 ML ONE (13:49)
--- NOTE | 2019-02-04 14:17 | CT ---
CT SOFT TISSUE NECK WITH CONTRAST: HISTORY: Dysphagia, difficulty swallowing, worsening. Lymphadenopathy. Malignancy. COMPARISON: 01/27/2019 FINDINGS: The visualized brain parenchyma is unremarkable. Bilateral ocular lenses are appropriately located. Both globes are intact. Retrobulbar fat is prese rved. Symmetric attenuation of the optic nerves and ocular rectus muscles. Minimal mucosal disease of the right maxillary sinus. The aerodigestive tract appears to be patent at the level of the nasopharynx and oral cavity. There is circumferential mucosal thickening involving the epiglottis, which has developed since the previou s examination. At the level of the supraglottic larynx, there is narrowing of the airway. Symmetric attenuation of the sternocleidomastoid muscles and salivary glands. Redemonstration of extensive soft tissue neck lymphadenopathy. These are extensive necrotic soft tis mal neck lymph nodes, which have been described on the previous CT report. Extensive lymphadenopathy in the left and right periclavicular region. There is evidence of abnormal lymph nodes in the prevascular space, along with pericardial fluid. Th ere is a mass in the right upper lobe, which has been described on the previous report. This right a pical mass currently measures 2.9 x 2.8 cm. There is pleural-based loculated fluid along the visuali zed right pleura with pleural thickening. Extensive sclerosis of the osseous structures. Possible edema involving the proximal cervical esophagus, just beyond the level of the epiglottis. Stable prevertebral soft tissue swelling and fluid. IMPRESSION: 1. Extensive necrotic lymph nodes, as well as enlarged lymph nodes throughout the neck, similar to t he previous examination. 2. Mucosal thickening of the epiglottis. There appears to be narrowing of the supraglottic airway. 3. Loculated fluid along the right pleura, as well as a right lung mass. 4. There appears to be edematous change involving the proximal cervical esophagus, just beyond the l evel of the epiglottis. Direct visualization is recommended. POS: ARIELLA
[2019-02-04] MEDS: Ipratropium Bromide 0.06% Nasal Inhaler 15ml NASAL SCH ×2 (15:27→19:51)
--- NOTE | 2019-02-04 17:26 | PRG ---
DATE OF SERVICE: 02/04/2019 SUBJECTIVE: Eddie Jennings is doing well. He has no complaints. He had his port placed yesterday. He said that went extremely well. He is very pleased with that procedure. His only complaint today is a tickling in his throat and a constant cough. OBJECTIVE: LUNGS: Free of wheezes. HEART: Regular rhythm. ABDOMEN: Soft. DIAGNOSTIC STUDIES: A CT of his neck was done today, showing his lymphadenopathy. IMPRESSION: I believe a lot of his cough is upper airway mediated. Lymphadenopathy is related to his lung cancer, which is stage IV non-small cell lung cancer. He is not hoarse and not stridors. I would recommend treating him with nasal ipratropium and Afrin for few days. His glottic and upper airway edema certainly could be related to the result of his coughing. He is on Pepcid twice a day, which should minimize reflux pH if he is having that. We will continue to follow, although his prognosis, given the extremely rapid appearance of this tumor, is extremely poor. Job ID: [id number]
[2019-02-04] MEDS: Atorvastatin Calcium 40 MG TAB PO SCH (19:52)
[2019-02-05] MEDS: Cepastat Lozenges 1 LOZ PO PRN ×2 (01:24→03:51)
[2019-02-05] MEDS: Ipratropium Bromide 2.5 ml Neb NEB SCH ×6 (02:11→22:10)
[2019-02-05] MEDS: Mometasone/Formoterol 120 PUFF INHALER INH SCH ×2 (07:17→18:58)
[2019-02-05] MEDS: Clopidogrel Bisulfate 75 MG TAB PO SCH (09:17)
[2019-02-05] MEDS: predniSONE 20 MG TAB PO SCH (09:17)
[2019-02-05] MEDS: Aspirin 81 mg Enteric Coated Tablet PO SCH (09:17)
[2019-02-05] MEDS: Lisinopril 10 MG TAB PO SCH (09:17)
[2019-02-05] MEDS: Metoprolol Tartrate 25 MG TAB PO SCH ×2 (09:17→22:27)
[2019-02-05] MEDS: guaiFENesin ER 600 MG TAB PO SCH ×2 (09:18→22:26)
[2019-02-05] MEDS: Famotidine 20 MG TAB PO SCH ×2 (09:18→22:26)
[2019-02-05] MEDS: Saccharomyces boulardii 250 MG CAP PO SCH (09:18)
[2019-02-05] MEDS: Enoxaparin Sodium 40 MG/0.4 ML SYRINGE SC SCH (09:19)
[2019-02-05] MEDS: Ipratropium Bromide 0.06% Nasal Inhaler 15ml NASAL SCH ×3 (09:19→22:31)
--- NOTE | 2019-02-05 11:13 | PDOC.HOSPP ---
- Subjective Subjective: no new complaints says ipratropium nasal sprays help breathing better at bedside its easier to eat sitting and liquids are good to swallow per patient - Objective Vital Signs & Weight: Vital Signs (12 hours) Temp Pulse Resp BP BP Pulse Ox 02/05/19 10:35 80 16 02/05/19 07:40 97.6 F 87 22 H 123/80 92 L 02/05/19 07:16 80 16 02/05/19 04:00 97.6 F 75 19 168/92 H 96 02/05/19 02:11 70 16 02/04/19 23:20 80 19 128/81 97 Weight Weight 213 lb 1.6 oz I&O: 02/04/19 02/05/19 02/06/19 06:59 06:59 06:59 Intake Total 3141 1235 Output Total 925 Balance 3141 310 Result Diagrams: 02/02/19 19:22 02/02/19 19:22 ROS - Review of Systems All systems: All other ROS were reviewed and found negative. - Medication Medications: Active Medications Generic Name Dose Route Start Last Admin Trade Name Freq PRN Reason Stop Dose Admin Acetaminophen 650 mg 01/27/19 08:05 01/28/19 21:59 Tylenol PO 650 mg Q4H PRN Administration Headache/Fever/Mild Pain (1-3) Hydrocodone Bitart/Acetaminophen 1 tab 01/27/19 08:05 02/01/19 20:45 [place] 5/325 PO 1 tab Q4H PRN Administration Moderate Pain (4-6) Aspirin 81 mg 01/28/19 09:00 02/05/19 09:17 Ecotrin PO 81 mg DAILY FLOR Administration Atorvastatin Calcium 80 mg 01/27/19 21:00 02/04/19 19:52 Lipitor PO 80 mg HS FLOR Administration Clonidine 0.1 mg 01/27/19 08:05 01/31/19 17:36 Catapres PO 0.1 mg Q4H PRN Administration SBP Greater Than 170 Clopidogrel Bisulfate 75 mg 01/28/19 09:00 02/05/19 09:17 Plavix PO 75 mg DAILY FLOR Administration Enoxaparin Sodium 40 mg 01/27/19 09:00 02/05/19 09:19 Lovenox SC 40 mg 0900 FLOR Administration Famotidine 20 mg 01/27/19 09:00 02/05/19 09:18 Pepcid PO 20 mg BID FLOR Administration Guaifenesin 200 mg 01/27/19 08:05 02/03/19 15:49 Robitussin Sf PO 200 mg Q4H PRN Administration Cough Guaifenesin 1,200 mg 01/30/19 21:00 02/05/19 09:18 Mucinex PO 1,200 mg Q12HR FLOR Administration Hydralazine HCl 10 mg 01/27/19 08:05 01/28/19 12:07 Apresoline SLOW IVP 10 mg Q4H PRN Administration SBP > 180 and HR < 70 Cefazolin Sodium 2 gm/ Sodium 100 mls @ 100 mls/hr 02/02/19 07:30 02/02/19 09 :59 Chloride IVPB 100 mls WILLCALL FLOR Administration Diltiazem HCl 125 mg/ Sodium 125 mls @ 5 mls/hr 02/02/19 19:15 02/05/19 04:27 Chloride IVPB 125 mls INF FLOR Administration Protocol Ipratropium [place] 2.5 ml 02/02/19 22:30 02/05/19 10:35 Atrovent NEB 2.5 ml [id number] FLOR Administration Ipratropium [place] 0 ml 02/04/19 15:00 02/05/19 09:19 Atrovent 0.06% Nasal Inhaler NASAL 1 spr TID FLOR Administration Lisinopril 10 mg 01/28/19 09:00 02/05/19 09:17 Zestril PO 10 mg DAILY FLOR Administration Metoprolol Tartrate 25 mg 01/28/19 21:00 02/05/19 09:17 Lopressor PO 25 mg BID FLOR Administration Mometasone Furoate/Formoterol Fumar 2 puff 01/28/19 18:30 02/05/19 07:17 Dulera 200 Mcg/5 Mcg Inhaler INH 2 puff BID-RT FLOR Administration Nicotine 21 mg 01/27/19 08:05 01/27/19 12:48 Nicoderm Patch TD 21 mg Q24H PRN Administration Smoking Cessation Nitroglycerin 0.4 mg 01/27/19 14:58 02/04/19 06:46 Nitrostat SL 1 tab Q5MIN PRN Administration Chest Pain Oxymetazoline HCl 0 sprays 02/04/19 12:34 02/05/19 01:28 Oxymetazoline Hcl NASAL 1 spr BIDPRN PRN Administration Nasal Congestion Prednisone 40 mg 02/05/19 08:00 02/05/19 09:17 Prednisone PO 40 mg QAM-WM FLOR Administration Saccharomyces Boulardii 250 mg 01/27/19 09:00 02/05/19 09:18 Florastor PO 250 mg DAILY FLOR Administration Sodium Chloride 10 ml 02/02/19 09:00 02/05/19 09:19 Flush - Normal Saline IVF 10 ml Q12HR FLOR Administration Sodium Chloride 10 ml 02/02/19 07:18 02/03/19 05:09 Flush - Normal Saline IVF 10 ml PRN PRN Administration Saline Flush Throat Lozenges 1 tayo 01/27/19 08:05 02/05/19 03:51 Cepastat Lozenges PO 1 tayo Q2H PRN Administration Sore Throat Zolpidem Tartrate 5 mg 01/27/19 08:05 01/27/19 20:09 Ambien PO 5 mg HSPRN PRN Administration Insomnia - Exam NAD, awake alert Eye: PERRL, anicteric sclera Neck: no JVD (multiple lymph nodes palpable b/l) Heart: RRR, no murmur Respiratory: no wheezes, no rales, rhonchi Gastrointestinal: soft, non-tender, normal bowel sounds Extremities: no cyanosis, no edema Neurological: CN's grossly intact, no focal deficits Musculoskeletal: normal tone, normal strength Psychiatric: normal affect, A&O x 3 Hosp A/P (1) Lung cancer Code(s): C34.90 - MALIGNANT NEOPLASM OF UNSP PART OF UNSP BRONCHUS OR LUNG Status: Acute Qualifiers: Laterality: right Lung location: upper lobe of lung Qualified Code(s): C34.11 - Malignant neoplasm of upper lobe, right bronchus or lung (2) Pericardial effusion Code(s): I31.3 - PERICARDIAL EFFUSION (NONINFLAMMATORY) Status: Acute (3) NATHAN (acute kidney injury) Code(s): N17.9 - ACUTE KIDNEY FAILURE, UNSPECIFIED Status: Resolved (4) Hypertension Code(s): I10 - ESSENTIAL (PRIMARY) HYPERTENSION Status: Chronic Qualifiers: Hypertension type: essential hypertension Qualified Code(s): I10 - Essential (primary) hypertension (5) Dyslipidemia Code(s): E78.5 - HYPERLIPIDEMIA, UNSPECIFIED Status: Chronic (6) Acute bronchitis Code(s): J20.9 - ACUTE BRONCHITIS, UNSPECIFIED Status: Acute Qualifiers: Bronchitis organism: unspecified organism Qualified Code(s): J20.9 - Acute bronchitis, unspecified - Plan awaiting full histopath report to determine the type of treatment for his stage 4 lung ca start full liq diet and pt has to be sitting upright while eating d/w pt and about the current plan continue asp, plavix, norvasc, lisinopril, nebs, dulera, nasal spray and lopressor is off cardizem drip and in sinus rhythm had 4 beats of non sustained vtac dc plan per onc adv, has mediport
--- NOTE | 2019-02-05 18:29 | PRG ---
DATE OF SERVICE: 02/05/2019 SUBJECTIVE: Eddie samuels says his calf is better. OBJECTIVE: LUNGS: Clear. HEART: Regular rhythm. ABDOMEN: Soft. VITAL SIGNS: Stable. IMPRESSION: Stage IV non-small cell lung cancer. This appears to be clinically a very aggressive tumor as he had an unremarkable chest x-ray 3 months prior to this admission. We will continue with supportive care. Hopefully, we can come up with treatment plan to start next week. Job ID: [id number]
[2019-02-05] MEDS: Atorvastatin Calcium 40 MG TAB PO SCH (22:27)
[2019-02-06] MEDS: Cepastat Lozenges 1 LOZ PO PRN ×2 (00:52→21:43)
[2019-02-06] MEDS: Ipratropium Bromide 2.5 ml Neb NEB SCH ×6 (02:09→22:17)
[2019-02-06] MEDS: Mometasone/Formoterol 120 PUFF INHALER INH SCH ×2 (06:53→18:51)
[2019-02-06] MEDS ORDERED: Nitroglycerin 0.4 MG TAB (25 Tab Bottle) ONE (07:50)
[2019-02-06] MEDS: Nitroglycerin 0.4 MG TAB (25 Tab Bottle) SL PRN ×2 (07:53→08:19)
[2019-02-06] MEDS: Enoxaparin Sodium 40 MG/0.4 ML SYRINGE SC SCH (08:22)
[2019-02-06] MEDS: guaiFENesin ER 600 MG TAB PO SCH ×2 (08:22→21:33)
[2019-02-06] MEDS: Aspirin 81 mg Enteric Coated Tablet PO SCH (08:22)
[2019-02-06] MEDS: Metoprolol Tartrate 25 MG TAB PO SCH ×2 (08:23→21:34)
[2019-02-06] MEDS: Famotidine 20 MG TAB PO SCH ×2 (08:23→21:34)
[2019-02-06] MEDS: Clopidogrel Bisulfate 75 MG TAB PO SCH (08:23)
[2019-02-06] MEDS: Lisinopril 10 MG TAB PO SCH (08:23)
[2019-02-06] MEDS: predniSONE 20 MG TAB PO SCH (08:23)
[2019-02-06] MEDS: Saccharomyces boulardii 250 MG CAP PO SCH (08:23)
[2019-02-06] MEDS: Ipratropium Bromide 0.06% Nasal Inhaler 15ml NASAL SCH ×3 (08:27→21:39)
[2019-02-06 12:13] LABS: ALT (SGPT) 58 U/L (8-55); AST (SGOT) 53 U/L (5-34); Albumin 3.5 g/dL (3.4-4.8); Alkaline Phosphatase 99 U/L (40-150); Anion Gap 19 mmol/L (10-20); BUN (Urea Nitrogen) 45 mg/dL (8.4-25.7); Calc. Creatinine Clearance 78 mL/min (70-130); Calcium 9.7 mg/dL (7.8-10.44); Carbon Dioxide 21 mmol/L (23-31); Chloride 104 mmol/L (98-107); Estimated GFR-MDRD 65; Globulin 3.7 g/dL (2.4-3.5); Glucose 128 mg/dL (80-115); Potassium 4.6 mmol/L (3.5-5.1); Protein, Total 7.2 g/dL (5.8-8.1); Sodium 139 mmol/L (136-145)
[2019-02-06 12:19] LABS: Band 3 % (5-11); Eosinophils 1 % (0-10); Hemoglobin 14.6 g/dL (14.0-18.0); Lymphocytes 18 % (21-51); MDiff Complete? YES; Mean Corpuscular HGB CONC 30.8 g/dL (32.0-36.0); Mean Corpuscular Hemoglobin 27.9 pg (27.0-31.0); Mean Corpuscular Volume 90.7 fL (78.0-98.0); Mean Platelet Volume 8.8 fL (7.4-10.4); Metamyelocyte 1 % (0-0); Monocytes 4 % (0-10); Neutrophil 71 % (42-75); Platelet Count 241 thou/uL (130-400); RBC Distribution Width 14.2 % (11.5-14.5); RBC Morphology Normal; Reactive Lymphocytes 2 % (0-10); Red Blood Cell (RBC) Count 5.25 mill/uL (4.70-6.10)
--- NOTE | 2019-02-06 12:45 | PDOC.MOPN ---
Interval History: Pt still SOB, on oxygen with hoarseness, dysphagia. Tracheostomy and PEG tube are both in the discussion. - Vital Signs Vital Signs: Vital Signs (12 hours) Temp Pulse Pulse Pulse Pulse Pulse Resp 02/06/19 10:38 79 16 02/06/19 08:10 158 H 90 90 02/06/19 08:01 167 H 95 87 02/06/19 08:00 02/06/19 07:50 97.4 F L 160 H 30 H 02/06/19 06:53 90 16 02/06/19 03:59 81 20 02/06/19 02:09 20 Resp Resp Resp Resp BP BP BP 02/06/19 10:38 02/06/19 08:10 32 H 28 H 24 H 142/78 H 114/99 H 02/06/19 08:01 24 H 24 H 24 H 142/78 H 111/95 H 114/99 H 02/06/19 08:00 02/06/19 07:50 02/06/19 06:53 02/06/19 03:59 02/06/19 02:09 BP BP BP Pulse Ox Pulse Ox Pulse Ox Pulse Ox 02/06/19 10:38 02/06/19 08:10 173/89 H 93 L 94 L 02/06/19 08:01 96 98 98 02/06/19 08:00 92 L 02/06/19 07:50 142/78 H 93 L 02/06/19 06:53 02/06/19 03:59 157/89 H 98 02/06/19 02:09 Weight Weight 216 lb 4.375 oz - Physical Exam General: Alert, Oriented x3, No acute distress HEENT: Other (diffuse cervical, supraclavicular LAD) Lungs: Clear to auscultation, Normal air movement Cardiovascular: Regular rate, Normal S1, Normal S2, No murmurs, Gallops, Rubs Abdomen: Normal bowel sounds, Soft, No tenderness, No hepatospenomegaly, No masses Extremities: No clubbing, No cyanosis, No edema, Normal pulses, No tenderness/ swelling Skin: No rashes, No breakdown, No significant lesion Neurological: Normal gait, Normal speech, Strength at 5/5 X4 ext, Normal tone, Sensation intact, Cranial nerves 3-12 NL, Reflexes 2+ Psych/Mental Status: Mental status NL, Mood NL - Labs Result Diagrams: 02/06/19 08:05 02/06/19 08:05 - Pathology Pathology: PD-L1 95% A/P - Problem (1) Lung cancer Current Visit: Yes Code(s): C34.90 - MALIGNANT NEOPLASM OF UNSP PART OF UNSP BRONCHUS OR LUNG Status: Acute - Plan Plan: Diffuse cervical/supraclavicular LN mets from his lung cancer which are threatening his airway. Would like to avoid a trach if possible. His PDL1 is 95 % so he is a candidate for Keytruda monotherapy, however given his extensive disease and clinical situation I believe he requires combination therapy with chemotherapy and Keytruda to maximize GALARZA and hopefully prevent a tracheostomy. He has adenocarcinoma of the lung which does not typically have a rapid response however will still hopefully help to stabilize him. I d/w him the side effects and goals of treatment. start Carboplatin + Sofía + Keytruda - if cannot get Keytruda now then will at least start chemotherapy f/u Dr. Jean for respiratory mgmt CT-A/P to complete staging
--- NOTE | 2019-02-06 12:50 | PDOC.CTH ---
Cardiology Progress Note - Subjective Brief episode of rapid afib this morning after a coughing spell self limited. Asymptomatic. - Objective Vital Signs Temp Pulse Pulse Pulse Pulse Pulse Resp 02/06/19 10:38 79 16 02/06/19 08:10 158 H 90 90 02/06/19 08:01 167 H 95 87 02/06/19 08:00 02/06/19 07:50 97.4 F L 160 H 30 H 02/06/19 06:53 90 16 02/06/19 03:59 81 20 02/06/19 02:09 20 Resp Resp Resp Resp BP BP BP 02/06/19 10:38 02/06/19 08:10 32 H 28 H 24 H 142/78 H 114/99 H 02/06/19 08:01 24 H 24 H 24 H 142/78 H 111/95 H 114/99 H 02/06/19 08:00 02/06/19 07:50 02/06/19 06:53 02/06/19 03:59 02/06/19 02:09 BP BP BP Pulse Ox Pulse Ox Pulse Ox Pulse Ox 02/06/19 10:38 02/06/19 08:10 173/89 H 93 L 94 L 02/06/19 08:01 96 98 98 02/06/19 08:00 92 L 02/06/19 07:50 142/78 H 93 L 02/06/19 06:53 02/06/19 03:59 157/89 H 98 02/06/19 02:09 Weight 216 lb 4.375 oz 02/05/19 02/06/19 02/07/19 06:59 06:59 06:59 Intake Total 1235 300 240 Output Total 925 100 Balance 310 200 240 - Physical Examination General/Neuro: alert & oriented x3, NAD Neck: no JVD present Lungs: CTA, unlabored respirations Heart: RRR Abdomen: NT/ND Extremities: other: (no edema) - Telemetry Telemetry Rhythm: NSR - Labs Result Diagrams: 02/06/19 08:05 02/06/19 08:05 Troponin/CKMB Troponin I 0.014 ng/mL (< 0.028) 02/06/19 08:05 - Assessment/Plan 1. Paroxysmal afob 2. Non small cell lung cancer, Stabe IV, aggressive type 3. CAD, S/P RCA BMS stent in October this year. 4. HTN 5. HLP PLAN: - Continue current doses of BB and CCB. - CHADS VASc score of 1 only, ASA alone for stroke prophylaxis.
--- NOTE | 2019-02-06 12:56 | PDOC.HOSPP ---
- Subjective Subjective: has brief episode of aflutter this am which resolved spontaneously, was assc with coughing spells currently no chest pain or palp - Objective Vital Signs & Weight: Vital Signs (12 hours) Temp Pulse Pulse Pulse Pulse Pulse Resp 02/06/19 10:38 79 16 02/06/19 08:10 158 H 90 90 02/06/19 08:01 167 H 95 87 02/06/19 08:00 02/06/19 07:50 97.4 F L 160 H 30 H 02/06/19 06:53 90 16 02/06/19 03:59 81 20 02/06/19 02:09 20 Resp Resp Resp Resp BP BP BP 02/06/19 10:38 02/06/19 08:10 32 H 28 H 24 H 142/78 H 114/99 H 02/06/19 08:01 24 H 24 H 24 H 142/78 H 111/95 H 114/99 H 02/06/19 08:00 02/06/19 07:50 02/06/19 06:53 02/06/19 03:59 02/06/19 02:09 BP BP BP Pulse Ox Pulse Ox Pulse Ox Pulse Ox 02/06/19 10:38 02/06/19 08:10 173/89 H 93 L 94 L 02/06/19 08:01 96 98 98 02/06/19 08:00 92 L 02/06/19 07:50 142/78 H 93 L 02/06/19 06:53 02/06/19 03:59 157/89 H 98 02/06/19 02:09 Weight Weight 216 lb 4.375 oz I&O: 02/05/19 02/06/19 02/07/19 06:59 06:59 06:59 Intake Total 1235 300 240 Output Total 925 100 Balance 310 200 240 Result Diagrams: 02/06/19 08:05 02/06/19 08:05 Additional Labs: Accuchecks 02/06/19 08:18 POC Glucose 117 H ROS - Review of Systems All systems: All other ROS were reviewed and found negative. - Medication Medications: Active Medications Generic Name Dose Route Start Last Admin Trade Name Freq PRN Reason Stop Dose Admin Acetaminophen 650 mg 01/27/19 08:05 01/28/19 21:59 Tylenol PO 650 mg Q4H PRN Administration Headache/Fever/Mild Pain (1-3) Aspirin 81 mg 01/28/19 09:00 02/06/19 08:22 Ecotrin PO 81 mg DAILY FLOR Administration Atorvastatin Calcium 80 mg 01/27/19 21:00 02/05/19 22:27 Lipitor PO 80 mg HS FLOR Administration Clonidine 0.1 mg 01/27/19 08:05 01/31/19 17:36 Catapres PO 0.1 mg Q4H PRN Administration SBP Greater Than 170 Clopidogrel Bisulfate 75 mg 01/28/19 09:00 02/06/19 08:23 Plavix PO 75 mg DAILY FLOR Administration Enoxaparin Sodium 40 mg 01/27/19 09:00 02/06/19 08:22 Lovenox SC 40 mg 0900 FLOR Administration Famotidine 20 mg 01/27/19 09:00 02/06/19 08:23 Pepcid PO 20 mg BID FLOR Administration Guaifenesin 200 mg 01/27/19 08:05 02/03/19 15:49 Robitussin Sf PO 200 mg Q4H PRN Administration Cough Guaifenesin 1,200 mg 01/30/19 21:00 02/06/19 08:22 Mucinex PO 1,200 mg Q12HR FLOR Administration Hydralazine HCl 10 mg 01/27/19 08:05 01/28/19 12:07 Apresoline SLOW IVP 10 mg Q4H PRN Administration SBP > 180 and HR < 70 Cefazolin Sodium 2 gm/ Sodium 100 mls @ 100 mls/hr 02/02/19 07:30 02/02/19 09 :59 Chloride IVPB 100 mls WILLCALL FLOR Administration Ipratropium [place] 2.5 ml 02/02/19 22:30 02/06/19 10:38 Atrovent NEB 2.5 ml [id number] FLOR Administration Ipratropium [place] 0 ml 02/04/19 15:00 02/06/19 08:27 Atrovent 0.06% Nasal Inhaler NASAL 1 spr TID FLOR Administration Lisinopril 10 mg 01/28/19 09:00 02/06/19 08:23 Zestril PO 10 mg DAILY FLOR Administration Metoprolol Tartrate 25 mg 01/28/19 21:00 02/06/19 08:23 Lopressor PO 25 mg BID FLOR Administration Mometasone Furoate/Formoterol Fumar 2 puff 01/28/19 18:30 02/06/19 06:53 Dulera 200 Mcg/5 Mcg Inhaler INH 2 puff BID-RT FLOR Administration Nicotine 21 mg 01/27/19 08:05 01/27/19 12:48 Nicoderm Patch TD 21 mg Q24H PRN Administration Smoking Cessation Nitroglycerin 0.4 mg 01/27/19 14:58 02/06/19 08:19 Nitrostat SL 1 tab Q5MIN PRN Administration Chest Pain Oxymetazoline HCl 0 sprays 02/04/19 12:34 02/05/19 01:28 Oxymetazoline Hcl NASAL 1 spr BIDPRN PRN Administration Nasal Congestion Prednisone 40 mg 02/05/19 08:00 02/06/19 08:23 Prednisone PO 40 mg QAM-WM FLOR Administration Saccharomyces Boulardii 250 mg 01/27/19 09:00 02/06/19 08:23 Florastor PO 250 mg DAILY FLOR Administration Sodium Chloride 10 ml 02/02/19 09:00 02/06/19 08:23 Flush - Normal Saline IVF 10 ml Q12HR FLOR Administration Sodium Chloride 10 ml 02/02/19 07:18 02/03/19 05:09 Flush - Normal Saline IVF 10 ml PRN PRN Administration Saline Flush Throat Lozenges 1 tayo 01/27/19 08:05 02/06/19 00:52 Cepastat Lozenges PO 1 tayo Q2H PRN Administration Sore Throat Zolpidem Tartrate 5 mg 01/27/19 08:05 01/27/19 20:09 Ambien PO 5 mg HSPRN PRN Administration Insomnia - Exam awake alert, ill appearing Eye: PERRL, anicteric sclera ENT: moist mucosa Neck: no JVD (b/l cervical lymphadenopathy) Heart: RRR, no murmur Respiratory: no wheezes, no rales, rhonchi Gastrointestinal: soft, non-tender, normal bowel sounds Extremities: no cyanosis, no edema Neurological: CN's grossly intact, no focal deficits Musculoskeletal: normal tone, normal strength Psychiatric: normal affect, A&O x 3 Hosp A/P (1) Lung cancer Code(s): C34.90 - MALIGNANT NEOPLASM OF UNSP PART OF UNSP BRONCHUS OR LUNG Status: Acute Qualifiers: Laterality: right Lung location: upper lobe of lung Qualified Code(s): C34.11 - Malignant neoplasm of upper lobe, right bronchus or lung (2) Pericardial effusion Code(s): I31.3 - PERICARDIAL EFFUSION (NONINFLAMMATORY) Status: Acute (3) NATHAN (acute kidney injury) Code(s): N17.9 - ACUTE KIDNEY FAILURE, UNSPECIFIED Status: Acute (4) Hypertension Code(s): I10 - ESSENTIAL (PRIMARY) HYPERTENSION Status: Chronic Qualifiers: Hypertension type: essential hypertension Qualified Code(s): I10 - Essential (primary) hypertension (5) Dyslipidemia Code(s): E78.5 - HYPERLIPIDEMIA, UNSPECIFIED Status: Chronic (6) Acute bronchitis Code(s): J20.9 - ACUTE BRONCHITIS, UNSPECIFIED Status: Acute Qualifiers: Bronchitis organism: unspecified organism Qualified Code(s): J20.9 - Acute bronchitis, unspecified - Plan d/w Aditya this am, will start chemotherapy and await keytruda approval ( has >95% PD L1) add cardizem CD 120mg bid, is on lopressor continue asp, lipitor, plavix, lisinopril on steroids, nebs prognosis guarded, has fairly adv lung cancer d/w patient and at bedside is drinking ensure well, on full liq diet
[2019-02-06] MEDS ORDERED: Iopamidol 370 76% 100 ML VIAL ONE (14:38)
--- NOTE | 2019-02-06 15:27 | EKG ---
Test Reason : CODE GREEN Blood Pressure : / mmHG Vent. Rate : 090 BPM Atrial Rate : 090 BPM P-R Int : 136 ms QRS Dur : 072 ms QT Int : 364 ms P-R-T Axes : 068 086 052 degrees QTc Int : 445 ms Normal sinus rhythm Normal ECG When compared with ECG of 01-FEB-2019 15:35, (Unconfirmed) Nonspecific T wave abnormality no longer evident in Inferior leads Confirmed by BRYSON ANDERSON, . SWan (4) on 02/06/2019 3:27:27 PM Referred By: ANTONIETTA Confirmed By:DR. Nathan MASSEY MD
--- NOTE | 2019-02-06 15:40 | CT ---
CT ABDOMEN AND PELVIS WITH CONTRAST: Date: 02/06/19 Oral contrast was also given, along with IV contrast. INDICATIONS: Lung cancer. Staging. Comparison made to CT chest dated 01/27/19. FINDINGS: Images through lung bases show bilateral effusions, larger on the right. The effusions are similar in size to the prior exam. There is a pericardial effusion present, which was also noted on the prior exam and appears stable. The liver and spleen are unremarkable. The gallbladder shows evidence of mild pericholecystic fluid and edema. There is faint density layeri ng in the gallbladder suggesting gravel or sludge. Cholesterol gallstones may not be apparent on CT. Consider further evaluation with gallbladder ultrasound. Pancreas unremarkable. Adrenal glands unremarkable. Kidneys unremarkable. There is a nonobstructing calculus in the upper pole collecting structures of t he right kidney measuring approximately 3.0 mm. Small bowel loops unremarkable. Colon unremarkable. Aorta shows atherosclerotic changes without aneurysm. No adenopathy. Images through the pelvis show unremarkable urinary bladder. Prostate unremarkable. Osseous structure s show degenerative spine changes with degenerative disc changes throughout the lumbar spine. Nonspec ific mottled density of the visualized vertebra noted. No focal lytic or blastic process. IMPRESSION: 1. Bilateral pleural effusions, larger on the right. Pericardial effusion again noted. 2. Pericholecystic edema and evidence of density layering dependently in the gallbladder. Recommend further evaluation with gallbladder ultrasound. 3. Nonobstructing calculus in the lower pole collecting structures of right kidney. 4. Nonspecific mottled density of vertebral bodies. POS: [facility]
[2019-02-06] MEDS: Atorvastatin Calcium 40 MG TAB PO SCH (21:34)
[2019-02-06] MEDS: HYDROcodone/Acetaminophen 5/325 mg Tablet PO PRN (21:36)
[2019-02-06] MEDS: Zolpidem Tartrate 5 MG TAB PO PRN (21:36)
[2019-02-07] MEDS: Ipratropium Bromide 2.5 ml Neb NEB SCH ×6 (02:10→22:25)
[2019-02-07] MEDS: Mometasone/Formoterol 120 PUFF INHALER INH SCH ×2 (06:38→18:29)
[2019-02-07] MEDS: predniSONE 20 MG TAB PO SCH (09:00)
[2019-02-07] MEDS: Clopidogrel Bisulfate 75 MG TAB PO SCH (09:05)
[2019-02-07] MEDS: Metoprolol Tartrate 25 MG TAB PO SCH ×2 (09:05→21:19)
[2019-02-07] MEDS: Lisinopril 10 MG TAB PO SCH (09:05)
[2019-02-07] MEDS: Aspirin 81 mg Enteric Coated Tablet PO SCH (09:05)
[2019-02-07] MEDS: guaiFENesin ER 600 MG TAB PO SCH ×3 (09:05→21:18)
[2019-02-07] MEDS: Saccharomyces boulardii 250 MG CAP PO SCH (09:05)
[2019-02-07] MEDS: Famotidine 20 MG TAB PO SCH ×2 (09:05→21:17)
[2019-02-07] MEDS: Enoxaparin Sodium 40 MG/0.4 ML SYRINGE SC SCH (09:06)
[2019-02-07] MEDS: Ipratropium Bromide 0.06% Nasal Inhaler 15ml NASAL SCH ×3 (09:06→21:35)
[2019-02-07] MEDS ORDERED: SODIUM CHLORIDE 0.9% IVPB SCH ×2 (12:00)
[2019-02-07] MEDS ORDERED: PEMETREXED IVPB SCH (12:00)
[2019-02-07] MEDS ORDERED: CARBOPLATIN IVPB SCH (12:00)
[2019-02-07] MEDS ORDERED: Dexamethasone 10 MG in Sodium Chloride 0.9% 50 ML IVPB SCH (12:00)
[2019-02-07] MEDS ORDERED: Palonosetron HCl 0.25 MG in Sodium Chloride 0.9% 50 ML IVPB SCH ×2 (12:00→12:15)
[2019-02-07] MEDS ORDERED: Pembrolizumab 200 MG in Sodium Chloride 0.9% 250 ML 250 ML IV SCH (12:15)
[2019-02-07] MEDS ORDERED: Pemetrexed 1,000 MG in Sodium Chloride 0.9% 60 ML IVPB SCH (12:45)
[2019-02-07] MEDS ORDERED: Cyanocobalamin 1000 MCG/ML VIAL IM SCH (12:45)
--- NOTE | 2019-02-07 14:16 | PDOC.MOPN ---
Interval History: No complaints. - Vital Signs Vital Signs: Vital Signs (12 hours) Temp Pulse Resp BP BP Pulse Ox 02/07/19 13:00 98.2 F 78 20 137/94 H 95 02/07/19 10:30 90 18 02/07/19 07:26 97.6 F 88 20 133/70 92 L 02/07/19 06:39 80 18 02/07/19 04:00 97.5 F L 77 20 158/79 H 92 L Weight Admit Weight 212 lb Weight 216 lb - Physical Exam General: Alert, Oriented x3, Cooperative HEENT: PERRLA Lungs: Clear to auscultation Cardiovascular: Regular rate Abdomen: Normal bowel sounds, Soft Extremities: No clubbing, No cyanosis, No edema, Normal pulses, No tenderness/ swelling Skin: No rashes, No breakdown, No significant lesion Neurological: Normal gait, Normal speech Psych/Mental Status: Mental status NL - Labs Result Diagrams: 02/06/19 08:05 02/06/19 08:05 Status: lab reviewed by me - Pathology Pathology: Metastatic lung adenocarcinoma A/P - Problem (1) Lung cancer Current Visit: Yes Code(s): C34.90 - MALIGNANT NEOPLASM OF UNSP PART OF UNSP BRONCHUS OR LUNG Status: Acute - Plan Plan: Begin Carbo/Alimta/Keytruda today, risks discussed
[2019-02-07] MEDS ORDERED: Folic Acid 1 MG TAB PO SCH (14:30)
[2019-02-07] MEDS ORDERED: Cyanocobalamin 1000 MCG/ML VIAL SC SCH (15:00)
--- NOTE | 2019-02-07 15:34 | PRG ---
DATE OF SERVICE: 02/07/2019 SUBJECTIVE: Eddie Jennings is in no distress. OBJECTIVE: He is afebrile, heart rate 83, respiratory rate 20, oximetry is 95% on 3 L. LUNGS: Clear. HEART: Regular rhythm. He is starting chemotherapy today. Today's white count 17, hemoglobin 14.6, platelets 241. Creatinine is 1.34, BUN is 45. Apparently, earlier today, he went into atrial flutter. The code green was called. He converted back to sinus rhythm. It is unclear from the know whether or not Cardiology was notified. We will continue to follow. Job ID: [id number]
--- NOTE | 2019-02-07 17:31 | PDOC.HOSPP ---
- Subjective Subjective: Mr. Jennings was seen today in follow-up of Newly diagnosed lung cancer. He was seen today at approximately 10:15AM. He says he is breathing better, but still appears dyspneic to me. He denies chest pain. - Objective Vital Signs & Weight: Vital Signs (12 hours) Temp Pulse Resp BP Pulse Ox 02/07/19 15:04 98.7 F 83 20 137/95 H 95 02/07/19 14:29 92 20 02/07/19 13:00 98.2 F 78 20 137/94 H 95 02/07/19 10:30 90 18 02/07/19 07:26 97.6 F 88 20 133/70 92 L 02/07/19 06:39 80 18 Weight Admit Weight 212 lb Weight 216 lb I&O: 02/06/19 02/07/19 02/08/19 06:59 06:59 06:59 Intake Total 300 2460 Output Total 100 Balance 200 2460 Result Diagrams: 02/06/19 08:05 02/06/19 08:05 ROS - Review of Systems All systems: All other ROS were reviewed and found negative. - Medication Medications: Active Medications Generic Name Dose Route Start Last Admin Trade Name Freq PRN Reason Stop Dose Admin Acetaminophen 650 mg 01/27/19 08:05 01/28/19 21:59 Tylenol PO 650 mg Q4H PRN Administration Headache/Fever/Mild Pain (1-3) Hydrocodone Bitart/Acetaminophen 1 tab 02/06/19 21:16 02/06/19 21:36 [place] 5/325 PO 1 tab Q4H PRN Administration Moderate Pain (4-6) Aspirin 81 mg 01/28/19 09:00 02/07/19 09:05 Ecotrin PO 81 mg DAILY FLOR Administration Atorvastatin Calcium 80 mg 01/27/19 21:00 02/06/19 21:34 Lipitor PO 80 mg HS FLOR Administration Clonidine 0.1 mg 01/27/19 08:05 01/31/19 17:36 Catapres PO 0.1 mg Q4H PRN Administration SBP Greater Than 170 Clopidogrel Bisulfate 75 mg 01/28/19 09:00 02/07/19 09:05 Plavix PO 75 mg DAILY FLOR Administration Cyanocobalamin 1,000 mcg 02/07/19 15:00 02/07/19 14:51 Vitamin B-12 SC 1,000 mcg WILLCALL FLOR Administration Diltiazem HCl 120 mg 02/06/19 21:00 02/07/19 09:05 Cardizem Cd PO 120 mg BID FLOR Administration Enoxaparin Sodium 40 mg 01/27/19 09:00 02/07/19 09:06 Lovenox SC 40 mg 0900 FLOR Administration Famotidine 20 mg 01/27/19 09:00 02/07/19 09:05 Pepcid PO 20 mg BID FLOR Administration Guaifenesin 200 mg 01/27/19 08:05 02/03/19 15:49 Robitussin Sf PO 200 mg Q4H PRN Administration Cough Guaifenesin 1,200 mg 01/30/19 21:00 02/07/19 09:05 Mucinex PO 1,200 mg Q12HR FLOR Administration Hydralazine HCl 10 mg 01/27/19 08:05 01/28/19 12:07 Apresoline SLOW IVP 10 mg Q4H PRN Administration SBP > 180 and HR < 70 Cefazolin Sodium 2 gm/ Sodium 100 mls @ 100 mls/hr 02/02/19 07:30 02/02/19 09 :59 Chloride IVPB 100 mls WILLCALL FLOR Administration Palonosetron 0.25 mg/ Sodium 55 mls @ 165 mls/hr 02/07/19 12:00 02/07/19 14: 46 Chloride IVPB 02/07/19 18:00 55 mls WILLCALL FLOR Administration Dexamethasone 10 mg/ Sodium 51 mls @ 153 mls/hr 02/07/19 12:00 02/07/19 14:49 Chloride IVPB 02/07/19 18:00 51 mls WILLCALL FLOR Administration Carboplatin 516.4 mg/ Sodium 301.64 mls @ 402.187 mls/hr 02/07/19 12:00 02/07 15:51 Chloride IVPB 02/07/19 18:00 301.64 mls WILLCALL FLOR Administration Miscellaneous Medication 200 258 mls @ 516 mls/hr 02/07/19 12:15 02/07/19 15: 52 mg/ Sodium Chloride IV 02/07/19 18:00 258 mls WILLCALL FLOR Administration Ipratropium [place] 2.5 ml 02/02/19 22:30 02/07/19 14:29 Atrovent NEB 2.5 ml [id number] FLOR Administration Ipratropium [place] 0 ml 02/04/19 15:00 02/07/19 15:17 Atrovent 0.06% Nasal Inhaler NASAL 1 spr TID FLOR Administration Lisinopril 10 mg 01/28/19 09:00 02/07/19 09:05 Zestril PO 10 mg DAILY FLOR Administration Metoprolol Tartrate 25 mg 01/28/19 21:00 02/07/19 09:05 Lopressor PO 25 mg BID FLOR Administration Mometasone Furoate/Formoterol Fumar 2 puff 01/28/19 18:30 02/07/19 06:38 Dulera 200 Mcg/5 Mcg Inhaler INH 2 puff BID-RT FLOR Administration Nicotine 21 mg 01/27/19 08:05 01/27/19 12:48 Nicoderm Patch TD 21 mg Q24H PRN Administration Smoking Cessation Nitroglycerin 0.4 mg 01/27/19 14:58 02/06/19 08:19 Nitrostat SL 1 tab Q5MIN PRN Administration Chest Pain Oxymetazoline HCl 0 sprays 02/04/19 12:34 02/05/19 01:28 Oxymetazoline Hcl NASAL 1 spr BIDPRN PRN Administration Nasal Congestion Prednisone 40 mg 02/05/19 08:00 02/07/19 09:00 Prednisone PO 40 mg QAM-WM FLOR Administration Saccharomyces Boulardii 250 mg 01/27/19 09:00 02/07/19 09:05 Florastor PO 250 mg DAILY FLOR Administration Sodium Chloride 10 ml 02/02/19 09:00 02/07/19 09:06 Flush - Normal Saline IVF 10 ml Q12HR FLOR Administration Sodium Chloride 10 ml 02/02/19 07:18 02/03/19 05:09 Flush - Normal Saline IVF 10 ml PRN PRN Administration Saline Flush Throat Lozenges 1 tayo 01/27/19 08:05 02/06/19 21:43 Cepastat Lozenges PO 1 tayo Q2H PRN Administration Sore Throat Zolpidem Tartrate 5 mg 01/27/19 08:05 02/06/19 21:36 Ambien PO 5 mg HSPRN PRN Administration Insomnia - Exam ill appearing Eye: PERRL, anicteric sclera ENT: normocephalic atraumatic, no oropharyngeal lesions, moist mucosa Neck: no JVD Heart: RRR, no murmur, no gallops, no rubs, normal peripheral pulses Respiratory: tachypneic, wheezes (+ bilateral wheezing, and rales) Extremities: no clubbing, 1+ LE edema (+ ankle edema) Hosp A/P (1) Adenocarcinoma, lung Code(s): C34.90 - MALIGNANT NEOPLASM OF UNSP PART OF UNSP BRONCHUS OR LUNG Status: Acute (2) Acute hypoxemic respiratory failure Code(s): J96.01 - ACUTE RESPIRATORY FAILURE WITH HYPOXIA Status: Acute (3) CKD (chronic kidney disease), stage II Code(s): N18.2 - CHRONIC KIDNEY DISEASE, STAGE 2 (MILD) Status: Chronic (4) Hypertension Code(s): I10 - ESSENTIAL (PRIMARY) HYPERTENSION Status: Chronic Qualifiers: Hypertension type: essential hypertension Qualified Code(s): I10 - Essential (primary) hypertension (5) Atrial fibrillation Code(s): I48.91 - UNSPECIFIED ATRIAL FIBRILLATION Status: Acute - Plan * Adenocarcinoma of Lung- plan is to start Keytruda once this is approved * Acute respiratory failure with hypoxemia- continue supplemental Oxygen and Duoneb treatments and inhaled steroids * HTN- blood pressure is stable * AFIB- heart rate is stable- continue Cardizem, and aspirin for CVA prevention - ( CHADs VASc of 1) * CAD- stable
[2019-02-07] MEDS: Atorvastatin Calcium 40 MG TAB PO SCH (21:14)
[2019-02-07] MEDS: HYDROcodone/Acetaminophen 5/325 mg Tablet PO PRN (21:24)
[2019-02-08] MEDS: Ipratropium Bromide 2.5 ml Neb NEB SCH ×6 (02:23→22:20)
[2019-02-08] MEDS: Mometasone/Formoterol 120 PUFF INHALER INH SCH ×2 (07:24→18:38)
[2019-02-08] MEDS: predniSONE 20 MG TAB PO SCH (08:20)
[2019-02-08] MEDS: Aspirin 81 mg Enteric Coated Tablet PO SCH (08:20)
[2019-02-08] MEDS: guaiFENesin ER 600 MG TAB PO SCH ×2 (08:21→20:42)
[2019-02-08] MEDS: Saccharomyces boulardii 250 MG CAP PO SCH (08:22)
[2019-02-08] MEDS: Clopidogrel Bisulfate 75 MG TAB PO SCH (08:22)
[2019-02-08] MEDS: Folic Acid 1 MG TAB PO SCH (08:22)
[2019-02-08] MEDS: Lisinopril 10 MG TAB PO SCH (08:22)
[2019-02-08] MEDS: Metoprolol Tartrate 25 MG TAB PO SCH ×2 (08:22→20:42)
[2019-02-08] MEDS: Famotidine 20 MG TAB PO SCH ×2 (08:22→20:42)
[2019-02-08] MEDS: Enoxaparin Sodium 40 MG/0.4 ML SYRINGE SC SCH (08:23)
[2019-02-08] MEDS: Ipratropium Bromide 0.06% Nasal Inhaler 15ml NASAL SCH ×2 (08:30→14:14)
--- NOTE | 2019-02-08 11:06 | PDOC.MOPN ---
Interval History: Continues to have hoarseness, increased secretions. - Vital Signs Vital Signs: Vital Signs (12 hours) Temp Pulse Resp BP BP Pulse Ox 02/08/19 08:17 98.4 F 75 20 154/90 H 95 02/08/19 07:29 130 H 20 93 L 02/08/19 07:24 130 H 24 H 93 L 02/08/19 03:34 97.5 F L 72 18 129/82 92 L 02/08/19 00:00 87 22 H 94 L Weight Admit Weight 212 lb Weight 214 lb 1.6 oz - Physical Exam General: Alert, Oriented x3 HEENT: PERRLA Lungs: Other (scattered rhonchi) Cardiovascular: Other (irregular) Abdomen: Normal bowel sounds Extremities: No clubbing Skin: No rashes (Cervical lymphadenopathy) Neurological: Normal gait Psych/Mental Status: Mental status NL - Labs Result Diagrams: 02/06/19 08:05 02/06/19 08:05 Status: lab reviewed by me - Pathology Pathology: Adenocarcinoma - Radiology Interpretation CT - Ab/Pelvis Additional Comment: no evidence of metastatic disease A/P - Problem (1) Lung cancer Current Visit: Yes Code(s): C34.90 - MALIGNANT NEOPLASM OF UNSP PART OF UNSP BRONCHUS OR LUNG Status: Acute
[2019-02-08] MEDS ORDERED: Pemetrexed 1,000 MG in Sodium Chloride 0.9% 60 ML IVPB SCH (11:45)
[2019-02-08] MEDS: Nitroglycerin 0.4 MG TAB (25 Tab Bottle) SL PRN (12:15)
[2019-02-08] MEDS ORDERED: Dexamethasone 10 MG in Sodium Chloride 0.9% 50 ML IVPB SCH (13:15)
[2019-02-08] MEDS: HYDROcodone/Acetaminophen 5/325 mg Tablet PO PRN ×2 (14:14→19:22)
--- NOTE | 2019-02-08 15:22 | PRG ---
DATE OF SERVICE: 02/08/2019 SUBJECTIVE: Mr. Jennings is in no distress. OBJECTIVE: VITAL SIGNS: He is afebrile. Heart rate 65, respiratory rate 20, sats 94% on 2 liters. He still has difficulty swallowing, reminded his not to bring him anything in from outside, as liquids have to be thickened. LUNGS: Coarse with equal breath sounds. HEART: Regular rhythm. ABDOMEN: Soft. He received first part of his chemo yesterday. IMPRESSION: 1. Nonsmall cell lung cancer. 2. Rhinitis-induced cough. 3. Anterior cervical lymphadenopathy. 4. Weakness and deconditioning. PLAN: Chemo and nutritional support plus PT Job ID: [id number] [facility]
--- NOTE | 2019-02-08 16:48 | PDOC.HOSPP ---
- Subjective Encounter Date: 02/08/19 Encounter Time: 16:46 Subjective: Mr. Jennings was seen today in follow-up of Lung cancer. He is feeling a litle better today. He is a bit less short of breath, and he has been able to get some full liquids down. - Objective Vital Signs & Weight: Vital Signs (12 hours) Temp Pulse Resp BP Pulse Ox 02/08/19 16:10 97.9 F 60 20 109/80 93 L 02/08/19 14:16 20 94 L 02/08/19 12:15 98.1 F 65 20 112/75 94 L 02/08/19 08:17 98.4 F 75 20 154/90 H 95 02/08/19 07:29 130 H 20 93 L 02/08/19 07:24 130 H 24 H 93 L Weight Admit Weight 212 lb Weight 214 lb 1.6 oz I&O: 02/07/19 02/08/19 02/09/19 06:59 06:59 06:59 Intake Total 2460 2255.64 Output Total 550 Balance 2460 1705.64 Result Diagrams: 02/06/19 08:05 02/06/19 08:05 ROS - Medication Medications: Active Medications Generic Name Dose Route Start Last Admin Trade Name Freq PRN Reason Stop Dose Admin Acetaminophen 650 mg 01/27/19 08:05 01/28/19 21:59 Tylenol PO 650 mg Q4H PRN Administration Headache/Fever/Mild Pain (1-3) Hydrocodone Bitart/Acetaminophen 1 tab 02/06/19 21:16 02/08/19 14:14 [place] 5/325 PO 1 tab Q4H PRN Administration Moderate Pain (4-6) Aspirin 81 mg 01/28/19 09:00 02/08/19 08:20 Ecotrin PO 81 mg DAILY FLOR Administration Atorvastatin Calcium 80 mg 01/27/19 21:00 02/07/19 21:14 Lipitor PO 80 mg HS FLOR Administration Clonidine 0.1 mg 01/27/19 08:05 01/31/19 17:36 Catapres PO 0.1 mg Q4H PRN Administration SBP Greater Than 170 Clopidogrel Bisulfate 75 mg 01/28/19 09:00 02/08/19 08:22 Plavix PO 75 mg DAILY FLOR Administration Cyanocobalamin 1,000 mcg 02/07/19 15:00 02/07/19 14:51 Vitamin B-12 SC 1,000 mcg WILLCALL FLOR Administration Diltiazem HCl 120 mg 02/06/19 21:00 02/08/19 08:21 Cardizem Cd PO 120 mg BID FLOR Administration Enoxaparin Sodium 40 mg 01/27/19 09:00 02/08/19 08:23 Lovenox SC 40 mg 0900 FLOR Administration Famotidine 20 mg 01/27/19 09:00 02/08/19 08:22 Pepcid PO 20 mg BID FLOR Administration Folic Acid 1 mg 02/08/19 09:00 02/08/19 08:22 Folvite PO 1 mg DAILY FLOR Administration Guaifenesin 200 mg 01/27/19 08:05 02/03/19 15:49 Robitussin Sf PO 200 mg Q4H PRN Administration Cough Guaifenesin 1,200 mg 01/30/19 21:00 02/08/19 08:21 Mucinex PO 1,200 mg Q12HR FLOR Administration Hydralazine HCl 10 mg 01/27/19 08:05 01/28/19 12:07 Apresoline SLOW IVP 10 mg Q4H PRN Administration SBP > 180 and HR < 70 Cefazolin Sodium 2 gm/ Sodium 100 mls @ 100 mls/hr 02/02/19 07:30 02/02/19 09 :59 Chloride IVPB 100 mls WILLCALL FLOR Administration Pemetrexed 1,000 mg/ Sodium 100 mls @ 200 mls/hr 02/08/19 11:45 02/08/19 14: 13 Chloride IVPB 02/08/19 18:00 100 mls WILLCALL FLOR Administration Ipratropium [place] 2.5 ml 02/02/19 22:30 02/08/19 14:16 Atrovent NEB 2.5 ml [id number] FLOR Administration Ipratropium [place] 0 ml 02/04/19 15:00 02/08/19 14:14 Atrovent 0.06% Nasal Inhaler NASAL 1 spr TID FLOR Administration Lisinopril 10 mg 01/28/19 09:00 02/08/19 08:22 Zestril PO 10 mg DAILY FLOR Administration Metoprolol Tartrate 25 mg 01/28/19 21:00 02/08/19 08:22 Lopressor PO 25 mg BID FLOR Administration Mometasone Furoate/Formoterol Fumar 2 puff 01/28/19 18:30 02/08/19 07:24 Dulera 200 Mcg/5 Mcg Inhaler INH 2 puff BID-RT FLOR Administration Nicotine 21 mg 01/27/19 08:05 01/27/19 12:48 Nicoderm Patch TD 21 mg Q24H PRN Administration Smoking Cessation Nitroglycerin 0.4 mg 01/27/19 14:58 02/08/19 12:15 Nitrostat SL 1 tab Q5MIN PRN Administration Chest Pain Oxymetazoline HCl 0 sprays 02/04/19 12:34 02/05/19 01:28 Oxymetazoline Hcl NASAL 1 spr BIDPRN PRN Administration Nasal Congestion Prednisone 40 mg 02/05/19 08:00 02/08/19 08:20 Prednisone PO 40 mg QAM-WM FLOR Administration Saccharomyces Boulardii 250 mg 01/27/19 09:00 02/08/19 08:22 Florastor PO 250 mg DAILY FLOR Administration Sodium Chloride 10 ml 02/02/19 09:00 02/08/19 08:23 Flush - Normal Saline IVF 10 ml Q12HR FLOR Administration Sodium Chloride 10 ml 02/02/19 07:18 02/07/19 21:19 Flush - Normal Saline IVF 10 ml PRN PRN Administration Saline Flush Throat Lozenges 1 tayo 01/27/19 08:05 02/06/19 21:43 Cepastat Lozenges PO 1 tayo Q2H PRN Administration Sore Throat Zolpidem Tartrate 5 mg 01/27/19 08:05 02/06/19 21:36 Ambien PO 5 mg HSPRN PRN Administration Insomnia - Exam Eye: PERRL, anicteric sclera ENT: normocephalic atraumatic, no oropharyngeal lesions Heart: RRR, no murmur, no gallops, no rubs, normal peripheral pulses Respiratory: wheezes (+ bilateral wheezing, and some rales at the bases) Gastrointestinal: soft, non-tender, non-distended, normal bowel sounds Extremities: no cyanosis, 1+ LE edema (trace pedal edema bilaterally) Hosp A/P (1) Adenocarcinoma, lung Code(s): C34.90 - MALIGNANT NEOPLASM OF UNSP PART OF UNSP BRONCHUS OR LUNG Status: Acute (2) Acute hypoxemic respiratory failure Code(s): J96.01 - ACUTE RESPIRATORY FAILURE WITH HYPOXIA Status: Acute (3) CKD (chronic kidney disease), stage II Code(s): N18.2 - CHRONIC KIDNEY DISEASE, STAGE 2 (MILD) Status: Chronic (4) Hypertension Code(s): I10 - ESSENTIAL (PRIMARY) HYPERTENSION Status: Chronic Qualifiers: Hypertension type: essential hypertension Qualified Code(s): I10 - Essential (primary) hypertension (5) Atrial fibrillation Code(s): I48.91 - UNSPECIFIED ATRIAL FIBRILLATION Status: Acute - Plan * Acute respiratory failure- continue duonebs, and steroids * Adenocarcinoma of the lung- He has been initiated on chemotherapy * HTN- blood pressure is stable * AFIB- his heart rate is stable * No anticoagulation
[2019-02-08] MEDS: Atorvastatin Calcium 40 MG TAB PO SCH (20:41)
[2019-02-09] MEDS: Ipratropium Bromide 0.06% Nasal Inhaler 15ml NASAL SCH ×4 (01:18→21:17)
[2019-02-09] MEDS: Ipratropium Bromide 2.5 ml Neb NEB SCH ×6 (01:43→22:51)
[2019-02-09] MEDS: Mometasone/Formoterol 120 PUFF INHALER INH SCH ×2 (07:11→19:22)
[2019-02-09] MEDS: predniSONE 20 MG TAB PO SCH (09:44)
[2019-02-09] MEDS: Aspirin 81 mg Enteric Coated Tablet PO SCH (09:44)
[2019-02-09] MEDS: guaiFENesin ER 600 MG TAB PO SCH ×2 (09:45→21:11)
[2019-02-09] MEDS: Folic Acid 1 MG TAB PO SCH (09:45)
[2019-02-09] MEDS: Clopidogrel Bisulfate 75 MG TAB PO SCH (09:45)
[2019-02-09] MEDS: Enoxaparin Sodium 40 MG/0.4 ML SYRINGE SC SCH (09:45)
[2019-02-09] MEDS: Famotidine 20 MG TAB PO SCH ×2 (09:45→21:11)
[2019-02-09] MEDS: Lisinopril 10 MG TAB PO SCH (09:46)
[2019-02-09] MEDS: Saccharomyces boulardii 250 MG CAP PO SCH (09:47)
[2019-02-09] MEDS: Metoprolol Tartrate 25 MG TAB PO SCH ×2 (09:47→21:11)
[2019-02-09] MEDS: Cepastat Lozenges 1 LOZ PO PRN (09:55)
[2019-02-09] MEDS: HYDROcodone/Acetaminophen 5/325 mg Tablet PO PRN ×2 (09:57→21:14)
--- NOTE | 2019-02-09 10:32 | PDOC.MOPN ---
Interval History: No change in secretions, dysphagia. Denies pain - Vital Signs Vital Signs: Vital Signs (12 hours) Temp Pulse Resp BP BP BP Pulse Ox 02/09/19 09:46 122/83 02/09/19 09:45 83 122/83 02/09/19 09:34 97.5 F L 83 22 H 122/83 89 L 02/09/19 07:15 88 22 H 94 L 02/09/19 07:11 89 22 H 94 L 02/09/19 04:00 98.2 F 64 17 166/81 H 93 L Weight Admit Weight 212 lb Weight 214 lb - Physical Exam General: Alert, Oriented x3, No acute distress HEENT: Atraumatic (cervical lymphadenopathy), PERRLA, EOMI, Mucous membr. moist/ pink, Other Cardiovascular: Regular rate, Normal S1, Normal S2, No murmurs, Gallops, Rubs Abdomen: Normal bowel sounds, Soft, No tenderness, No hepatospenomegaly, No masses Extremities: No clubbing, No cyanosis, No edema, Normal pulses, No tenderness/ swelling Skin: No rashes, No breakdown, No significant lesion Neurological: Normal gait, Normal speech, Strength at 5/5 X4 ext, Normal tone, Sensation intact, Cranial nerves 3-12 NL, Reflexes 2+ Psych/Mental Status: Mental status NL, Mood NL - Labs Result Diagrams: 02/06/19 08:05 02/06/19 08:05 Status: lab reviewed by me A/P - Problem (1) Lung cancer Current Visit: Yes Code(s): C34.90 - MALIGNANT NEOPLASM OF UNSP PART OF UNSP BRONCHUS OR LUNG Status: Acute (2) Acute bronchitis Current Visit: Yes Code(s): J20.9 - ACUTE BRONCHITIS, UNSPECIFIED Status: Acute Qualifiers: Bronchitis organism: unspecified organism Qualified Code(s): J20.9 - Acute bronchitis, unspecified (3) Adenocarcinoma, lung Current Visit: Yes Code(s): C34.90 - MALIGNANT NEOPLASM OF UNSP PART OF UNSP BRONCHUS OR LUNG Status: Acute - Plan Plan: Continue supportive care Expect WBC to drop over the next few days Home when improved dysphagia, ok with Pulmonary
--- NOTE | 2019-02-09 13:36 | PRG ---
DATE OF SERVICE: 02/09/2019 SUBJECTIVE: Eddie Jennings did well overnight. I would be surprised if one of his vocal cords is not dysfunctional secondary to his cervical lymphadenopathy. He is still able to handle his secretions. He actually might benefit from a scopolamine patch. OBJECTIVE: VITAL SIGNS: He is afebrile, heart rate 80, respiratory rate 18, and blood pressure 122/83. LUNGS: Clear. HEART: Regular rhythm. ABDOMEN: Soft. IMPRESSION: Stage IV adenocarcinoma, status post chemo. We will add scopolamine patch for his upper airway secretions. Job ID: [id number]
[2019-02-09] MEDS ORDERED: Scopolamine 1.5 mg/72 hour Patch TD SCH (14:00)
--- NOTE | 2019-02-09 17:46 | PDOC.HOSPP ---
- Subjective Encounter Date: 02/09/19 Encounter Time: 15:00 Subjective: Mr. Jennings was seen today in follow-up of Lung cancer and acute respiratory failure. He is very sleeping during the encounter. He says he is breathing better. He denies chest pain. - Objective Vital Signs & Weight: Vital Signs (12 hours) Temp Pulse Resp BP BP BP Pulse Ox 02/09/19 16:21 97.6 F 65 18 135/96 H 96 02/09/19 14:00 83 20 94 L 02/09/19 13:12 97.6 F 76 18 126/70 90 L 02/09/19 10:38 79 20 92 L 02/09/19 09:46 122/83 02/09/19 09:45 83 122/83 02/09/19 09:34 97.5 F L 83 22 H 122/83 89 L 02/09/19 08:00 89 L 02/09/19 07:15 88 22 H 94 L 02/09/19 07:11 89 22 H 94 L Weight Admit Weight 212 lb Weight 214 lb I&O: 02/08/19 02/09/19 02/10/19 06:59 06:59 06:59 Intake Total 2255.64 1485 Output Total 550 1180 Balance 1705.64 305 Result Diagrams: 02/06/19 08:05 02/06/19 08:05 ROS - Medication Medications: Active Medications Generic Name Dose Route Start Last Admin Trade Name Freq PRN Reason Stop Dose Admin Acetaminophen 650 mg 01/27/19 08:05 01/28/19 21:59 Tylenol PO 650 mg Q4H PRN Administration Headache/Fever/Mild Pain (1-3) Hydrocodone Bitart/Acetaminophen 1 tab 02/06/19 21:16 02/09/19 09:57 [place] 5/325 PO 1 tab Q4H PRN Administration Moderate Pain (4-6) Aspirin 81 mg 01/28/19 09:00 02/09/19 09:44 Ecotrin PO 81 mg DAILY FLOR Administration Atorvastatin Calcium 80 mg 01/27/19 21:00 02/08/19 20:41 Lipitor PO 80 mg HS FLOR Administration Clonidine 0.1 mg 01/27/19 08:05 01/31/19 17:36 Catapres PO 0.1 mg Q4H PRN Administration SBP Greater Than 170 Clopidogrel Bisulfate 75 mg 01/28/19 09:00 02/09/19 09:45 Plavix PO 75 mg DAILY FLOR Administration Cyanocobalamin 1,000 mcg 02/07/19 15:00 02/07/19 14:51 Vitamin B-12 SC 1,000 mcg WILLCALL LFOR Administration Diltiazem HCl 120 mg 02/06/19 21:00 02/09/19 09:45 Cardizem Cd PO 120 mg BID FLOR Administration Enoxaparin Sodium 40 mg 01/27/19 09:00 02/09/19 09:45 Lovenox SC 40 mg 0900 FLOR Administration Famotidine 20 mg 01/27/19 09:00 02/09/19 09:45 Pepcid PO 20 mg BID FLOR Administration Folic Acid 1 mg 02/08/19 09:00 02/09/19 09:45 Folvite PO 1 mg DAILY FLOR Administration Guaifenesin 200 mg 01/27/19 08:05 02/03/19 15:49 Robitussin Sf PO 200 mg Q4H PRN Administration Cough Guaifenesin 1,200 mg 01/30/19 21:00 02/09/19 09:45 Mucinex PO 1,200 mg Q12HR FLOR Administration Hydralazine HCl 10 mg 01/27/19 08:05 01/28/19 12:07 Apresoline SLOW IVP 10 mg Q4H PRN Administration SBP > 180 and HR < 70 Ipratropium [place] 2.5 ml 02/02/19 22:30 02/09/19 14:00 Atrovent NEB 2.5 ml [id number] FLOR Administration Ipratropium [place] 0 ml 02/04/19 15:00 02/09/19 14:42 Atrovent 0.06% Nasal Inhaler NASAL 1 spr TID FLOR Administration Lisinopril 10 mg 01/28/19 09:00 02/09/19 09:46 Zestril PO 10 mg DAILY FLOR Administration Metoprolol Tartrate 25 mg 01/28/19 21:00 02/09/19 09:47 Lopressor PO 25 mg BID FLOR Administration Mometasone Furoate/Formoterol Fumar 2 puff 01/28/19 18:30 02/09/19 07:11 Dulera 200 Mcg/5 Mcg Inhaler INH 2 puff BID-RT FLOR Administration Nicotine 21 mg 01/27/19 08:05 01/27/19 12:48 Nicoderm Patch TD 21 mg Q24H PRN Administration Smoking Cessation Nitroglycerin 0.4 mg 01/27/19 14:58 02/08/19 12:15 Nitrostat SL 1 tab Q5MIN PRN Administration Chest Pain Oxymetazoline HCl 0 sprays 02/04/19 12:34 02/05/19 01:28 Oxymetazoline Hcl NASAL 1 spr BIDPRN PRN Administration Nasal Congestion Prednisone 40 mg 02/05/19 08:00 02/09/19 09:44 Prednisone PO 40 mg QAM-WM FLOR Administration Saccharomyces Boulardii 250 mg 01/27/19 09:00 02/09/19 09:47 Florastor PO 250 mg DAILY FLOR Administration Scopolamine 1.5 mg 02/09/19 14:00 02/09/19 14:39 Transderm Scop TD 1.5 mg Q3D FLOR Administration Sodium Chloride 10 ml 02/02/19 09:00 02/09/19 09:47 Flush - Normal Saline IVF 10 ml Q12HR FLOR Administration Sodium Chloride 10 ml 02/02/19 07:18 02/08/19 20:43 Flush - Normal Saline IVF 10 ml PRN PRN Administration Saline Flush Throat Lozenges 1 tayo 01/27/19 08:05 02/09/19 09:55 Cepastat Lozenges PO 1 tayo Q2H PRN Administration Sore Throat Zolpidem Tartrate 5 mg 01/27/19 08:05 02/06/19 21:36 Ambien PO 5 mg HSPRN PRN Administration Insomnia - Exam Eye: PERRL, anicteric sclera Heart: RRR, no murmur, no gallops, no rubs Respiratory: rhonchi (+ bilateral wheezing and rhonchi throughout), wheezes Gastrointestinal: soft, non-tender, non-distended, normal bowel sounds Extremities: 1+ LE edema (trace pedal edema) Hosp A/P (1) Adenocarcinoma, lung Code(s): C34.90 - MALIGNANT NEOPLASM OF UNSP PART OF UNSP BRONCHUS OR LUNG Status: Acute (2) Acute hypoxemic respiratory failure Code(s): J96.01 - ACUTE RESPIRATORY FAILURE WITH HYPOXIA Status: Acute (3) CKD (chronic kidney disease), stage II Code(s): N18.2 - CHRONIC KIDNEY DISEASE, STAGE 2 (MILD) Status: Chronic (4) Hypertension Code(s): I10 - ESSENTIAL (PRIMARY) HYPERTENSION Status: Chronic Qualifiers: Hypertension type: essential hypertension Qualified Code(s): I10 - Essential (primary) hypertension (5) Atrial fibrillation Code(s): I48.91 - UNSPECIFIED ATRIAL FIBRILLATION Status: Acute - Plan * Acute respiratory failure- continue supportive care with duonebs, and steroids * Adenocarcinoma of the lung- continue chemotherapy * HTN- blood pressure is stable * AFIB- his heart rate is stable * No anticoagulation
[2019-02-09] MEDS: Atorvastatin Calcium 40 MG TAB PO SCH (21:10)
[2019-02-09] MEDS: cloNIDine 0.1 MG TAB PO PRN (21:14)
[2019-02-10] MEDS: Ipratropium Bromide 2.5 ml Neb NEB SCH ×6 (02:30→22:33)
[2019-02-10] MEDS: predniSONE 20 MG TAB PO SCH (09:21)
[2019-02-10] MEDS: Enoxaparin Sodium 40 MG/0.4 ML SYRINGE SC SCH (09:21)
[2019-02-10] MEDS: Aspirin 81 mg Enteric Coated Tablet PO SCH (09:22)
[2019-02-10] MEDS: Lisinopril 10 MG TAB PO SCH ×2 (09:22→12:24)
[2019-02-10] MEDS: Famotidine 20 MG TAB PO SCH ×2 (09:22→21:20)
[2019-02-10] MEDS: Mometasone/Formoterol 120 PUFF INHALER INH SCH ×2 (09:22→19:15)
[2019-02-10] MEDS: Clopidogrel Bisulfate 75 MG TAB PO SCH (09:22)
[2019-02-10] MEDS: Saccharomyces boulardii 250 MG CAP PO SCH (09:23)
[2019-02-10] MEDS: Ipratropium Bromide 0.06% Nasal Inhaler 15ml NASAL SCH ×2 (09:23→18:05)
[2019-02-10] MEDS: Folic Acid 1 MG TAB PO SCH (09:23)
[2019-02-10] MEDS: guaiFENesin ER 600 MG TAB PO SCH ×2 (09:23→21:20)
[2019-02-10] MEDS: Metoprolol Tartrate 25 MG TAB PO SCH ×3 (09:23→21:19)
--- NOTE | 2019-02-10 15:56 | PDOC.MOPN ---
Interval History: No change in swelling, secretions. - Vital Signs Vital Signs: Vital Signs (12 hours) Temp Pulse Resp BP BP BP Pulse Ox 02/10/19 12:24 63 184/98 H 02/10/19 11:15 97.8 F 63 18 141/87 H 94 L 02/10/19 09:22 68 16 02/10/19 09:13 68 16 02/10/19 07:45 98.9 F 98 20 100/60 91 L 02/10/19 07:40 94 L 02/10/19 04:00 98.6 F 68 23 H 131/82 94 L Weight Admit Weight 212 lb Weight 216 lb 14.958 oz - Physical Exam General: Alert, Oriented x3, No acute distress HEENT: Other Lungs: Other Cardiovascular: Regular rate Abdomen: Normal bowel sounds Extremities: No edema Skin: No rashes Neurological: Normal speech Psych/Mental Status: Mental status NL - Labs Result Diagrams: 02/06/19 08:05 02/06/19 08:05 Status: lab reviewed by me A/P - Problem (1) Lung cancer Current Visit: Yes Code(s): C34.90 - MALIGNANT NEOPLASM OF UNSP PART OF UNSP BRONCHUS OR LUNG Status: Acute (2) Acute bronchitis Current Visit: Yes Code(s): J20.9 - ACUTE BRONCHITIS, UNSPECIFIED Status: Acute Qualifiers: Bronchitis organism: unspecified organism Qualified Code(s): J20.9 - Acute bronchitis, unspecified (3) Adenocarcinoma, lung Current Visit: Yes Code(s): C34.90 - MALIGNANT NEOPLASM OF UNSP PART OF UNSP BRONCHUS OR LUNG Status: Acute - Plan Plan: Continue supportive care Monitor CBC Home when improved dysphagia, ok with Pulmonary
--- NOTE | 2019-02-10 16:07 | PDOC.HOSPP ---
- Subjective Encounter Date: 02/10/19 Encounter Time: 10:15 Subjective: Mr. Jennings was seen today in follow-up of Lung cancer, and respiratory failure. He is again very sleepy. He appears at bit dyspneic, however he denies having any problems. He also tells me he is swallowing better. - Objective Vital Signs & Weight: Vital Signs (12 hours) Temp Pulse Resp BP BP Pulse Ox 02/10/19 12:24 63 184/98 H 02/10/19 11:15 97.8 F 63 18 141/87 H 94 L 02/10/19 09:22 68 16 02/10/19 09:13 68 16 02/10/19 07:45 98.9 F 98 20 100/60 91 L 02/10/19 07:40 94 L Weight Admit Weight 212 lb Weight 216 lb 14.958 oz I&O: 02/09/19 02/10/19 02/11/19 06:59 06:59 06:59 Intake Total 1485 1100 Output Total 1180 Balance 305 1100 Result Diagrams: 02/06/19 08:05 02/06/19 08:05 ROS - Medication Medications: Active Medications Generic Name Dose Route Start Last Admin Trade Name Freq PRN Reason Stop Dose Admin Acetaminophen 650 mg 01/27/19 08:05 01/28/19 21:59 Tylenol PO 650 mg Q4H PRN Administration Headache/Fever/Mild Pain (1-3) Hydrocodone Bitart/Acetaminophen 1 tab 02/06/19 21:16 02/09/19 21:14 [place] 5/325 PO 1 tab Q4H PRN Administration Moderate Pain (4-6) Aspirin 81 mg 01/28/19 09:00 02/10/19 09:22 Ecotrin PO 81 mg DAILY FLOR Administration Atorvastatin Calcium 80 mg 01/27/19 21:00 02/09/19 21:10 Lipitor PO 80 mg HS FLOR Administration Clonidine 0.1 mg 01/27/19 08:05 02/09/19 21:14 Catapres PO 0.1 mg Q4H PRN Administration SBP Greater Than 170 Clopidogrel Bisulfate 75 mg 01/28/19 09:00 02/10/19 09:22 Plavix PO 75 mg DAILY FLOR Administration Cyanocobalamin 1,000 mcg 02/07/19 15:00 02/07/19 14:51 Vitamin B-12 SC 1,000 mcg WILLCALL [facility] Administration Diltiazem HCl 120 mg 02/06/19 21:00 02/10/19 12:24 Cardizem Cd PO 120 mg BID FLOR Administration Enoxaparin Sodium 40 mg 01/27/19 09:00 02/10/19 09:21 Lovenox SC 40 mg 0900 FLOR Administration Famotidine 20 mg 01/27/19 09:00 02/10/19 09:22 Pepcid PO 20 mg BID [facility]1983 Administration Folic Acid 1 mg 02/08/19 09:00 02/10/19 09:23 Folvite PO 1 mg DAILY [facility] Administration Guaifenesin 200 mg 01/27/19 08:05 02/03/19 15:49 Robitussin Sf PO 200 mg Q4H PRN Administration Cough Guaifenesin 1,200 mg 01/30/19 21:00 02/10/19 09:23 Mucinex PO 1,200 mg Q12HR FLOR Administration Hydralazine HCl 10 mg 01/27/19 08:05 01/28/19 12:07 Apresoline SLOW IVP 10 mg Q4H PRN Administration SBP > 180 and HR < 70 Ipratropium [place] 2.5 ml 02/02/19 22:30 02/10/19 10:48 Atrovent NEB Not Given B2QC-IT [facility], [facility] Ipratropium [place] 0 ml 02/04/19 15:00 02/10/19 09:23 Atrovent 0.06% Nasal Inhaler NASAL 1 spr TID [facility]1983 Administration Lisinopril 10 mg 01/28/19 09:00 02/10/19 12:24 Zestril PO 10 mg DAILY [facility] Administration Metoprolol Tartrate 25 mg 01/28/19 21:00 02/10/19 12:25 Lopressor PO 25 mg BID [facility] Administration Mometasone Furoate/Formoterol Fumar 2 puff 01/28/19 18:30 02/10/19 09:22 Dulera 200 Mcg/5 Mcg Inhaler INH 2 puff BID-RT [facility] Administration Nicotine 21 mg 01/27/19 08:05 01/27/19 12:48 Nicoderm Patch TD 21 mg Q24H PRN Administration Smoking Cessation Nitroglycerin 0.4 mg 01/27/19 14:58 02/08/19 12:15 Nitrostat SL 1 tab Q5MIN PRN Administration Chest Pain Oxymetazoline HCl 0 sprays 02/04/19 12:34 02/05/19 01:28 Oxymetazoline Hcl NASAL 1 spr BIDPRN PRN Administration Nasal Congestion Prednisone 40 mg 02/05/19 08:00 02/10/19 09:21 Prednisone PO 40 mg QAM-WM FLOR Administration Saccharomyces Boulardii 250 mg 01/27/19 09:00 02/10/19 09:23 Florastor PO 250 mg DAILY FLOR Administration Scopolamine 1.5 mg 02/09/19 14:00 02/09/19 14:39 Transderm Scop TD 1.5 mg Q3D FLOR Administration Sodium Chloride 10 ml 02/02/19 09:00 02/10/19 09:23 Flush - Normal Saline IVF 10 ml Q12HR FLOR Administration Sodium Chloride 10 ml 02/02/19 07:18 02/08/19 20:43 Flush - Normal Saline IVF 10 ml PRN PRN Administration Saline Flush Throat Lozenges 1 tayo 01/27/19 08:05 02/09/19 09:55 Cepastat Lozenges PO 1 tayo Q2H PRN Administration Sore Throat Zolpidem Tartrate 5 mg 01/27/19 08:05 02/06/19 21:36 Ambien PO 5 mg HSPRN PRN Administration Insomnia - Exam Eye: PERRL Heart: RRR, no murmur, no gallops, no rubs Respiratory: rhonchi, wheezes (+ coarse rhonchi and wheezing bilaterally) Gastrointestinal: soft, non-tender, non-distended, normal bowel sounds Hosp A/P (1) Adenocarcinoma, lung Code(s): C34.90 - MALIGNANT NEOPLASM OF UNSP PART OF UNSP BRONCHUS OR LUNG Status: Acute (2) Acute hypoxemic respiratory failure Code(s): J96.01 - ACUTE RESPIRATORY FAILURE WITH HYPOXIA Status: Acute (3) CKD (chronic kidney disease), stage II Code(s): N18.2 - CHRONIC KIDNEY DISEASE, STAGE 2 (MILD) Status: Chronic (4) Hypertension Code(s): I10 - ESSENTIAL (PRIMARY) HYPERTENSION Status: Chronic Qualifiers: Hypertension type: essential hypertension Qualified Code(s): I10 - Essential (primary) hypertension (5) Atrial fibrillation Code(s): I48.91 - UNSPECIFIED ATRIAL FIBRILLATION Status: Acute - Plan * Acute respiratory failure- continue supportive care with duonebs, and steroids * Adenocarcinoma of the lung- continue chemotherapy * HTN- blood pressure is stable * AFIB- his heart rate is stable * No anticoagulation
[2019-02-10] MEDS: Atorvastatin Calcium 40 MG TAB PO SCH (21:20)
[2019-02-11] MEDS: Ipratropium Bromide 2.5 ml Neb NEB SCH ×6 (02:32→22:44)
[2019-02-11] MEDS: Ipratropium Bromide 0.06% Nasal Inhaler 15ml NASAL SCH ×2 (02:41→09:45)
[2019-02-11] MEDS: Mometasone/Formoterol 120 PUFF INHALER INH SCH ×2 (07:06→18:45)
[2019-02-11] MEDS: Saccharomyces boulardii 250 MG CAP PO SCH (09:42)
[2019-02-11] MEDS: Enoxaparin Sodium 40 MG/0.4 ML SYRINGE SC SCH (09:42)
[2019-02-11] MEDS: Aspirin 81 mg Enteric Coated Tablet PO SCH (09:42)
[2019-02-11] MEDS: Famotidine 20 MG TAB PO SCH ×2 (09:43→19:40)
[2019-02-11] MEDS: Lisinopril 10 MG TAB PO SCH (09:43)
[2019-02-11] MEDS: Folic Acid 1 MG TAB PO SCH (09:43)
[2019-02-11] MEDS: predniSONE 20 MG TAB PO SCH (09:43)
[2019-02-11] MEDS: guaiFENesin ER 600 MG TAB PO SCH ×2 (09:43→19:40)
[2019-02-11] MEDS: Metoprolol Tartrate 25 MG TAB PO SCH ×2 (09:43→19:40)
[2019-02-11] MEDS: Clopidogrel Bisulfate 75 MG TAB PO SCH (09:43)
[2019-02-11] MEDS ORDERED: Heparin 10,000 UNITS/ 10 ML VIAL ONE (12:22)
[2019-02-11 13:18] LABS: Actual Bicarbonate (HCO3a) 14.7 mEq/L (22-28); Base Excess (BEa) -12.4 mEq/L (-2.0 to +3.0); CO2 Tension 37.4 mmHg (35.0-45.0); Hemoglobin (Hb) 13.4 g/dL (14.0-18.0); O2 Tension (PaO2) 73.9 mmHg (> 80.0); pH, Arterial 7.21 (7.35-7.45)
[2019-02-11 13:19] LABS: Calcium, Ionized 0.93 mmol/L (1.12-1.30); Carboxyhemoglobin (COHb) 0.6 gm% (0.0-3.0); Potassium - ABG Lab 7.38 mmol/L (3.70-5.30)
[2019-02-11 13:20] LABS: Analyzer IN Cardio OR; Puncture Site LRA
[2019-02-11] MEDS ORDERED: Dexamethasone 4 mg/ml Vial SLOW IVP SCH (14:40)
--- NOTE | 2019-02-11 14:56 | RAD ---
EXAM: Single view of the chest HISTORY: Acute respiratory distress COMPARISON: 02/03/2019 FINDINGS: Single view of the chest shows a normal sized cardiomediastinal silhouette. The Mediport i s unchanged in position. Wedgelike opacity is seen in the right lung which may represent right middle lobe atelectasis. Degenerative changes are seen in the spine. IMPRESSION: Right middle lobe atelectasis
--- NOTE | 2019-02-11 15:17 | PRG ---
DATE OF SERVICE: 02/11/2019 SUBJECTIVE: Dr. Zapien called me earlier today stating the patient had developed significant lethargy and looked bad. He did a blood gas, which showed significant metabolic acidosis. The patient subsequently was transferred to the [facility] for initiation of bicarbonate drip. He was found to have labored respirations once he arrived over here and the respiratory therapist appropriately put him on BiPAP to see if that would help. OBJECTIVE: VITAL SIGNS: Currently, pulse is 57, O2 saturation 100%, respiratory rate 20, blood pressure 120/68. GENERAL: The patient is obese, black male, who looks comfortable, now on BiPAP. HEENT: Facial and neck swelling. NECK: Diffuse lymphadenopathy. LUNGS: Coarse upper airway breath sounds radiating to the neck. CARDIAC: S1 and S2. Regular. ABDOMEN: Obese, soft, nontender. EXTREMITIES: No clubbing, cyanosis, or edema. LABORATORY DATA: ABG; pH 7.21, pCO2 of 37, pO2 of 73. X-ray is pending. ASSESSMENT: 1. Metastatic adenocarcinoma with neck involvement. 2. Metabolic acidosis. 3. Generalized failure to thrive. PLAN: 1. With change in status, the biggest concern is his airway. We will try BiPAP and see how he does. He ultimately may have to be intubated. 2. Check chest x-ray. 3. Would initiate empiric antibiotics for sepsis and draw appropriate cultures given recent chemotherapy. Job ID: [id number]
[2019-02-11 16:12] LABS: Anion Gap 33 mmol/L (10-20); Band 3 % (5-11); Calc. Creatinine Clearance 11 mL/min (70-130); Calcium 7.5 mg/dL (7.8-10.44); Carbon Dioxide 14 mmol/L (23-31); Chloride 95 mmol/L (98-107); Estimated GFR-MDRD 7; Glucose 108 mg/dL (80-115); Hemoglobin 13.7 g/dL (14.0-18.0); Lymphocytes 2 % (21-51); MDiff Complete? YES; Mean Corpuscular HGB CONC 32.5 g/dL (32.0-36.0); Mean Corpuscular Hemoglobin 29.2 pg (27.0-31.0); Mean Corpuscular Volume 89.8 fL (78.0-98.0); Mean Platelet Volume 9.5 fL (7.4-10.4); Monocytes 1 % (0-10); Neutrophil 94 % (42-75); Platelet Count 164 thou/uL (130-400); Platelet Morphology Comment Appears Adequate; RBC Distribution Width 14.4 % (11.5-14.5); Sodium 134 mmol/L (136-145); White Blood Cell (WBC) Count 15.8 thou/uL (4.8-10.8)
[2019-02-11] MEDS: Sodium Bicarbonate 150 MEQ in Dextrose 5% in Water 1,000 ML IV SCH (16:12)
[2019-02-11 16:24] LABS: BUN (Urea Nitrogen) 171 mg/dL (8.4-25.7)
[2019-02-11 16:25] LABS: Critical Call Chem-Lactate @nurse to call back me / code green; Lactic Acid 5.8 mmol/L (0.5-2.2)
[2019-02-11 16:27] LABS: Potassium 7.8 mmol/L (3.5-5.1)
[2019-02-11] MEDS ORDERED: fentaNYL Citrate/PF 2,000 MCG in Sodium Chloride 0.9% 60 ML IV SCH (16:29)
[2019-02-11] MEDS ORDERED: Norepinephrine 8 MG/250 ML BAG IVPB PRN (16:55)
[2019-02-11] MEDS: Piperacillin/Tazobactam 2.25 GM in Sodium Chloride 0.9% 100 ML IVPB SCH (17:00)
[2019-02-11] MEDS ORDERED: Sodium Bicarb 50 MEQ/50 ML Abboject 8.4% SYRINGE ONE (17:00)
[2019-02-11] MEDS ORDERED: Calcium Chloride 1 GM/10 ML Abboject SYRINGE ONE (17:00)
[2019-02-11] MEDS ORDERED: Rocuronium Bromide 10 MG/ML (10ML VIAL) ONE (17:00)
[2019-02-11] MEDS ORDERED: EPINEPHrine 1 MG/10 ML Abboject SYRINGE ONE (17:00)
--- NOTE | 2019-02-11 17:13 | PDOC.HOSPP ---
- Subjective Encounter Date: 02/11/19 Encounter Time: 11:45 Subjective: Mr. Jennings was seen today in follow-up of acute respiratory failure and stage 4 lung cancer. He was seen earlier today and again this afternoon. He was noted to have some hemoptysis last night, and was much more agitated. He was having trouble sleeping. He was moved to the [facility] due to concern for encephalopathy and worsening respiratory status. Lab work was drawn. He was placed on Bipap, and seemed to lilia, then developed respiratory distress. He has been intubated and moved to the ICU.L - Objective Vital Signs & Weight: Vital Signs (12 hours) Temp Pulse Resp BP BP Pulse Ox 02/11/19 15:47 96.0 F L 02/11/19 15:04 57 L 02/11/19 15:00 56 L 27 H 99 02/11/19 11:40 72 16 02/11/19 09:43 72 130/83 02/11/19 08:00 97.3 F L 72 20 110/60 97 02/11/19 07:06 78 16 02/11/19 06:55 78 16 Weight Admit Weight 212 lb Weight 216 lb 4.8 oz I&O: 02/10/19 02/11/19 02/12/19 06:59 06:59 06:59 Intake Total 1100 180 Output Total 320 Balance 1100 -140 Result Diagrams: 02/11/19 15:43 02/11/19 15:43 ROS - Medication Medications: Active Medications Generic Name Dose Route Start Last Admin Trade Name Freq PRN Reason Stop Dose Admin Acetaminophen 650 mg 01/27/19 08:05 01/28/19 21:59 Tylenol PO 650 mg Q4H PRN Administration Headache/Fever/Mild Pain (1-3) Hydrocodone Bitart/Acetaminophen 1 tab 02/06/19 21:16 02/09/19 21:14 [place] 5/325 PO 1 tab Q4H PRN Administration Moderate Pain (4-6) Aspirin 81 mg 01/28/19 09:00 02/11/19 09:42 Ecotrin PO 81 mg DAILY FLOR Administration Atorvastatin Calcium 80 mg 01/27/19 21:00 02/10/19 21:20 Lipitor PO 80 mg HS FLOR Administration Clonidine 0.1 mg 01/27/19 08:05 02/09/19 21:14 Catapres PO 0.1 mg Q4H PRN Administration SBP Greater Than 170 Clopidogrel Bisulfate 75 mg 01/28/19 09:00 02/11/19 09:43 Plavix PO 75 mg DAILY FLOR Administration Cyanocobalamin 1,000 mcg 02/07/19 15:00 02/07/19 14:51 Vitamin B-12 SC 1,000 mcg WILLCALL FLOR Administration Diltiazem HCl 120 mg 02/06/19 21:00 02/11/19 09:43 Cardizem Cd PO 120 mg BID FLOR Administration Famotidine 20 mg 01/27/19 09:00 02/11/19 09:43 Pepcid PO 20 mg BID FLOR Administration Folic Acid 1 mg 02/08/19 09:00 02/11/19 09:43 Folvite PO 1 mg DAILY FLOR Administration Guaifenesin 200 mg 01/27/19 08:05 02/03/19 15:49 Robitussin Sf PO 200 mg Q4H PRN Administration Cough Guaifenesin 1,200 mg 01/30/19 21:00 02/11/19 09:43 Mucinex PO 1,200 mg Q12HR FLOR Administration Hydralazine HCl 10 mg 01/27/19 08:05 01/28/19 12:07 Apresoline SLOW IVP 10 mg Q4H PRN Administration SBP > 180 and HR < 70 Sodium Bicarbonate 150 meq/ 1,150 mls @ 100 mls/hr 02/11/19 13:30 02/11/19 16 :12 Dextrose/Water IV 1,150 mls .[id number] FLOR Administration Ipratropium [place] 2.5 ml 02/02/19 22:30 02/11/19 15:00 Atrovent NEB 2.5 ml [id number] FLOR Administration Ipratropium [place] 0 ml 02/04/19 15:00 02/11/19 09:45 Atrovent 0.06% Nasal Inhaler NASAL 1 spr TID FLOR Administration Metoprolol Tartrate 25 mg 01/28/19 21:00 02/11/19 09:43 Lopressor PO 25 mg BID FLOR Administration Mometasone Furoate/Formoterol Fumar 2 puff 01/28/19 18:30 02/11/19 07:06 Dulera 200 Mcg/5 Mcg Inhaler INH 2 puff BID-RT FLOR Administration Nicotine 21 mg 01/27/19 08:05 01/27/19 12:48 Nicoderm Patch TD 21 mg Q24H PRN Administration Smoking Cessation Nitroglycerin 0.4 mg 01/27/19 14:58 02/08/19 12:15 Nitrostat SL 1 tab Q5MIN PRN Administration Chest Pain Oxymetazoline HCl 0 sprays 02/04/19 12:34 02/05/19 01:28 Oxymetazoline Hcl NASAL 1 spr BIDPRN PRN Administration Nasal Congestion Saccharomyces Boulardii 250 mg 01/27/19 09:00 02/11/19 09:42 Florastor PO 250 mg DAILY FLOR Administration Scopolamine 1.5 mg 02/09/19 14:00 02/09/19 14:39 Transderm Scop TD 1.5 mg Q3D FLOR Administration Sodium Chloride 10 ml 02/02/19 09:00 02/11/19 09:44 Flush - Normal Saline IVF 10 ml Q12HR FLOR Administration Sodium Chloride 10 ml 02/02/19 07:18 02/08/19 20:43 Flush - Normal Saline IVF 10 ml PRN PRN Administration Saline Flush Throat Lozenges 1 tayo 01/27/19 08:05 02/09/19 09:55 Cepastat Lozenges PO 1 tayo Q2H PRN Administration Sore Throat Zolpidem Tartrate 5 mg 01/27/19 08:05 02/06/19 21:36 Ambien PO 5 mg HSPRN PRN Administration Insomnia - Exam Eye: PERRL, anicteric sclera Heart: RRR, no murmur, no gallops, no rubs Respiratory: rhonchi Gastrointestinal: soft, non-tender, non-distended, normal bowel sounds, no palpable masses, no hepatomegaly Extremities: no cyanosis, no clubbing, no edema Psychiatric: normal affect Hosp A/P (1) Adenocarcinoma, lung Code(s): C34.90 - MALIGNANT NEOPLASM OF UNSP PART OF UNSP BRONCHUS OR LUNG Status: Acute (2) Acute hypoxemic respiratory failure Code(s): J96.01 - ACUTE RESPIRATORY FAILURE WITH HYPOXIA Status: Acute (3) CKD (chronic kidney disease), stage II Code(s): N18.2 - CHRONIC KIDNEY DISEASE, STAGE 2 (MILD) Status: Chronic (4) Hypertension Code(s): I10 - ESSENTIAL (PRIMARY) HYPERTENSION Status: Chronic Qualifiers: Hypertension type: essential hypertension Qualified Code(s): I10 - Essential (primary) hypertension (5) Atrial fibrillation Code(s): I48.91 - UNSPECIFIED ATRIAL FIBRILLATION Status: Acute (6) Acute on chronic kidney failure Code(s): N17.9 - ACUTE KIDNEY FAILURE, UNSPECIFIED; N18.9 - CHRONIC KIDNEY DISEASE, UNSPECIFIED Status: Acute (7) Respiratory failure Code(s): J96.90 - RESPIRATORY FAILURE, UNSP, UNSP W HYPOXIA OR HYPERCAPNIA Status: Acute - Plan * Acute respiratory failure- patient has been intubated, and Pulmonology re- consulted * Hyperkalemia- due to acute on chronic kidney disease- Nephrology has been consulted for urgent dialysis * Metabolic acidosis- may be due to renal failure, or could be due to sepsis- agree with empiric antibiotics, and cultures * Acute kidney injury- may be due to pre-renal azotemia- Nephrology has been consulted, and lisinopril has been discontinued * Adenocarcinoma of the lung-stage 4 - chemotherapy may need to be placed on hold- will defer to Oncology * AFIB- his heart rate is stable * Case discussed with the patient's common law , and son who were present, and all questions answered.
[2019-02-11 17:20] LABS: Actual Bicarbonate (HCO3a) 15.8 mEq/L (22-28); Base Excess (BEa) -16.2 mEq/L (-2.0 to +3.0); CO2 Tension 67.5 mmHg (35.0-45.0); Calcium, Ionized 1.02 mmol/L (1.12-1.30); Carboxyhemoglobin (COHb) 0.5 gm% (0.0-3.0); Hemoglobin (Hb) 12.6 g/dL (14.0-18.0); O2 Tension (PaO2) 57.4 mmHg (> 80.0); Potassium - ABG Lab 6.98 mmol/L (3.70-5.30); pH, Arterial 6.99 (7.35-7.45)
[2019-02-11 17:21] LABS: ALV-art Gradient 571.225 (0-20); Puncture Site RBA
[2019-02-11] MEDS ORDERED: Sodium Bicarb 50 MEQ/50 ML VIAL ONE (17:34)
[2019-02-11] MEDS ORDERED: Piperacillin/Tazobactam 3.375 GM in Sodium Chloride 0.9% 100 ML IVPB SCH (18:00)
--- NOTE | 2019-02-11 18:18 | OP ---
DATE OF PROCEDURE: 02/11/2019 PROCEDURE PERFORMED: Right femoral central line and right femoral arterial line. INDICATION: This patient has hypotension, poor IV access. DESCRIPTION OF PROCEDURE: These 2 procedures were done emergently because of need of aggressive hemodynamic monitoring for dialysis. The right femoral area was scrubbed with chlorhexidine and draped sterilely. Using the modified Seldinger technique, a right arterial femoral line was placed without difficulty. Using modified the Seldinger technique, a right femoral triple-lumen central line was placed in the femoral vein without difficulty. Three ports flushed of venous blood. Both lines were sutured into position. The patient tolerated the procedure well. Job ID: [id number]
[2019-02-11 18:41] LABS: HBSAg Index 0.46 S/CO (0-0.99); Hep B Surf Ag Non-Reactive S/CO (NonReactive)
[2019-02-11] MEDS: Dexamethasone 4 mg/ml Vial SLOW IVP SCH (18:46)
[2019-02-11] MEDS: EPINEPHrine 4 MG in Dextrose 5% in Water 250 ML IV SCH ×2 (19:28→22:54)
[2019-02-11] MEDS: Atorvastatin Calcium 40 MG TAB PO SCH (19:40)
[2019-02-11] MEDS: Norepinephrine 8 MG in Dextrose 5% in Water 242 ML IVPB PRN ×2 (19:43→21:54)
[2019-02-11 21:25] LABS: Actual Bicarbonate (HCO3a) 15.2 mEq/L (22-28); Base Excess (BEa) -9.1 mEq/L (-2.0 to +3.0); CO2 Tension 28.9 mmHg (35.0-45.0); Carboxyhemoglobin (COHb) 0.2 gm% (0.0-3.0); Hemoglobin (Hb) 14.1 g/dL (14.0-18.0); O2 Tension (PaO2) 128.1 mmHg (> 80.0); Potassium - ABG Lab 4.66 mmol/L (3.70-5.30); pH, Arterial 7.34 (7.35-7.45)
[2019-02-11 21:28] LABS: Puncture Site ALINE
[2019-02-11 21:29] LABS: ALV-art Gradient 548.775 (0-20)
[2019-02-12] MEDS: Dexamethasone 4 mg/ml Vial SLOW IVP SCH ×2 (00:38→07:28)
[2019-02-12] MEDS ORDERED: fentaNYL Citrate/PF 2,000 MCG in Sodium Chloride 0.9% 60 ML IV SCH (00:51)
[2019-02-12] MEDS ORDERED: DISCONTINUE PREVIOUS NARCOTIC PAIN MEDICATIONS AND BENZODIAZEPINES FS SCH (00:51)
[2019-02-12] MEDS ORDERED: Fentanyl BOLUS 250 ML IVPB PRN (00:51)
[2019-02-12] MEDS ORDERED: Propofol 1,000 MG/100 ML VIAL IV PRN (00:51)
[2019-02-12] MEDS ORDERED: Propofol BOLUS 1,000 MG/100 ML VIAL IV PRN (00:51)
[2019-02-12] MEDS ORDERED: Morphine 2 MG/ML SYRINGE SLOW IVP PRN (00:51)
[2019-02-12] MEDS ORDERED: Lorazepam 2 MG/ML VIAL SLOW IVP PRN (00:51)
[2019-02-12] MEDS: Piperacillin/Tazobactam 2.25 GM in Sodium Chloride 0.9% 100 ML IVPB SCH ×3 (02:11→17:52)
[2019-02-12] MEDS: Ipratropium Bromide 2.5 ml Neb NEB SCH ×2 (02:16→07:02)
[2019-02-12] MEDS: Norepinephrine 8 MG in Dextrose 5% in Water 242 ML IVPB PRN ×2 (03:19→07:26)
[2019-02-12] MEDS: Sodium Bicarbonate 150 MEQ in Dextrose 5% in Water 1,000 ML IV SCH ×2 (03:44→14:44)
[2019-02-12] MEDS: EPINEPHrine 4 MG in Dextrose 5% in Water 250 ML IV SCH ×6 (05:05→22:08)
[2019-02-12 05:09] VITALS: BMI 30.3
[2019-02-12 05:10] LABS: Band 6 % (5-11); Elliptocytes SLIGHT = 2-5 cells (100X) (0-1/hpf); Hemoglobin 13.4 g/dL (14.0-18.0); Lymphocytes 3 % (21-51); MDiff Complete? YES; Mean Corpuscular HGB CONC 32.4 g/dL (32.0-36.0); Mean Corpuscular Hemoglobin 28.3 pg (27.0-31.0); Mean Corpuscular Volume 87.5 fL (78.0-98.0); Mean Platelet Volume 9.6 fL (7.4-10.4); Monocytes 1 % (0-10); Neutrophil 90 % (42-75); Platelet Count 137 thou/uL (130-400); Platelet Morphology Comment Appears Adequate; RBC Distribution Width 14.5 % (11.5-14.5); Red Blood Cell (RBC) Count 4.75 mill/uL (4.70-6.10); White Blood Cell (WBC) Count 19.1 thou/uL (4.8-10.8)
[2019-02-12 05:12] LABS: Anion Gap 34 mmol/L (10-20); BUN (Urea Nitrogen) 112 mg/dL (8.4-25.7); Calc. Creatinine Clearance 14 mL/min (70-130); Calcium 6.8 mg/dL (7.8-10.44); Carbon Dioxide 13 mmol/L (23-31); Chloride 94 mmol/L (98-107); Estimated GFR-MDRD 9; Glucose 161 mg/dL (80-115); Potassium 6.5 mmol/L (3.5-5.1); Sodium 134 mmol/L (136-145)
[2019-02-12 06:52] LABS: Actual Bicarbonate (HCO3a) 12.8 mEq/L (22-28); Base Excess (BEa) -12.8 mEq/L (-2.0 to +3.0); Calcium, Ionized 0.81 mmol/L (1.12-1.30); Carboxyhemoglobin (COHb) 0.6 gm% (0.0-3.0); O2 Tension (PaO2) 108.7 mmHg (> 80.0); Potassium - ABG Lab 6.16 mmol/L (3.70-5.30); pH, Arterial 7.26 (7.35-7.45)
[2019-02-12 06:56] LABS: Puncture Site ALINE
[2019-02-12] MEDS: Mometasone/Formoterol 120 PUFF INHALER INH SCH ×2 (07:02→18:12)
[2019-02-12] MEDS: Ipratropium Bromide 0.06% Nasal Inhaler 15ml NASAL SCH (07:14)
[2019-02-12] MEDS ORDERED: Ventilator Sedation Protocol 1 EACH FS SCH (07:45)
--- NOTE | 2019-02-12 08:17 | PRG ---
DATE OF SERVICE: 02/12/2019 TIME SPENT: 45 minutes of critical care time. SUBJECTIVE: The patient survived the night. He is still requiring epinephrine and Levophed drips. He was able to do several hours of dialysis. OBJECTIVE: VITAL SIGNS: Temperature 100.0, pulse 68, blood pressure 110/58, on epinephrine at 20 mcg/minute and Levophed of 40 mcg/minute, also on a vasopressin and a bicarbonate drip. NEUROLOGICAL: He is poorly responsive, although his pupils are still constricting. HEENT: Remarkable for edema. NECK: Edematous. Adenopathy present. LUNGS: Coarse breath sounds. CARDIAC: S1 and S2, now regular. ABDOMEN: Distended. Bowel sounds absent. EXTREMITIES: Edematous throughout. LABORATORY DATA: White blood cell count 19.1, hemoglobin 13.4, hematocrit 41.6, and platelet count 137. PH of 7.26, pCO2 of 29, pO2 of 108 on assist-control rate 28, tidal volume 450, PEEP 5, and FiO2 of 70%. Sodium 134, potassium 6.5, chloride 94, CO2 of 13, BUN 112, creatinine 7.2, glucose 116, and calcium 6.8. Cultures at this point show no growth. IMAGING DATA: Chest x-ray demonstrates ET tube in good position. He has mass-like density in the right hilar region. He has a small right pleural effusion. ASSESSMENT: 1. Acute renal failure with severe metabolic acidosis. 2. Status post cardiopulmonary arrest. 3. Stage IV lung cancer. Apparently, now status post one round of chemotherapy. 4. Question of concurrent sepsis syndrome. 5. Shock. PLAN: This patient's prognosis is dismal for recovery. I am very concerned that he may have had a profound neurologic insult. Unfortunately, he is not stable enough to go downstairs for head CT. Today, he needs hemodialysis to further resolve his acidosis and hyperkalemia. We need to try to wean the vasopressors as much as possible. I think his ventilator settings are adequate. I have switched his Decadron to Solu-Cortef. We will institute Protonix for GI prophylaxis. I have discontinued many of his oral medications, which will not be medically necessary for the time being. He can be fed yet as I doubt he has any type of bowel function. Job ID: [id number]
--- NOTE | 2019-02-12 08:33 | RAD ---
PORTABLE AP CHEST XRAY: HISTORY: Pneumonia. COMPARISON: 02/11/2019. FINDINGS: There has been interval placement of an endotracheal tube with the tip overlying T4 vertebral body an d above the level of the donte. There has also been interval placement of a nasogastric tube which courses into the left upper quadrant, the tip of which is not imaged. Right subclavian MediPort cath eter is stable in position. Pacing device overlies the left upper quadrant and lower chest. There i s right pleural effusion with pleural fluid layering along the right lateral chest. There is a quest ionable small left pleural effusion present. Area of parenchymal opacity in the right mid lung zone and right hilar region is again seen and these findings may be related to pneumonia or postobstructiv e changes and possibly neoplastic process. Lung apex is seen, better visualized on prior studies rel ated to patient's known right apical lung mass. The cardiac silhouette is magnified by projection. The patient is rotated to the left. There is pro minent right glenohumeral osteoarthritis and to a lesser extent on the left. IMPRESSION: 1. Right pleural effusion with mass-like opacity in the right hilar region with associated perihilar interstitial densities. These findings could be related to postobstructive pneumonitis or neoplasti c process with associated right pleural effusion. 2. Right apical lung mass visualized but better visualized on prior studies. 3. Interval placement of endotracheal tube and nasogastric tube. POS: EDUARDO
[2019-02-12] MEDS ORDERED: Enoxaparin Sodium 30 MG/0.3 ML SYRINGE SC SCH ×2 (09:00)
[2019-02-12] MEDS ORDERED: Pantoprazole 40 MG VIAL IVP SCH (09:00)
[2019-02-12] MEDS: Clopidogrel Bisulfate 75 MG TAB PO SCH (09:40)
[2019-02-12] MEDS: Aspirin 81 mg Enteric Coated Tablet PO SCH (09:40)
[2019-02-12] MEDS: Folic Acid 1 MG TAB PO SCH (09:40)
[2019-02-12] MEDS: guaiFENesin ER 600 MG TAB PO SCH ×2 (09:40→19:58)
[2019-02-12] MEDS: Saccharomyces boulardii 250 MG CAP PO SCH (09:41)
--- NOTE | 2019-02-12 10:39 | PDOC.HOSPP ---
- Subjective Encounter Date: 02/12/19 Encounter Time: 10:38 Subjective: Patient seen and examined, no issues overnight, remains intubated. - Objective Vital Signs & Weight: Vital Signs (12 hours) Temp Pulse Resp BP 02/12/19 08:00 98.4 F 28 H 02/12/19 06:36 82 111/58 L 02/12/19 06:31 82 28 H 02/12/19 06:00 98.2 F 02/12/19 04:00 100.0 F H 02/12/19 02:11 92 113/58 L 02/12/19 02:00 99.0 F 02/12/19 00:00 98.9 F Weight Admit Weight 212 lb Weight 214 lb 4.629 oz Most Recent Monitor Data Heart Rate from ECG 85 NIBP 150/118 NIBP BP-Mean 128 Respiration from ECG 3 SpO2 80 I&O: 02/11/19 02/12/19 02/13/19 06:59 06:59 06:59 Intake Total 180 2681.7 Output Total 320 740 50 Balance -140 1941.7 -50 Result Diagrams: 02/12/19 04:40 02/12/19 04:40 ROS - Medication Medications: Active Medications Generic Name Dose Route Start Last Admin Trade Name Freq PRN Reason Stop Dose Admin Acetaminophen 650 mg 01/27/19 08:05 01/28/19 21:59 Tylenol PO 650 mg Q4H PRN Administration Headache/Fever/Mild Pain (1-3) Albuterol/Ipratropium 3 ml 02/11/19 18:30 02/12/19 06:31 Duoneb NEB 3 ml [id number] FLOR Administration Aspirin 81 mg 01/28/19 09:00 02/12/19 09:40 Ecotrin PO Not Given DAILY [facility] Clopidogrel Bisulfate 75 mg 01/28/19 09:00 02/12/19 09:40 Plavix PO Not Given DAILY [facility] Cyanocobalamin 1,000 mcg 02/07/19 15:00 02/07/19 14:51 Vitamin B-12 SC 1,000 mcg WILLCALL FLOR Administration Folic Acid 1 mg 02/08/19 09:00 02/12/19 09:40 Folvite PO Not Given DAILY [facility] Guaifenesin 200 mg 01/27/19 08:05 02/03/19 15:49 Robitussin Sf PO 200 mg Q4H PRN Administration Cough Guaifenesin 1,200 mg 01/30/19 21:00 02/12/19 09:40 Mucinex PO Not Given Q12HR FLOR Sodium Bicarbonate 150 meq/ 1,150 mls @ 100 mls/hr 02/11/19 13:30 02/12/19 03 :44 Dextrose/Water IV 1,150 mls .[id number] FLOR Administration Fentanyl Citrate 2,000 mcg/ 100 mls @ 0 mls/hr 02/11/19 16:29 02/11/19 17:09 Sodium Chloride IV 03/13/19 16:29 100 mls INF FLOR Administration Protocol Per Protocol Piperacillin Sod/Tazobactam 100 mls @ 200 mls/hr 02/11/19 17:00 02/12/19 09: 40 Sod 2.25 gm/ Sodium Chloride IVPB 100 mls 0100,[id number],1700 FLOR Administration Norepinephrine Bitartrate 8 mg 250 mls @ 0 mls/hr 02/11/19 17:00 02/12/19 07: 26 / Dextrose/Water IVPB 250 mls INF PRN Administration TO MAINTAIN MAP > 65 Protocol As Directed Vasopressin 40 unit/ Sodium 102 mls @ 6 mls/hr 02/11/19 17:45 02/11/19 19:37 Chloride IV 102 mls INF FLOR Administration Protocol Epinephrine 4 mg/ Dextrose/ 254 mls @ 0 mls/hr 02/11/19 19:15 02/12/19 08:55 Water IV 254 mls INF FLOR Administration Protocol Titrate Lorazepam 2 mg 02/12/19 00:51 02/12/19 01:03 Ativan SLOW IVP 03/14/19 00:51 2 mg Q1H PRN Administration Breakthrough agitation Mometasone Furoate/Formoterol Fumar 2 puff 01/28/19 18:30 02/12/19 07:02 Dulera 200 Mcg/5 Mcg Inhaler INH 2 puff BID-RT FLOR Administration Nitroglycerin 0.4 mg 01/27/19 14:58 02/08/19 12:15 Nitrostat SL 1 tab Q5MIN PRN Administration Chest Pain Pantoprazole Sodium 40 mg 02/12/19 09:00 02/12/19 09:40 Protonix IVP 40 mg DAILY FLOR Administration Saccharomyces Boulardii 250 mg 01/27/19 09:00 02/12/19 09:41 Florastor PO Not Given DAILY FLOR Sodium Chloride 10 ml 02/02/19 09:00 02/12/19 09:41 Flush - Normal Saline IVF 10 ml Q12HR FLOR Administration Sodium Chloride 10 ml 02/02/19 07:18 02/08/19 20:43 Flush - Normal Saline IVF 10 ml PRN PRN Administration Saline Flush Throat Lozenges 1 tayo 01/27/19 08:05 02/09/19 09:55 Cepastat Lozenges PO 1 tayo Q2H PRN Administration Sore Throat - Exam General - other findings: intubated Eye: PERRL ENT: normocephalic atraumatic ENT - other findings: intubated Neck: supple Heart: RRR, no murmur Respiratory: CTAB, no wheezes, no rales Gastrointestinal: soft, non-tender, non-distended Hosp A/P (1) Acute hypoxemic respiratory failure Code(s): J96.01 - ACUTE RESPIRATORY FAILURE WITH HYPOXIA Status: Acute (2) Acute on chronic kidney failure Code(s): N17.9 - ACUTE KIDNEY FAILURE, UNSPECIFIED; N18.9 - CHRONIC KIDNEY DISEASE, UNSPECIFIED Status: Acute (3) Lung cancer Code(s): C34.90 - MALIGNANT NEOPLASM OF UNSP PART OF UNSP BRONCHUS OR LUNG Status: Acute (4) Hypertension Code(s): I10 - ESSENTIAL (PRIMARY) HYPERTENSION Status: Chronic Qualifiers: Hypertension type: essential hypertension Qualified Code(s): I10 - Essential (primary) hypertension (5) Obesity (BMI 30.0-34.9) Code(s): E66.9 - OBESITY, UNSPECIFIED Status: Chronic - Plan - cont current plan of care - no family at bedside - pulmonary following for vent management - overall prognosis does not appear to be good - attempt made to contact family but no answer on phone number listed
[2019-02-12] MEDS: Norepinephrine 16 MG in Dextrose 5% in Water 234 ML IVPB PRN ×2 (11:30→18:23)
[2019-02-12] MEDS: Hydrocortisone Sod Succ/PF 100 mg/2 ml Vial IVP SCH ×2 (11:35→17:52)
[2019-02-12 11:37] LABS: Actual Bicarbonate (HCO3a) 14.4 mEq/L (22-28); Base Excess (BEa) -10.9 mEq/L (-2.0 to +3.0); CO2 Tension 30.6 mmHg (35.0-45.0); Calcium, Ionized 0.83 mmol/L (1.12-1.30); Carboxyhemoglobin (COHb) 0.5 gm% (0.0-3.0); Hemoglobin (Hb) 12.9 g/dL (14.0-18.0); O2 Tension (PaO2) 86.5 mmHg (> 80.0); Potassium - ABG Lab 5.17 mmol/L (3.70-5.30); Puncture Site ALINE; pH, Arterial 7.29 (7.35-7.45)
[2019-02-12] MEDS ORDERED: Albumin 5% 250 ML ONE (11:48)
[2019-02-12] MEDS ORDERED: Albumin 25% 25 GM/100 ML BOT IVPB ONE (12:00)
[2019-02-12 14:30] VITALS: BP 108/65
[2019-02-12] MEDS ORDERED: Heparin 10,000 UNITS/1 ML VIAL ONE (15:00)
[2019-02-12] MEDS ORDERED: Famotidine 20 MG TAB PO SCH (21:00)
[2019-02-12 21:56] VITALS: TEMP 98.3
[2019-02-13] MEDS ORDERED: Insulin Regular 300 UNITS/3 ML VIAL IVP SCH (00:15)
[2019-02-13 00:40] LABS: Actual Bicarbonate (HCO3a) 12.2 mEq/L (22-28); Base Excess (BEa) -15.5 mEq/L (-2.0 to +3.0); Calcium, Ionized 0.84 mmol/L (1.12-1.30); Carboxyhemoglobin (COHb) 0.3 gm% (0.0-3.0); Hemoglobin (Hb) 10.9 g/dL (14.0-18.0); O2 Tension (PaO2) 85.9 mmHg (> 80.0); Potassium - ABG Lab 7.51 mmol/L (3.70-5.30)
[2019-02-13 00:52] LABS: BUN (Urea Nitrogen) 92 mg/dL (8.4-25.7); Calc. Creatinine Clearance 14 mL/min (70-130); Carbon Dioxide Less than 8 mmol/L (23-31); Chloride 90 mmol/L (98-107); Estimated GFR-MDRD 9; Glucose 175 mg/dL (80-115); Potassium 8.1 mmol/L (3.5-5.1); Sodium 127 mmol/L (136-145)
[2019-02-13 01:01] LABS: Lactic Acid 17.5 mmol/L (0.5-2.2)
[2019-02-13] MEDS ORDERED: Sodium Bicarb 50 MEQ/50 ML Abboject 8.4% SYRINGE ONE (01:11)
[2019-02-13] MEDS ORDERED: EPINEPHrine 1 MG/10 ML Abboject SYRINGE ONE (01:11)
[2019-02-13] MEDS ORDERED: Magnesium 5 GM/10 ML Abboject SYRINGE ONE (01:11)
[2019-02-13] MEDS ORDERED: Dextrose 50% Abboject 50 ML SYRINGE ONE ×2 (01:11→01:21)
[2019-02-13] MEDS ORDERED: Calcium Chloride 1 GM/10 ML Abboject SYRINGE ONE (01:11)
--- NOTE | 2019-02-13 01:16 | PDOC.EVN ---
Event Note - Event Note Event Note: Code Blue Resuscitation Note: Time of Code Blue: 0002 on 02/13/19 Time of CPR Initiated: 0002 Code Blue called at 0002 on 02/13/19 for asystole. I responded to code and upon arrival to room, CPR was in progress. Patient was admitted to hospital on for Acute Renal Failure and he has stage IV lung cancer and was s/p cardiac arrest on 01/11/19. He was on vasopressin gtt, levophed gtt, bicarb gtt and epinephrine gtt prior to this code. Pt had already been intubated on [facility] ventilation prior to this code as well. Patient went into cardiac arrest 5 times (asystole) and ROSC was achieved four times. During the 5th code, decided to stop code and cease resuscitative measures. ACLS algorithm was followed throughout codes. Details of code below. During first code: Epi was given X3, 2 g Mag given, 1 g calcium chloride given. was contacted. Patient achieve ROSC and labs were drawn. It was noted that K+ was elevated to 6.5 morning of 02/12/19. Hemodialysis was attempted that morning but had to be stopped due to hypotension. Patient went back into asystole and 2nd code was called at 0027. CPR initiated. Epi X2, bicarb, and insulin and D50 was given. ROSC was achieved. Pt went back into asystole and 3rd code was called at 0047. CPR initiated. Epi X2 and bicarb were given. ROSC was achieved. arrived to room and remained in room for remainder of codes. Pt went back into asystole and 4th code was called at 0059. CPR initiated. Epi X2 and bicarb were given. ROSC achieved. Pt went back into asystole and 5th code was called at 0123. CPR was initiated. Epi was given. ROSC achieved. Asystole occurred again at about 0142, and CPR was initiated, however, the patient's , who was present, requested us to stop resuscitative measures. Dr. Robert Byrne pronounced time of at 0147. There was no cardiac activity noted, no signs of breathing, pupils were fixed and dilated and pt did not respond to painful stimuli. Date/Time: 02/13/191928 I personally attended to the care of the patient with Dr Roberts from 1 to 0147 early this morning.
[2019-02-13] MEDS ORDERED: Sodium Bicarb 50 MEQ/50 ML VIAL ONE (01:18)
[2019-02-13] MEDS ORDERED: EPINEPHrine 1 MG/ML AMP ONE (01:20)
[2019-02-13] MEDS: Hydrocortisone Sod Succ/PF 100 mg/2 ml Vial IVP SCH (01:49)
[2019-02-13] MEDS: Sodium Bicarbonate 150 MEQ in Dextrose 5% in Water 1,000 ML IV SCH (01:50)
[2019-02-13 03:19] LABS: Puncture Site ALINE; pH, Arterial 7.16 (7.35-7.45)
--- NOTE | 2019-02-13 10:27 | CON ---
DATE OF CONSULTATION: 02/11/2019 CONSULTING PHYSICIAN: Neil Zapien MD REASON FOR CONSULTATION: Severe hyperkalemia, acute kidney injury. REASON FOR ADMISSION: Shortness of breath. HISTORY OF PRESENT ILLNESS: This is a 63-year-old male with history of recently diagnosed lung cancer, coronary artery disease, hypertension, hyperlipidemia, came to the hospital with shortness of breath. The patient stated he had lab work done today, which showed potassium of 7.8, BUN was 171 and creatinine was 9.6. Nephrology was consulted for emergent dialysis. The patient had coded today and was seen in ICU. When I saw him, he was already intubated. Family was waiting outside in the waiting room and he had a dialysis catheter placement. He is hypotensive despite on 2 pressors. PAST MEDICAL HISTORY: Positive for coronary artery disease, lung cancer, hypertension, hyperlipidemia, tobacco abuse. PAST SURGICAL HISTORY: Cardiac cath, right arm surgery, right foot surgery. HOME MEDICATIONS: 1. Nitroglycerin. 2. Amlodipine. 3. Aspirin. 4. Lipitor. 5. Clonidine. 6. Plavix. 7. Lisinopril. 8. Metoprolol. ALLERGIES: NO KNOWN DRUG ALLERGIES. SOCIAL HISTORY: History of smoking. FAMILY HISTORY: No history of kidney disease. REVIEW OF SYSTEMS: Could not be obtained as he is intubated. PHYSICAL EXAMINATION: GENERAL: This is a well-built male, seen in ICU, intubated. VITAL SIGNS: Temperature , blood pressure of 98/76. HEENT: Intubated. CV: S1 and S2 heard. RESPIRATORY: Coarse breath sounds. GI: Abdomen is distended, soft. MUSCULOSKELETAL: 2 to 3+ edema. DERMATOLOGIC: NEUROLOGIC: Intubated. LABORATORY DATA: Potassium is 7.8, BUN is 179, creatinine is 9.6, hemoglobin 13.7. ASSESSMENT AND PLAN: 1. Acute kidney injury, worsening labs. The patient needs emergent dialysis due to severe life-threatening hyperkalemia, appreciate assistance for line placement. 2. Hyperkalemia. Plan is to do emergent dialysis. 3. Metabolic acidosis. 4. Lactic acidosis. 5. Edema 6. Hypertension. 7. Acute hypoxic respiratory failure. 8. Prognosis guarded. The patient is high risk for complication during dialysis given hypotension despite being on pressors. Due to severe life-threatening hyperkalemia, family is agreeable to have emergent dialysis and plan is to have dialysis for 2-1/2 hours today as tolerated. We will continue close monitoring. Job ID: [id number] MTDD
--- NOTE | 2019-02-13 11:56 | OP ---
DATE OF PROCEDURE: 02/11/2019 PROCEDURE: Left femoral dialysis catheter placement. INDICATION: This is a 63-year-old male, who had a cardiac arrest on the floor. He has been found to have acute renal failure and hyperkalemia. He needs emergent dialysis. DESCRIPTION OF PROCEDURE: Informed consent was obtained from the patient's son verbally. He understood the risks and agreed to have his father proceed. The patient was in the supine position. His left femoral area was prepped with chlorhexidine and draped sterilely. No anesthetic was used for the procedure. The patient was not moving or responsive to pain. Using modified Seldinger technique, a Trialysis catheter was placed in the left femoral vein without difficulty. Three ports flushed venous blood. Job ID: [id number]
--- NOTE | 2019-02-13 14:27 | PRG ---
DATE OF SERVICE: 02/12/2019 SUBJECTIVE: The patient was seen and examined at bedside. He is in ICU. No family members available. The patient remains intubated, not much urine output. He could not tolerate dialysis this morning. He was hypotensive in 50s/40s. His potassium is slightly better. OBJECTIVE: GENERAL: This is a well-built male, seen in ICU, intubated. VITAL SIGNS: Temperature 98.6, pulse 89, respiratory rate 12, and blood pressure 109/65. HEENT: Intubated. CARDIOVASCULAR: S1 and S2 heard. RESPIRATORY: Clear. GASTROINTESTINAL: Abdomen distended . MUSCULOSKELETAL: No tenderness. No edema. DERMATOLOGIC: No skin rash. NEUROLOGIC: Intubated. LABORATORY DATA: Potassium 6.5 down to 5.1 after attempted dialysis, BUN 112, creatinine is 7.2. ASSESSMENT AND PLAN: 1. Acute kidney injury, dialysis dependent, but not able to tolerate dialysis well hyperkalemia is better. We will continue dialysis if tolerated. Prognosis is guarded. 2. Hyponatremia. 3. Metabolic acidosis. 4. Uremia. 5. Hypocalcemia. 6. Lactic acidosis. 7. Acute hypoxic respiratory failure. 8. Recent history of cancer. Prognosis guarded. The patient is not able to tolerate dialysis well. Potassium seems to be better. We will continue close monitoring. Job ID: [id number]
--- NOTE | 2019-02-13 18:01 | EKG ---
Test Reason : Blood Pressure : / mmHG Vent. Rate : 079 BPM Atrial Rate : 079 BPM P-R Int : 138 ms QRS Dur : 074 ms QT Int : 378 ms P-R-T Axes : 063 063 106 degrees QTc Int : 433 ms Normal sinus rhythm Possible Left atrial enlargement Nonspecific T wave abnormality Abnormal ECG When compared with ECG of 24-JAN-2019 12:12, Nonspecific T wave abnormality now evident in Inferior leads T wave inversion no longer evident in Lateral leads Confirmed by ANNABELLA HERNANDEZ (2) on 02/13/2019 6:00:12 PM Referred By: Confirmed By:ANNABELLA HERNANDEZ
--- NOTE | 2019-02-13 18:10 | EKG ---
Test Reason : Blood Pressure : / mmHG Vent. Rate : 146 BPM Atrial Rate : 192 BPM P-R Int : 000 ms QRS Dur : 072 ms QT Int : 340 ms P-R-T Axes : 000 076 028 degrees QTc Int : 529 ms Atrial fibrillation with rapid ventricular response Nonspecific ST abnormality , probably digitalis effect Abnormal ECG When compared with ECG of 01-FEB-2019 15:35, (Unconfirmed) Atrial fibrillation has replaced Sinus rhythm Vent. rate has increased BY [address] now depressed in Lateral leads Nonspecific T wave abnormality, worse in Anterior leads Confirmed by ANNABELLA HERNANDEZ (2) on 02/13/2019 6:10:11 PM Referred By: Confirmed By:ANNABELLA HERNANDEZ
--- NOTE | 2019-02-17 00:41 | PQF ---
[employer] Manager Advanced Crystal Reports Winform ViewerBAY PINESTHOMAS YI SCOTT E MD [id number] CLINICAL DOCUMENTATION CLARIFICATION FORM: POST DISCHARGE Addendum to original discharge summary date: ____ Late entry note date: [id number] DATE: 02/17/2019 ATTN: MONICA CHAVEZ MD Please exercise your independent, professional judgment in responding to the clarification form. Clinical indicators are provided on the bottom of this form for your review Please check appropriate box(s) to clarify if the following diagnosis has been ruled in or ruled out: x SEPSIS (CDI/Coding list diagnosis here) [ ] Ruled in diagnosis [ ] Continue to treat [ ] Resolved [ ] Ruled out diagnosis [ ] Cannot rule out diagnosis [ ] Other diagnosis [x ] Unable to determine In addition, please specify: Present on Admission (POA): [ ] Yes [ x ] No [ ] Unable to determine For continuity of documentation, please document condition throughout progress notes and discharge summary. Thank You. CLINICAL INDICATORS - SIGNS / SYMPTOMS / LABS RR 28 on 02/12 - Documented in Vital Signs BP 53/24 on 02/11 - Documented in Vital Signs WBC 19.1 - Documented in Laboratory result Lactic acid 17.5 - Documented in Laboratory result NATHAN - Documented inProgress notes on 02/12 by Cinthia Ruiz MD Metaolic acidosis may be due to renal failure or could be due to Sepsis - Documented in Hospital PNs 02/11/19 by Neil Zapien RISK FACTORS Acute hypoxic respiratory failure - Documented inProgress notes on 02/12 by Cinthia Ruiz MD Lung cancer - Documented in Hospital PNs on 02/12/19 by Patankar, Olvin TREATMENTS initiate empiric antibiotics for sepsis and draw appropriate culture given recent chemotherapy - Documented in Progress notes on 02/11/19 byMONICA CHAVEZ MD Ceftriaxone/Rocephin 1 gm - Socumented in Medications List (This form is maintained as a part of the permanent medical record) 2014 [employer]. All Rights Reserved [email or web address] [not provided] MTDD
--- NOTE | 2019-02-17 01:00 | PQF ---
[employer] Toddler Lead Teacher Crystal Reports Winform ViewerHUTHOMAS YI SCOTT E MD [id number] CLINICAL DOCUMENTATION CLARIFICATION FORM: POST DISCHARGE Addendum to original discharge summary date: ____ Late entry note date: 9-59-1996 DATE: 02/17/2019 ATTN: MONICA CHAVEZ MD Please exercise your independent, professional judgment in responding to the clarification form. Clinical indicators are provided on the bottom of this form for your review Please check appropriate box(s): [ ] Hypovolemic Shock [ ] Cardiogenic Shock [ ] Septic Shock [ ] Hemorrhagic Shock due to surgery: [ ] Neurogenic Shock [ x] Shock Unspecified [ ] Other diagnosis [ ] Unable to determine In addition, please specify: Present on Admission (POA): [ ] Yes [ x ] No [ ] Unable to determine For continuity of documentation, please document condition throughout progress notes and discharge summary. Thank You. CLINICAL INDICATORS - SIGNS / SYMPTOMS / LABS Metabolic acidosis - Documented in Progress notes on 02/12/19 by MONICA CHAVEZ MD Acute renal failure - Documented in Progress notes on 02/12/19 by MONICA CHAVEZ MD Shock - Documented in Progress notes on 02/12/19 by MONICA CHAVEZ MD BP 53/24 on 02/11 - Documented in Vital Signs Lactic acid 17.5 - Documented in Laboratory result RR 28 on 02/12 - Documented in Vital Signs RISK FACTORS Question of concurrent sepsis syndrome - Documented in Progress notes on by MONICA CHAVEZ MD Cardiopulmonary Arrest - Documented in Progress notes on 02/12/19 by MONICA CHAVEZ MD TREATMENTS: Ceftriaxone/Rocephin 1 gm - Documented in Medications List Mechanical ventilation - Documented in Event note on 02/13/19 by Jourdan Roberts MD CPR - Documented in Event note on 02/13/19 by Jourdan Roberts MD Vasopressin gtt - Documented in Event note on 02/13/19 by Jourdan Roberts MD (This form is maintained as a part of the permanent medical record) 2014 [employer]. All Rights Reserved [email or web address] [not provided] MTDD
--- NOTE | 2019-02-17 02:17 | PQF ---
[employer] Interior Design Program Chair Crystal Reports Winform SantosANDERSONRENETHOMAS YUE MANE MD [id number] CLINICAL DOCUMENTATION CLARIFICATION FORM: POST DISCHARGE Addendum to original discharge summary date: ____ Late entry note date: __ DATE: 02/17/2019 ATTN: YUE MANE MD Please exercise your independent, professional judgment in responding to the clarification form. Clinical indicators are provided on the bottom of this form for your review Please check appropriate box(s) to clarify if the following diagnosis has been ruled in or ruled out: PNEUMONIA (CDI/Coding list diagnosis here) [ x ] Ruled in diagnosis [ x ] Continue to treat [ ] Resolved [ ] Ruled out diagnosis [ ] Cannot rule out diagnosis [ ] Other diagnosis [ ] Unable to determine In addition, please specify: Present on Admission (POA): [x ] Yes [ ] No [ ] Unable to determine For continuity of documentation, please document condition throughout progress notes and discharge summary. Thank You. CLINICAL INDICATORS - SIGNS / SYMPTOMS / LABS Pneumonia - Documented in ED notes on 01/27/19 by MD Fermin, Luke RR 28 on 02/12 - Documented in Vital Signs Patient has hilar consolidation - Documented in H&P on 01/27/19 by YUE MANE MD Pleural and pericardian effusion - Documented in H&P on 01/27/19 by YUE MANE MD Suspected pneumonia - Documented in H&P on 01/27/19 by YUE MANE MD RISK FACTORS Acute hypoxic respiratory failure - Documented inProgress notes on 02/12 by Cinthia Ruiz MD Lung cancer - Documented in H&P on 01/27/19 by YUE MAEN MD TREATMENTS we will treat with vancomycin and zosyn - Documented in H&P on 01/27/19 by YUE MANE MD Ceftriaxone/Rocephin 1 gm - Socumented in Medications List Chest Xray [employer] Interior Design Program Chair Crystal Reports Winform Viewer (This form is maintained as a part of the permanent medical record) 2014 [employer]. All Rights Reserved [email or web address] [not provided] MTDD
== END 2019-02-13 01:47 | disposition expired | DRG 823 ==
LOC: ERS 00:47 → T4-B 07:14 → 2NO 01-28 20:08 → ONC 02-11 11:33 → IMCU/EMU 02-11 14:14 → CCU 02-11 16:44
PROVIDERS: ADMIT Hospitalist; ATTEND Hospitalist
PROC: 07B13ZX Excision of Right Neck Lymphatic, Percutaneous Approach, Diagnostic (ICD-10-PCS; principal; 2019-01-27)
PROC: 07B13ZX Excision of Right Neck Lymphatic, Percutaneous Approach, Diagnostic (ICD-10-PCS; 2019-01-30)
PROC: 0JH60WZ Insertion of Totally Implantable Vascular Access Device into Chest Subcutaneous Tissue and Fascia, Open Approach (ICD-10-PCS; 2019-02-03)
PROC: 02HV33Z Insertion of Infusion Device into Superior Vena Cava, Percutaneous Approach (ICD-10-PCS; 2019-02-03)
PROC: B5181ZA Fluoroscopy of Superior Vena Cava using Low Osmolar Contrast, Guidance (ICD-10-PCS; 2019-02-03)
PROC: 3E03305 Introduction of Other Antineoplastic into Peripheral Vein, Percutaneous Approach (ICD-10-PCS; 2019-02-07)
PROC: 06HY33Z Insertion of Infusion Device into Lower Vein, Percutaneous Approach (ICD-10-PCS; 2019-02-11)
PROC: 06HY33Z Insertion of Infusion Device into Lower Vein, Percutaneous Approach (ICD-10-PCS; 2019-02-11)
PROC: 04H Lower Arteries, Insertion (ICD-10-PCS; 2019-02-11)
PROC: 5A1D70Z Performance of Urinary Filtration, Intermittent, Less than 6 Hours Per Day (ICD-10-PCS; 2019-02-11)
PROC: 0BH17EZ Insertion of Endotracheal Airway into Trachea, Via Natural or Artificial Opening (ICD-10-PCS; 2019-02-11)
PROC: 5A1945Z Respiratory Ventilation, 24-96 Consecutive Hours (ICD-10-PCS; 2019-02-11)
PROC: 3E033XZ Introduction of Vasopressor into Peripheral Vein, Percutaneous Approach (ICD-10-PCS; 2019-02-13)
PROC: 5A12012 Performance of Cardiac Output, Single, Manual (ICD-10-PCS; 2019-02-13)
DX: C77.0 Secondary and unspecified malignant neoplasm of lymph nodes of head, face and neck (principal); J96.21 Acute and chronic respiratory failure with hypoxia; J18.9 Pneumonia, unspecified organism; C34.11 Malignant neoplasm of upper lobe, right bronchus or lung; I31.3 Pericardial effusion (noninflammatory); N17.9 Acute kidney failure, unspecified; J90 Pleural effusion, not elsewhere classified; I13.0 Hypertensive heart and chronic kidney disease with heart failure and stage 1 through stage 4 chronic kidney disease, or unspecified chronic kidney disease; E87.2 Acidosis; J44.0 Chronic obstructive pulmonary disease with (acute) lower respiratory infection; E87.1 Hypo-osmolality and hyponatremia; I47.2 Ventricular tachycardia; I48.92 Unspecified atrial flutter; R57.9 Shock, unspecified; E78.00 Pure hypercholesterolemia, unspecified; F17.210 Nicotine dependence, cigarettes, uncomplicated; I25.10 Atherosclerotic heart disease of native coronary artery without angina pectoris; N18.2 Chronic kidney disease, stage 2 (mild); R59.9 Enlarged lymph nodes, unspecified; I50.9 Heart failure, unspecified; I48.0 Paroxysmal atrial fibrillation; J20.9 Acute bronchitis, unspecified; R62.7 Adult failure to thrive; E87.5 Hyperkalemia; I95.9 Hypotension, unspecified; I46.9 Cardiac arrest, cause unspecified; E66.9 Obesity, unspecified; J31.0 Chronic rhinitis; E83.51 Hypocalcemia; Z68.30 Body mass index [BMI] 30.0-30.9, adult; I25.2 Old myocardial infarction; Z79.82 Long term (current) use of aspirin; Z79.02 Long term (current) use of antithrombotics/antiplatelets; Z79.899 Other long term (current) drug therapy; Z99.81 Dependence on supplemental oxygen; Z95.5 Presence of coronary angioplasty implant and graft; Z98.890 Other specified postprocedural states; Z91.14 Patient's other noncompliance with medication regimen
CPT/HCPCS: 36415; 36416; 70491; 70492; 70553; 71045; 71275; 74177; 80048; 80053; 81001; 81210; 81235; 82805; 83605; 83735; 83880; 84484; 85025; 85379; 87040; 87045; 87046; 87324; 87340; 87449; 87899; 88305; 88341; 88342; 88360; 88377; 90471; 90732; 90935; 92950; 93005; 93010; 93306; 94002; 94003; 94640; 94660; 96365; 96367; 96375; C1752; C1788; C9113; G0009; G0257; J0171; J0360; J0456; J0670; J0690; J0696; J1100; J1642; J1644; J1650; J1720; J1815; J2001; J2060; J2250; J2405; J2469; J2543; J2920; J3010; J3420; J3475; J3490; J7050; J7070; J7512; J7620; J9045; J9271; J9305; P9045; P9047; Q0162; Q9966; Q9967; S0028